=== PATIENT | female | born 1955 | race African-American/Black ===

== ENCOUNTER 2017-10-01 12:44 | Outpatient (CLI) | payer MEDICARE, OTHER ==
[2017-10-01 14:37] LABS: Anion Gap 11 mmol/L (10-20); BUN (Urea Nitrogen) 18 mg/dL (9.8-20.1); Calc. Creatinine Clearance 0 mL/min (70-130); Calcium 9.6 mg/dL (7.8-10.44); Carbon Dioxide 28 mmol/L (23-31); Chloride 103 mmol/L (98-107); Estimated GFR-MDRD 38
--- NOTE | 2017-10-03 16:00 | EKG ---
Test Reason : Blood Pressure : / mmHG Vent. Rate : 053 BPM Atrial Rate : 053 BPM P-R Int : 196 ms QRS Dur : 108 ms QT Int : 490 ms P-R-T Axes : 052 022 -34 degrees QTc Int : 459 ms Sinus bradycardia Minimal voltage criteria for LVH, may be normal variant Abnormal ECG When compared with ECG of 03-DEC-2013 15:19, Vent. rate has decreased BY [address] now depressed in Inferior leads Non-specific change in ST segment in Lateral leads T wave inversion now evident in Lateral leads Confirmed by DR. Sandro JACOBSEN ([id number]) on 10/03/2017 4:00:20 PM Referred By: RENARD Confirmed By:DR. Sandro JACOBSEN
== END 2017-10-01 12:45 | disposition home or self-care (01) ==
LOC: LABBT 12:44
PROVIDERS: ATTEND Surgery
DX: Z01.812 Encounter for preprocedural laboratory examination (principal); Z51.81 Encounter for therapeutic drug level monitoring; C50.111 Malignant neoplasm of central portion of right female breast; I63.9 Cerebral infarction, unspecified; Z79.01 Long term (current) use of anticoagulants
CPT/HCPCS: 80048; 93005; 93010

== ENCOUNTER 2018-08-19 08:18 | Outpatient (CLI) | payer MEDICARE | END 2018-08-19 08:19 | disposition home or self-care (01) | LOC: BICMAMMO 08:18 | PROVIDERS: ATTEND Radiology Radiation Oncology | DX: C50.511 Malignant neoplasm of lower-outer quadrant of right female breast (principal); Z80.3 Family history of malignant neoplasm of breast; Z85.3 Personal history of malignant neoplasm of breast; Z80.41 Family history of malignant neoplasm of ovary; Z98.890 Other specified postprocedural states | CPT/HCPCS: 77066; G0279 ==

== ENCOUNTER 2019-01-08 07:33 | Day surgery (SDC) | payer MEDICARE ==
[2019-01-07 15:00] VITALS: BMI 43.2
[2019-01-08] MEDS ORDERED: Insulin Regular 300 UNITS/3 ML VIAL ONE (09:46)
--- NOTE | 2019-01-08 12:25 | OP ---
DATE OF PROCEDURE: 01/08/2019 PROCEDURES: Esophagogastroduodenoscopy and colonoscopy with snare polypectomy. PREOPERATIVE DIAGNOSIS: Iron deficiency anemia. DESCRIPTION OF PROCEDURE: Informed consent was obtained from the patient. She was sedated with total intravenous anesthesia. The bite block was placed and the endoscope was advanced easily to the second portion of the duodenum and retroflexion was performed in the stomach. The esophagus was normal. The GE junction was normal. The stomach was normal including retroflexed views. The pylorus and first and second portions of the duodenum were normal. The patient was turned around. Rectal exam was performed and was normal. The colonoscope was advanced to the cecum, where the ileocecal valve and appendiceal orifice were clearly identified. A 7-to 8-mm sessile polyp was removed by snare cautery polypectomy from the hepatic flexure. A 4-mm polyp was removed by cold snare polypectomy from the descending colon. The remainder of the colonic mucosa was normal throughout. The preparation quality was good. Retroflexed views in the rectum revealed moderate internal hemorrhoids. IMPRESSION: 1. Normal esophagogastroduodenoscopy. 2. A 7-to 8-mm ascending polyp removed by hot snare. 3. A 4-mm descending polyp removed by cold snare. 4. Moderate internal hemorrhoids. 5. No source for the iron deficiency anemia was identified by this exam. She was noted to have hemoglobin in the 8.7 range and a ferritin of 14 to 15. RECOMMENDATIONS: 1. Await histopathology. 2. Repeat colonoscopy in 3 to 5 years depending on pathology results. 3. Capsule endoscopy as an outpatient. Job ID: [id number]
[2019-01-08] MEDS ORDERED: hydrALAZINE 20 MG/ML VIAL ONE (12:27)
[2019-01-08] MEDS ORDERED: PROPOFOL 200 MG/20 ML VIAL ONE (15:52)
== END 2019-01-08 13:00 | disposition home or self-care (01) ==
LOC: SDC 07:33
PROVIDERS: ATTEND Internal Medicine Gastroenterology
PROC: 0DJ08ZZ Inspection of Upper Intestinal Tract, Via Natural or Artificial Opening Endoscopic (ICD-10-PCS; principal; 2019-01-08)
PROC: 0DBM8ZX Excision of Descending Colon, Via Natural or Artificial Opening Endoscopic, Diagnostic (ICD-10-PCS; 2019-01-08)
PROC: 0DBL8ZX Excision of Transverse Colon, Via Natural or Artificial Opening Endoscopic, Diagnostic (ICD-10-PCS; 2019-01-08)
DX: D50.9 Iron deficiency anemia, unspecified (principal); D12.3 Benign neoplasm of transverse colon; K63.5 Polyp of colon; K64.8 Other hemorrhoids; I11.0 Hypertensive heart disease with heart failure; I50.9 Heart failure, unspecified; E11.9 Type 2 diabetes mellitus without complications; I25.10 Atherosclerotic heart disease of native coronary artery without angina pectoris; I25.2 Old myocardial infarction; E78.5 Hyperlipidemia, unspecified; Z86.010 Personal history of colon polyps; Z79.02 Long term (current) use of antithrombotics/antiplatelets; Z79.4 Long term (current) use of insulin; Z79.811 Long term (current) use of aromatase inhibitors; Z79.82 Long term (current) use of aspirin; Z79.899 Other long term (current) drug therapy; Z88.0 Allergy status to penicillin; Z88.5 Allergy status to narcotic agent
CPT/HCPCS: 36416; 88305; J0360; J1815; J2704

== ENCOUNTER 2019-03-05 12:07 | Outpatient (CLI) | payer MEDICARE ==
--- NOTE | 2019-03-05 12:43 | RAD ---
TWO VIEWS ABDOMEN: COMPARISON: None. HISTORY: Iron deficiency anemia. Evaluating for a camera pill taken for endoscopy. FINDINGS: Two views of the abdomen show a nonspecific, nonobstructed bowel gas pattern. Cholecystectomy clips are seen. No other radiopaque foreign body is seen projecting over the abdomen. IMPRESSION: Nonvisualization of camera pill. POS: TPC
== END 2019-03-05 12:08 | disposition home or self-care (01) ==
LOC: BICRAD 12:07
PROVIDERS: ATTEND Internal Medicine Gastroenterology
DX: D50.9 Iron deficiency anemia, unspecified (principal)
CPT/HCPCS: 74019

== ENCOUNTER 2019-03-26 08:50 | Outpatient (CLI) | payer MEDICARE ==
--- NOTE | 2019-03-26 09:51 | BD ---
DEXA SCAN: DATE: 03/26/2019. PROVIDED CLINICAL HISTORY: Postmenopausal screening. FINDINGS: Lumbar Spine: BMD (g/cm2) L1 1.126 T-Score: 1.2 L2 1.146 T-Score: 1.1 L3 1.100 T-Score: 0.1 L4 1.027 T-Score: -0.3 L1-L4 1.096 T-Score: 0.4 Femoral Neck: 0.720 T-Score: -1.2 Total Femur: 1.067 T-Score: 1.0 TEN YEAR FRACTURE RISK: Major osteoporotic 14%. Hip fracture 1.3%. Impression: Calculated bone mineral density meets WHO criteria for osteopenia in the left femoral neck and places the patient at increased risk for fracture. POS: JAQUELINE
== END 2019-03-26 08:51 | disposition home or self-care (01) ==
LOC: BICMAMMO 08:50
PROVIDERS: ATTEND Internal Medicine Hematology & Oncology
DX: Z13.820 Encounter for screening for osteoporosis (principal); T38.6X5A Adverse effect of antigonadotrophins, antiestrogens, antiandrogens, not elsewhere classified, initial encounter; C50.919 Malignant neoplasm of unspecified site of unspecified female breast; M85.89 Other specified disorders of bone density and structure, multiple sites
CPT/HCPCS: 77080

== ENCOUNTER 2019-07-27 15:03 | Outpatient (CLI) | payer MEDICARE ==
--- NOTE | 2019-07-27 15:42 | ULT ---
Exam: Right lower extremity venous ultrasound with Doppler HISTORY: Pain. Edema. Swelling. COMPARISON: None TECHNIQUE: Grayscale, color flow, Doppler imaging and spectral wave right lower extremity venous syst em FINDINGS: Enlarged right inguinal lymph node measuring 3.2 x 0.8 x 1 There is compressibility, presence of flow and augmentation common femoral vein, femoral vein and pop liteal vein. This flow and augmentation in the greater saphenous vein, profunda femoral vein and posterior tibial vein. IMPRESSION: 1. No thrombus in the right venous system. 2. Enlargement right inguinal lymph node.
== END 2019-07-27 15:04 | disposition home or self-care (01) ==
LOC: ULT 15:03
PROVIDERS: ATTEND Internal Medicine Hematology & Oncology
DX: M79.604 Pain in right leg (principal); R60.0 Localized edema; M79.89 Other specified soft tissue disorders; R59.0 Localized enlarged lymph nodes
CPT/HCPCS: 36415; 82728

== ENCOUNTER 2020-04-17 08:59 | Outpatient (CLI) | payer MEDICARE ==
--- NOTE | 2020-04-17 10:03 | MMO ---
Bilateral MAMMO Bilat Diag DDI+AYANA. CLINICAL HISTORY: Patient is 64 years old and is seen for diagnostic exam. The patient has the following family history of breast cancer: sister, malignant (generic). The patient has a history of Excisional biopsy procedure revealed invasive ductal right breast carcinoma in August, and ovarian cancer at age 37. VIEWS: The views performed were: bilateral craniocaudal with tomosynthesis; bilateral mediolateral oblique with tomosynthesis; and bilateral mediolateral with tomosynthesis. FILMS COMPARED: The present examination has been compared to prior imaging studies performed at [facility] on 06/21/2016, 06/23/2017, 07/07/2017 and 08/19/2018. This study has been interpreted with the assistance of computer-aided detection. MAMMOGRAM FINDINGS: There are scattered fibroglandular densities. Benign calcifications are noted bilaterally. There are stable right sided post-operative changes. There are no suspicious masses, suspicious calcifications, or new areas of architectural distortion. IMPRESSION: THERE IS NO MAMMOGRAPHIC EVIDENCE OF MALIGNANCY. A ROUTINE FOLLOW-UP MAMMOGRAM IN 1 YEAR IS RECOMMENDED. THE RESULTS OF THIS EXAM WERE SENT TO THE PATIENT. ACR BI-RADS Category 2 - Benign finding MAMMOGRAPHY NOTE: 1. A negative mammogram report should not delay a biopsy if a dominant of clinically suspicious mass is present. 2. Approximately 10% to 15% of breast cancers are not detected by mammography. 3. Adenosis and dense breasts may obscure an underlying neoplasm. Reported by: SHYANN SHETTY MD Electonically Signed: [id number]
--- NOTE | 2020-04-17 10:38 | BD ---
DEXA BONE DENSITOMETRY: (Dual energy x-ray absorptiometry) DATE: 04/17/2020 HISTORY: 64-year old white female for age-related, post-menopausal, osteoporosis screening. weight: 254 lbs height: 63 in. Age of menopause: 37 COMPARISON: 03/26/2019 FINDINGS: The bone mineral density (BMD) is given in grams per square centimeter (g/cm2): LUMBAR SPINE: BMD (g/cm^2) T score Z score L1: 1.049 0.5 2.2 L2: 1.088 0.5 2.4 L3: 1.006 -0.7 1.2 L4: 1.234 1.6 3.6 Total: 1.099 0.5 2.3 Change in BMD compared to previous DEXA: +0.2 %. HIP: BMD (g/cm^2) T score Z score Femoral neck: 0.738 -1.0 0.6 Total: 1.047 0.9 2.2 Change in BMD compared to previous DEXA: -1.9 %. IMPRESSION: 1.) The mean bone mineral density of the lumbar spine is normal. Fracture risk is not increased. 2) The bone mineral density of the femoral neck is osteopenic. Fracture risk is increased.
== END 2020-04-17 09:00 | disposition home or self-care (01) ==
LOC: BICMAMMO 08:59
PROVIDERS: ATTEND Internal Medicine Hematology & Oncology
DX: Z08 Encounter for follow-up examination after completed treatment for malignant neoplasm (principal); Z13.820 Encounter for screening for osteoporosis; M85.859 Other specified disorders of bone density and structure, unspecified thigh; Z85.3 Personal history of malignant neoplasm of breast; Z78.0 Asymptomatic menopausal state
CPT/HCPCS: 77066; 77080; G0279

== ENCOUNTER 2020-04-17 13:14 | Day surgery (SDC) | payer MEDICARE ==
[~2020-04-17 13:14] MED LIST: Ferumoxytol (NON ERSD) 510 MG in Sodium Chloride 0.9% 150 ML IVPB SCH
[2020-04-17] MEDS ORDERED: Sodium Chloride 0.9% 20 ML ONE (13:30)
[2020-04-17 13:59] VITALS: BP 153/77; TEMP 97.8
== END 2020-04-17 15:05 | disposition home or self-care (01) ==
LOC: ONC/OP 13:14
PROVIDERS: ATTEND Internal Medicine Hematology & Oncology
DX: D50.8 Other iron deficiency anemias (principal); N18.3 Chronic kidney disease, stage 3 (moderate); D63.1 Anemia in chronic kidney disease; C50.111 Malignant neoplasm of central portion of right female breast; Z88.0 Allergy status to penicillin; Z88.5 Allergy status to narcotic agent
CPT/HCPCS: 96365; J3490; Q0138

== ENCOUNTER 2020-04-27 09:50 | Day surgery (SDC) | payer MEDICARE ==
[~2020-04-27 09:50] MED LIST changes: +Ferumoxytol (ERSD) 510 MG in Sodium Chloride 0.9% 250 ML 150 ML IVPB SCH; -Ferumoxytol (NON ERSD) 510 MG in Sodium Chloride 0.9% 150 ML IVPB SCH
[2020-04-27] MEDS ORDERED: Sodium Chloride 0.9% 20 ML ONE (09:59)
[2020-04-27 10:25] VITALS: BP 198/93; TEMP 98.5
== END 2020-04-27 11:35 | disposition home or self-care (01) ==
LOC: ONC/OP 09:50
PROVIDERS: ATTEND Internal Medicine Hematology & Oncology
DX: D50.8 Other iron deficiency anemias (principal); N18.3 Chronic kidney disease, stage 3 (moderate); D63.1 Anemia in chronic kidney disease; C50.111 Malignant neoplasm of central portion of right female breast; Z88.0 Allergy status to penicillin; Z88.5 Allergy status to narcotic agent
CPT/HCPCS: 96365; J7050; Q0139

== ENCOUNTER 2020-05-04 09:56 | Day surgery (SDC) | payer MEDICARE ==
[2020-05-04 11:15] LABS: #Eosinphils 0.1 thou/uL (0.0-0.7); #Lymphocytes 1.8 thou/uL (1.20-3.40); #Monocytes 0.5 thou/uL (0.11-0.59); #Neutrophils 5.2 thou/uL (1.40-6.50); %Basophils 0.6 % (0.0-1.0); %Eosinophils 1.2 % (0.0-10.0); %Lymphocytes 23.9 % (21.0-51.0); %Monocytes 6.5 % (0.0-10.0); %Neutrophils 67.9 % (42.0-75.0); Elliptocytes SLIGHT = 2-5 cells (100X) (0-1/hpf); Hemoglobin 10.6 g/dL (12.0-16.0); Large Platelets SLIGHT; MDiff Complete? YES; Mean Corpuscular HGB CONC 32.8 g/dL (32.0-36.0); Mean Corpuscular Hemoglobin 26.3 pg (27.0-31.0); Mean Corpuscular Volume 80.1 fL (78.0-98.0); Platelet Count 102 thou/uL (130-400); Platelet Morphology Comment Appears Decreased; RBC Distribution Width 18.5 % (11.5-14.5); Red Blood Cell (RBC) Count 4.03 mill/uL (4.20-5.40); White Blood Cell (WBC) Count 7.7 thou/uL (4.8-10.8)
== END 2020-05-04 12:50 | disposition home or self-care (01) ==
LOC: ONC/OP 09:56
PROVIDERS: ATTEND Internal Medicine Hematology & Oncology
DX: D50.8 Other iron deficiency anemias (principal); N18.3 Chronic kidney disease, stage 3 (moderate); D63.1 Anemia in chronic kidney disease; C50.111 Malignant neoplasm of central portion of right female breast; Z88.0 Allergy status to penicillin; Z88.5 Allergy status to narcotic agent
CPT/HCPCS: 85025; 96365; J7050; Q0139

== ENCOUNTER 2020-11-23 08:59 | Inpatient (IN) | payer MEDICARE ==
[2020-11-23] MEDS ORDERED: Aspirin Chewable 81 MG TAB ONE (09:21)
[2020-11-23] MEDS ORDERED: Ondansetron PF 4 MG/2 ML Vial ONE (09:21)
--- NOTE | 2020-11-23 09:36 | RAD ---
Exam: Chest one view HISTORY:Chest pain Comparison: 01/31/2015 FINDINGS: Cardiac silhouette: Normal Aorta: Atherosclerosis Pulmonary vessels: Normal Costophrenic angles: Clear LUNGS: Chronic changes in the lung bases. No mass or consolidation. Pneumothorax: None Osseous abnormalities: None IMPRESSION: 1. Atherosclerosis 2. No acute cardiopulmonary process.
[2020-11-23 10:08] LABS: #Basophils 0.1 thou/uL (0.0-0.2); #Eosinphils 0.1 thou/uL (0.0-0.7); #Lymphocytes 1.4 thou/uL (1.20-3.40); #Monocytes 0.3 thou/uL (0.11-0.59); #Neutrophils 7.4 thou/uL (1.40-6.50); %Basophils 0.7 % (0.0-1.0); %Eosinophils 0.6 % (0.0-10.0); %Monocytes 2.9 % (0.0-10.0); %Neutrophils 80.9 % (42.0-75.0); Hemoglobin 13.8 g/dL (12.0-16.0); Mean Corpuscular HGB CONC 33.7 g/dL (32.0-36.0); Mean Corpuscular Hemoglobin 28.9 pg (27.0-31.0); Mean Corpuscular Volume 85.8 fL (78.0-98.0); Mean Platelet Volume 10.1 fL (7.4-10.4); Platelet Count 155 thou/uL (130-400); RBC Distribution Width 12.6 % (11.5-14.5); Red Blood Cell (RBC) Count 4.78 mill/uL (4.20-5.40); White Blood Cell (WBC) Count 9.1 thou/uL (4.8-10.8)
[2020-11-23 10:32] LABS: ALT (SGPT) 19 U/L (8-55); AST (SGOT) 22 U/L (5-34); Albumin 3.2 g/dL (3.4-4.8); Alkaline Phosphatase 88 U/L (40-110); Anion Gap 17 mmol/L (10-20); BUN (Urea Nitrogen) 31 mg/dL (9.8-20.1); Bilirubin, Total 0.3 mg/dL (0.2-1.2); Calc. Creatinine Clearance 0 mL/min (70-130); Carbon Dioxide 22 mmol/L (23-31); Chloride 96 mmol/L (98-107); Globulin 3.7 g/dL (2.4-3.5); Lipase 115 U/L (8-78); Potassium 4.8 mmol/L (3.5-5.1); Protein, Total 6.9 g/dL (6.0-8.3); Sodium 130 mmol/L (136-145)
[2020-11-23 10:37] LABS: Glucose 582 mg/dL (80-115)
[2020-11-23 10:51] LABS: CKMB 2.9 ng/mL (0-6.6)
[2020-11-23] MEDS ORDERED: Insulin Regular 300 UNITS/3 ML VIAL ONE (11:29)
[2020-11-23] MEDS ORDERED: Dextrose 50% Abboject 50 ML SYRINGE SLOW IVP PRN (13:14)
[2020-11-23] MEDS ORDERED: HumaLOG 300 UNITS/3 ML VIAL SC PRN (13:14)
[2020-11-23] MEDS ORDERED: Dextrose 5% in Water 1,000 ML IV PRN (13:14)
--- NOTE | 2020-11-23 13:44 | PDOC.HHP ---
Hospitalist HPI - History of Present Illness Chest pain History of Present Illness: Ms. Nick is a 65-year-old female with a past medical history of type 2 diabetes mellitus, hypertension, hyperlipidemia, GERD, CVA in 2010, CHF, question A. fib who presented to the emergency room for chest pain. She reports that when she woke up this morning she had crushing squeezing chest pain that she described as 10 out of 10 which lasted hours and was constant in nature. Patient reports that she feels better leaning forward and the pain is worse when she is lying back. She denies shortness of breath. Denies radiation. No abdominal pain or acid reflux. She denies any history of cardiac disease or history of chest pain. She is a non-smoker. Her primary care provider is Dr. Horton. In the emergency room initial vital signs 136/89, 85, 18, 98% on room air. EKG showed nonspecific T wave inversions. Troponin 0 0.130. Lipase 115. BUN/CR 31/2.45. Glucose 582. Sodium 130, potassium 4.8. H/H 13.8/41.0, WBC 9.1. In emergency room patient received 325 mg of aspirin, 1 L of normal saline, 10 units of Humulin. Hospitalist ROS - Review of Systems Constitutional: denies: fever, chills, sweats, weakness, malaise, other Eyes: denies: pain, vision change, conjunctivae inflammation, eyelid inflammation, redness, other ENT: denies: ear pain, ear discharge, nose pain, nose discharge, nose congestion, mouth pain, mouth swelling, throat pain, throat swelling, other Respiratory: denies: cough, dry, shortness of breath, hemoptysis, SOB with excertion, pleuritic pain, sputum, wheezing, other Cardiovascular: reports: chest pain. denies: palpitations, orthopnea, paroxysmal noc. dyspnea, edema, light headedness, other Gastrointestinal: denies: nausea, vomiting, abdominal pain, diarrhea, constipation, melena, hematochezia, other Genitourinary: denies: dysuria, frequency, incontinence, hematuria, retention, other Musculoskeletal: denies: neck pain, shoulder pain, arm pain, back pain, hand pain, leg pain, foot pain, other Skin: denies: rash, lesions, forrest, bruising, other Neurological: denies: weakness, numbness, incoordination, change in speech, confusion, seizures, other - Medication Medications: Medications include Aspirin Plavix Clonidine Coreg Gabapentin Glipizide Isosorbide Lasix Pantoprazole Simvastatin Zetia Allergy to codeine and penicillins Hospitalist History - Past Medical History Other Medical History: Medical history includes Type 2 diabetes mellitus Hypertension Hyperlipidemia GERD CVA in 2010 CHF Question of atrial fibrillation - Past Surgical History Other Surgical History: Past surgical history includes Cholecystectomy Hysterectomy - Family History Other Family History: Patient denies family history of cardiac disease, does report family history of hypertension - Social History Smoking Status: Never smoker Alcohol: reports: None Drugs: reports: none Living Situation: With Family Activity level: independent ambulation - Exam General Appearance: NAD, awake alert Eye: PERRL, anicteric sclera ENT: normocephalic atraumatic, no oropharyngeal lesions, moist mucosa Neck: supple, symmetric, no JVD, no thyromegaly, no lymphadenopathy, no carotid bruit Heart: RRR, no murmur, no gallops, no rubs, normal peripheral pulses Respiratory: CTAB, no wheezes, no rales, no ronchi, normal chest expansion, no tachypnea, normal percussion Gastrointestinal: soft, non-tender, non-distended, normal bowel sounds, no palpable masses, no hepatomegaly, no splenomegaly, no bruit Extremities: no cyanosis, no clubbing, no edema Skin: normal turgor, no lesions, no rashes Neurological: cranial nerve grossly intact, normal sensation to touch, no weakness, no focal deficits, no new deficit Musculoskeletal: normal tone, normal strength, no muscle wasting Psychiatric: normal affect, normal behavior, A&O x 3 Hospitalist Results - Labs Result Diagrams: 11/23/20 09:50 11/23/20 09:50 Lab results: WBC 9.1 thou/uL (4.8-10.8) 11/23/20 09:50 Hgb 13.8 g/dL (12.0-16.0) 11/23/20 09:50 Hct 41.0 % (36.0-47.0) 11/23/20 09:50 MCV 85.8 fL (78.0-98.0) 11/23/20 09:50 Plt Count 155 thou/uL (130-400) 11/23/20 09:50 Neutrophils % 80.9 % (42.0-75.0) H 11/23/20 09:50 Sodium 130 mmol/L (136-145) L 11/23/20 09:50 Potassium 4.8 mmol/L (3.5-5.1) 11/23/20 09:50 Chloride 96 mmol/L (98-107) L 11/23/20 09:50 Carbon Dioxide 22 mmol/L (23-31) L 11/23/20 09:50 BUN 31 mg/dL (9.8-20.1) H 11/23/20 09:50 Creatinine 2.45 mg/dL (0.6-1.1) H 11/23/20 09:50 Glucose 582 mg/dL (80-115) H* 11/23/20 09:50 Calcium 9.0 mg/dL (7.8-10.44) 11/23/20 09:50 Total Bilirubin 0.3 mg/dL (0.2-1.2) 11/23/20 09:50 AST 22 U/L (5-34) 11/23/20 09:50 ALT 19 U/L (8-55) 11/23/20 09:50 Alkaline Phosphatase 88 U/L (40-110) 11/23/20 09:50 CK-MB (CK-2) 2.9 ng/mL (0-6.6) 11/23/20 09:50 Troponin I 0.130 ng/mL (< 0.028) H 11/23/20 09:50 Serum Total Protein 6.9 g/dL (6.0-8.3) 11/23/20 09:50 Albumin 3.2 g/dL (3.4-4.8) L 11/23/20 09:50 Lipase 115 U/L (8-78) H 11/23/20 09:50 Hospitalist H&P A/P - Plan Plan: Chest pain 65-year-old female with past medical story of diabetes, hypertension, hyperlipidemia, stroke in 2010, question A. fib presents with acute onset of chest pain that started this morning. Chest pain is atypical in nature squeezing pressure on 10 out of 10 lasting hours. Patient currently pain-free. Chest pain is positional. Troponin mildly elevated at 0.130. EKG with nonspecific T wave inversions, no ST elevation. Chest x-ray with no acute findings. Plan Trend troponin Telemetry monitoring ASA, Plavix, statin Consider cardiology consult Elevated troponin Troponin mildly elevated at 0.130. Patient's chest pain symptoms atypical, however patient is female and diabetic. Patient's kidney function is decreased with BUNs/CR 31/2.45. Patient is a poor historian and unaware of any kidney problems, however in records she has history of elevated creatinine levels. Question if troponin is elevated in setting of CKD versus NSTEMI. Plan Trend troponin Trend kidney function Echocardiogram Consider stress test if troponin stays negative Consider cardiology consult Closely monitor for symptoms Hyperglycemia Patient hyperglycemic to 582 on presentation. No change in mental status. Patient received 10 units of insulin in emergency room. No anion gap and bicarb normal. Low suspicion for DKA. Plan Beta hydroxybutyrate Standing insulin Insulin sliding scale Every 2 hour glucose checks Acute kidney injury ISABELL with BUN/CR 31/2.45. Patient denies history of chronic kidney disease. Unaware of baseline creatinine. Remote history years ago shows elevation in creatinine level. Patient received 1 L of IV fluids in emergency room. Plan Gentle fluids Trend kidney function Avoid nephrotoxic agents were possible Hypertension History of hypertension, will continue home antihypertensives. Hyperlipidemia We will continue home statin and lipid medications History of stroke History of stroke on aspirin, Plavix we will continue CHF Patient with question of CHF. No echocardiogram on her records. Patient on aspirin, Plavix, Coreg, isosorbide. We will continue home medications and pursue echocardiogram. DVT prophylaxisSQ heparin Full code
[2020-11-23 14:03] LABS: Troponin I 0.154 ng/mL (< 0.028)
[2020-11-23] MEDS: Heparin 5,000 UNITS/ML VIAL SC SCH ×2 (15:37→21:25)
[2020-11-23] MEDS: hydrALAZINE 20 MG/ML VIAL SLOW IVP PRN (16:09)
[2020-11-23 16:47] LABS: Troponin I 0.129 ng/mL (< 0.028)
[2020-11-23 17:33] LABS: SARS-CoV-2 MS2 Positive; SARS-CoV-2 N Gene Negative; SARS-CoV-2 S Gene Negative; SARS-CoV-2 by NAA Not Detected (NotDetected); SARS-CoV-2 orf1ab Negative
[2020-11-23] MEDS: Acetaminophen 325 MG TAB PO PRN (17:50)
[2020-11-23] MEDS: HumaLOG 300 UNITS/3 ML VIAL SC PRN (17:51)
[2020-11-23 20:32] LABS: CKMB 3.3 ng/mL (0-6.6)
[2020-11-23] MEDS: Insulin Glargine 20 UNITS in Pre-Filled Syringe SC SCH (21:23)
[2020-11-23] MEDS: Ezetimibe 10 MG TAB PO SCH (21:27)
[2020-11-23] MEDS: hydrALAZINE 25 MG TAB PO SCH (21:27)
[2020-11-23] MEDS: Atorvastatin Calcium 20 MG TAB PO SCH (21:27)
[2020-11-23] MEDS: Carvedilol 6.25 MG TAB PO SCH (21:28)
[2020-11-23] MEDS: Allopurinol 300 MG TAB PO SCH (21:28)
[2020-11-24] MEDS: Nitroglycerin 0.4 MG TAB (25 Tab Bottle) SL PRN ×2 (00:28→00:36)
[2020-11-24] MEDS: Acetaminophen 325 MG TAB PO PRN ×3 (00:34→21:20)
[2020-11-24] MEDS ORDERED: Morphine 2 MG/ML VIAL SLOW IVP SCH (01:00)
[2020-11-24] MEDS ORDERED: Ondansetron PF 4 MG/2 ML Vial IVP PRN (01:15)
[2020-11-24] MEDS ORDERED: Ondansetron ODT 4 MG TAB PO PRN (01:15)
[2020-11-24] MEDS: hydrALAZINE 20 MG/ML VIAL SLOW IVP PRN ×2 (01:25→12:24)
[2020-11-24 01:59] LABS: Troponin I 0.147 ng/mL (< 0.028)
[2020-11-24 04:44] LABS: #Eosinphils 0.1 thou/uL (0.0-0.7); #Monocytes 0.5 thou/uL (0.11-0.59); #Neutrophils 6.2 thou/uL (1.40-6.50); %Basophils 0.3 % (0.0-1.0); %Eosinophils 0.7 % (0.0-10.0); %Lymphocytes 22.9 % (21.0-51.0); %Monocytes 5.3 % (0.0-10.0); %Neutrophils 70.9 % (42.0-75.0); Hemoglobin 12.6 g/dL (12.0-16.0); Mean Corpuscular HGB CONC 32.9 g/dL (32.0-36.0); Mean Corpuscular Hemoglobin 28.5 pg (27.0-31.0); Mean Corpuscular Volume 86.7 fL (78.0-98.0); Mean Platelet Volume 10.2 fL (7.4-10.4); Platelet Count 160 thou/uL (130-400); RBC Distribution Width 12.8 % (11.5-14.5); Red Blood Cell (RBC) Count 4.42 mill/uL (4.20-5.40); White Blood Cell (WBC) Count 8.7 thou/uL (4.8-10.8)
[2020-11-24 05:15] LABS: Anion Gap 15 mmol/L (10-20); BUN (Urea Nitrogen) 31 mg/dL (9.8-20.1); Calc. Creatinine Clearance 41 mL/min (70-130); Calcium 8.9 mg/dL (7.8-10.44); Carbon Dioxide 21 mmol/L (23-31); Cardiac Risk 8.1 (Less than 4.5); Chloride 104 mmol/L (98-107); Cholesterol 275 mg/dl (< 200 Desired); Glucose 217 mg/dL (80-115); HDL Cholesterol 34 mg/dL (>60 Neg Risk); LDL Cholesterol, Calculated 181 mg/dL; Potassium 4.3 mmol/L (3.5-5.1); Sodium 136 mmol/L (136-145); Triglycerides 299 mg/dL (Less than 150)
[2020-11-24] MEDS: Nitroglycerin 2% Ointment 1 INCH/1 GM Packet TOP SCH ×3 (06:38→21:21)
[2020-11-24] MEDS: hydrALAZINE 25 MG TAB PO SCH ×3 (08:27→21:19)
[2020-11-24] MEDS: Clopidogrel Bisulfate 75 MG TAB PO SCH (08:32)
[2020-11-24] MEDS: Heparin 5,000 UNITS/ML VIAL SC SCH ×3 (08:33→21:22)
[2020-11-24] MEDS: Aspirin 81 mg Enteric Coated Tablet PO SCH (08:33)
[2020-11-24] MEDS ORDERED: Aspirin Chewable 81 MG TAB PO SCH (09:00)
[2020-11-24] MEDS ORDERED: Furosemide 40 MG TAB PO SCH (09:00)
[2020-11-24] MEDS ORDERED: FLU VACC QS2020-21(65YR UP)/PF 240 MCG/0.7 ML SYRINGE IM ONE (09:00)
[2020-11-24] MEDS ORDERED: Gabapentin 300 MG CAP PO SCH (09:00)
--- NOTE | 2020-11-24 12:00 | NM ---
Exam: Nuclear medicine stress only with EF and wall motion HISTORY: Chest pain TECHNIQUE: Stress only imaging was performed. Patient was administered 28.40 mCi of technetium 99 ses tamibi. Cardiac gating was performed FINDINGS: Homogeneous distribution of the radiotracer in the left ventricle End-diastolic volume is 146 mL End-systolic volume is 89 L Cardiac gating and wall motion: There is diffuse decreased wall motion. 39% ejection fraction IMPRESSION: 1. Homogeneous distribution of the radiotracer. 2. Global hypokinesis. 39% ejection fraction.
[2020-11-24] MEDS ORDERED: Regadenoson 0.4 MG/5 ML SYRINGE ONE (12:02)
[2020-11-24] MEDS: Insulin Glargine 20 UNITS in Pre-Filled Syringe SC SCH ×2 (12:20→21:22)
[2020-11-24] MEDS: Carvedilol 6.25 MG TAB PO SCH ×2 (12:21→21:21)
--- NOTE | 2020-11-24 15:31 | PDOC.HOSPP ---
- Subjective Encounter Date: 11/24/20 Encounter Time: 15:48 Subjective: patient seen on f/u for chest pain. patient currently denies any chest pain sob palpitation or diaphoresis - Objective Vital Signs & Weight: Vital Signs (12 hours) Temp Pulse Resp BP Pulse Ox 11/24/20 15:00 98.0 F 80 18 157/82 H 97 11/24/20 13:08 139/71 11/24/20 12:24 94 11/24/20 12:10 98.0 F 94 18 187/83 H 95 11/24/20 08:20 98.0 F 84 18 209/97 H 97 Weight Weight 224 lb Result Diagrams: 11/24/20 04:02 11/24/20 04:02 Additional Labs: Accuchecks 11/24/20 11/23/20 11/23/20 10:53 23:45 20:16 POC Glucose 282 H 197 H 290 H 11/23/20 17:06 POC Glucose 305 H Hospitalist ROS - Review of Systems All other systems reviewed; all pertinent +/- noted in HPI/Subj - Medication Medications: Active Medications Generic Name Dose Route Start Last Admin Trade Name Freq PRN Reason Stop Dose Admin Acetaminophen 650 mg 11/23/20 15:26 11/24/20 07:04 Acetaminophen 325 Mg Tab PO 650 mg Q6H PRN Administration Fever/Mild Pain Allopurinol 150 mg 11/23/20 21:00 11/23/20 21:28 Allopurinol 300 Mg Tab PO 150 mg QPM RED Administration Aspirin 81 mg 11/24/20 09:00 11/24/20 08:33 Aspirin 81 Mg Enteric Coated Tablet PO 81 mg QAM RED Administration Atorvastatin Calcium 20 mg 11/23/20 21:00 11/23/20 21:27 Atorvastatin Calcium 20 Mg Tab PO 20 mg HS RED Administration Carvedilol 12.5 mg 11/23/20 21:00 11/24/20 12:21 Carvedilol 6.25 Mg Tab PO 12.5 mg BID RED Administration Clopidogrel Bisulfate 75 mg 11/24/20 09:00 11/24/20 08:32 Clopidogrel Bisulfate 75 Mg Tab PO 75 mg DAILY RED Administration Ezetimibe 10 mg 11/23/20 21:00 11/23/20 21:27 Ezetimibe 10 Mg Tab PO 10 mg QPM RED Administration Furosemide 40 mg 11/24/20 09:00 11/24/20 08:28 Furosemide 40 Mg Tab PO 40 mg DAILY RED Administration Gabapentin 900 mg 11/24/20 09:00 11/24/20 08:32 Gabapentin 300 Mg Cap PO 900 mg DAILY RED Administration Heparin Sodium (Porcine) 5,000 units 11/23/20 15:00 11/24/20 15:01 Heparin 5,000 Units/Ml Vial SC 5,000 units TID RED Administration Hydralazine HCl 10 mg 11/23/20 15:25 11/24/20 12:24 Hydralazine 20 Mg/Ml Vial SLOW IVP 10 mg Q4H PRN Administration SBP Greater Than 180 Hydralazine HCl 100 mg 11/23/20 21:00 11/24/20 15:01 Hydralazine 25 Mg Tab PO 100 mg TID RED Administration Insulin Glargine 20 units/ 0.2 mls @ 0 mls/hr 11/23/20 21:00 11/23/20 21:23 Miscellaneous Medication SC 0.2 mls HS RED Administration Insulin Glargine 20 units/ 0.2 mls @ 0 mls/hr 11/24/20 09:00 11/24/20 12:20 Miscellaneous Medication SC 0.2 mls QAM RED Administration Insulin Human Lispro 0 units 11/23/20 13:14 11/23/20 17:51 Humalog 300 Units/3 Ml Vial SC 8 unit .MODERATE SLIDING SC PRN Administration Moderate Correctional Scale Insulin Human Lispro 0 units 11/23/20 13:14 11/23/20 21:23 Humalog 300 Units/3 Ml Vial SC 3 unit .BEDTIME SLIDING SC PRN Administration Bedtime Correctional Scale Isosorbide Mononitrate 90 mg 11/24/20 09:00 11/24/20 12:21 Isosorbide Mononitrate Er 60 Mg Tab PO 90 mg QAM RED Administration Nitroglycerin 0.4 mg 11/23/20 13:55 11/24/20 00:36 Nitroglycerin 0.4 Mg Tab (25 Tab Bottle) SL 1 tab Q5MIN PRN Administration Chest Pain Nitroglycerin 0.5 inch 11/24/20 06:00 11/24/20 15:14 Nitroglycerin 2% Ointment 1 Inch/1 Gm Packet TOP Not Given Q8HR [facility] Ondansetron HCl 4 mg 11/24/20 01:15 11/24/20 01:24 Ondansetron Pf 4 Mg/2 Ml Vial IVP 4 mg Q6H PRN Administration Nausea/Vomiting Pantoprazole Sodium 40 mg 11/24/20 09:00 11/24/20 08:33 Pantoprazole 40 Mg Tab PO 40 mg QAM RED Administration - Exam General Appearance: NAD, awake alert Eye: PERRL, anicteric sclera ENT: normocephalic atraumatic, no oropharyngeal lesions Neck: supple, symmetric, no JVD Heart: RRR, no murmur, no gallops Respiratory: CTAB, no wheezes, no rales, no ronchi Gastrointestinal: soft, non-tender, non-distended, normal bowel sounds Extremities: no cyanosis, no clubbing, no edema Skin: normal turgor, no lesions, no rashes Neurological: cranial nerve grossly intact, normal sensation to touch Musculoskeletal: normal tone, normal strength Psychiatric: normal affect, normal behavior, oriented to person, oriented to place Hosp A/P - Plan chest pain - currently chest pain free - continue CAD protective medication with asa + plavix beta vane and statin - also on imdur - stress test showed on EF of 39%, with global hypokenisia, last echo on 2016 with an EF on 60% - will consult cardiology - stable troponin DM - continue SS+ CC htn continue home meds, will monitor hld continue statin corrina - unclear base, will continue to hydrate, improved from yesterday
[2020-11-24] MEDS: HumaLOG 300 UNITS/3 ML VIAL SC PRN (16:53)
--- NOTE | 2020-11-24 18:17 | EKG ---
Test Reason : STAT Blood Pressure : / mmHG Vent. Rate : 079 BPM Atrial Rate : 079 BPM P-R Int : 156 ms QRS Dur : 098 ms QT Int : 434 ms P-R-T Axes : 055 -04 184 degrees QTc Int : 497 ms Normal sinus rhythm Possible Left atrial enlargement Left ventricular hypertrophy Septal infarct , age undetermined T wave abnormality, consider inferolateral ischemia Abnormal ECG When compared with ECG of 23-NOV-2020 09:26, (Unconfirmed) Minimal criteria for Septal infarct are now Present Non-specific change in ST segment in Anterolateral leads Inverted T waves have replaced nonspecific T wave abnormality in Inferior leads Confirmed by DR. Derian COREAS MD ([id number]) on 11/24/2020 6:16:34 PM Referred By: MATHEW Confirmed By:DR. Derian COREAS MD
[2020-11-24] MEDS: Atorvastatin Calcium 20 MG TAB PO SCH (21:21)
[2020-11-24] MEDS: Ezetimibe 10 MG TAB PO SCH (21:21)
[2020-11-24] MEDS: Allopurinol 300 MG TAB PO SCH (21:22)
[2020-11-25] MEDS: HumaLOG 300 UNITS/3 ML VIAL SC PRN ×3 (05:44→16:51)
[2020-11-25] MEDS: Nitroglycerin 2% Ointment 1 INCH/1 GM Packet TOP SCH ×2 (05:47→15:34)
[2020-11-25 06:26] LABS: #Basophils 0.1 thou/uL (0.0-0.2); #Eosinphils 0.1 thou/uL (0.0-0.7); #Lymphocytes 2.6 thou/uL (1.20-3.40); #Monocytes 0.5 thou/uL (0.11-0.59); #Neutrophils 4.6 thou/uL (1.40-6.50); %Eosinophils 1.4 % (0.0-10.0); %Lymphocytes 33.4 % (21.0-51.0); %Monocytes 6.1 % (0.0-10.0); %Neutrophils 58.1 % (42.0-75.0); Hemoglobin 13.1 g/dL (12.0-16.0); Mean Corpuscular Hemoglobin 28.8 pg (27.0-31.0); Mean Corpuscular Volume 87.2 fL (78.0-98.0); Platelet Count 157 thou/uL (130-400); RBC Distribution Width 12.8 % (11.5-14.5); Red Blood Cell (RBC) Count 4.56 mill/uL (4.20-5.40); White Blood Cell (WBC) Count 7.9 thou/uL (4.8-10.8)
[2020-11-25 06:53] LABS: Anion Gap 16 mmol/L (10-20); BUN (Urea Nitrogen) 34 mg/dL (9.8-20.1); Calc. Creatinine Clearance 33 mL/min (70-130); Calcium 8.9 mg/dL (7.8-10.44); Carbon Dioxide 23 mmol/L (23-31); Chloride 103 mmol/L (98-107); Glucose 161 mg/dL (80-115); Sodium 138 mmol/L (136-145)
[2020-11-25] MEDS: Aspirin 81 mg Enteric Coated Tablet PO SCH (08:27)
[2020-11-25] MEDS: Insulin Glargine 20 UNITS in Pre-Filled Syringe SC SCH ×2 (08:27→20:08)
[2020-11-25] MEDS: Gabapentin 300 MG CAP PO SCH ×2 (08:27→19:56)
[2020-11-25] MEDS: hydrALAZINE 25 MG TAB PO SCH ×2 (08:27→15:34)
[2020-11-25] MEDS: Clopidogrel Bisulfate 75 MG TAB PO SCH (08:27)
[2020-11-25] MEDS: Heparin 5,000 UNITS/ML VIAL SC SCH (08:28)
[2020-11-25] MEDS: Carvedilol 6.25 MG TAB PO SCH ×2 (08:28→19:55)
[2020-11-25] MEDS: Nitroglycerin 0.4 MG TAB (25 Tab Bottle) SL PRN (09:40)
[2020-11-25] MEDS ORDERED: Sodium Chloride 0.9% 500 ML IV SCH ×2 (10:30→11:30)
--- NOTE | 2020-11-25 10:58 | PDOC.HOSPP ---
- Subjective Encounter Date: 11/25/20 Encounter Time: 10:57 Subjective: patient seen on f/u for chest pain and abnormal stress test. during my evaluation patient was fine with no complains. after about an hour i was notified that patient was having another episode of chest pain 09/09 associated with some hypotension and sob. ekg was ordered and a new sets of troponins were ordered. EKG showed NSR, cardio was notified - Objective Vital Signs & Weight: Vital Signs (12 hours) Temp Pulse Resp BP BP Pulse Ox 11/25/20 09:45 114/57 L 11/25/20 07:15 98.0 F 80 16 167/70 H 97 11/25/20 03:23 98.1 F 79 20 145/77 H 93 L 11/25/20 00:00 135/61 Weight Admit Weight 224 lb Weight 221 lb 11.2 oz I&O: 11/24/20 11/25/20 11/26/20 06:59 06:59 06:59 Intake Total 240 Output Total 1200 Balance -960 Result Diagrams: 11/25/20 06:05 11/25/20 06:05 Additional Labs: Accuchecks 11/25/20 11/25/20 11/24/20 10:12 05:03 23:47 POC Glucose 149 H 178 H 230 H 11/24/20 11/24/20 11/24/20 19:56 16:43 10:53 POC Glucose 319 H 383 H 282 H Hospitalist ROS - Review of Systems All other systems reviewed; all pertinent +/- noted in HPI/Subj - Medication Medications: Active Medications Generic Name Dose Route Start Last Admin Trade Name Lbq PRN Reason Stop Dose Admin Acetaminophen 650 mg 11/23/20 15:26 11/24/20 21:20 Acetaminophen 325 Mg Tab PO 650 mg Q6H PRN Administration Fever/Mild Pain Allopurinol 150 mg 11/23/20 21:00 11/24/20 21:22 Allopurinol 300 Mg Tab PO 150 mg QPM RED Administration Aspirin 81 mg 11/24/20 09:00 11/25/20 08:27 Aspirin 81 Mg Enteric Coated Tablet PO 81 mg QAM RED Administration Atorvastatin Calcium 20 mg 11/23/20 21:00 11/24/20 21:21 Atorvastatin Calcium 20 Mg Tab PO 20 mg HS RED Administration Carvedilol 12.5 mg 11/23/20:00 11/25/20 08:28 Carvedilol 6.25 Mg Tab PO 12.5 mg BID RED Administration Clopidogrel Bisulfate 75 mg 11/24/20 09:00 11/25/20 08:27 Clopidogrel Bisulfate 75 Mg Tab PO 75 mg DAILY RED Administration Ezetimibe 10 mg 11/23/20 21:00 11/24/20 21:21 Ezetimibe 10 Mg Tab PO 10 mg QPM RED Administration Gabapentin 300 mg 11/25/20 09:00 11/25/20 08:27 Gabapentin 300 Mg Cap PO 300 mg BID RED Administration Hydralazine HCl 10 mg 11/23/20 15:25 11/24/20 12:24 Hydralazine 20 Mg/Ml Vial SLOW IVP 10 mg Q4H PRN Administration SBP Greater Than 180 Hydralazine HCl 100 mg 11/23/20 21:00 11/25/20 08:27 Hydralazine 25 Mg Tab PO 100 mg TID RED Administration Insulin Glargine 20 units/ 0.2 mls @ 0 mls/hr 11/23/20 21:00 11/24/20 21:22 Miscellaneous Medication SC 0.2 mls HS RED Administration Insulin Glargine 20 units/ 0.2 mls @ 0 mls/hr 11/24/20 09:00 11/25/20 08:27 Miscellaneous Medication SC 0.2 mls QAM RED Administration Insulin Human Lispro 0 units 11/23/20 13:14 11/25/20 05:44 Humalog 300 Units/3 Ml Vial SC 2 unit .MODERATE SLIDING SC PRN Administration Moderate Correctional Scale Insulin Human Lispro 0 units 11/23/20 13:14 11/23/20 21:23 Humalog 300 Units/3 Ml Vial SC 3 unit .BEDTIME SLIDING SC PRN Administration Bedtime Correctional Scale Isosorbide Mononitrate 90 mg 11/24/20 09:00 11/25/20 08:27 Isosorbide Mononitrate Er 60 Mg Tab PO 90 mg QAM RED Administration Nitroglycerin 0.4 mg 11/23/20 13:55 11/25/20 09:40 Nitroglycerin 0.4 Mg Tab (25 Tab Bottle) SL 1 tab Q5MIN PRN Administration Chest Pain Nitroglycerin 0.5 inch 11/24/20 06:00 11/25/20 05:47 Nitroglycerin 2% Ointment 1 Inch/1 Gm Packet TOP 0.5 inch Q8HR RED Administration Ondansetron HCl 4 mg 11/24/20 01:15 11/24/20 01:24 Ondansetron Pf 4 Mg/2 Ml Vial IVP 4 mg Q6H PRN Administration Nausea/Vomiting Pantoprazole Sodium 40 mg 11/24/20 09:00 11/25/20 08:27 Pantoprazole 40 Mg Tab PO 40 mg QAM RED Administration - Exam General Appearance: NAD, awake alert Eye: PERRL, anicteric sclera ENT: normocephalic atraumatic, no oropharyngeal lesions Neck: supple, symmetric, no JVD Heart: RRR, no murmur, no gallops Respiratory: CTAB, no wheezes, no rales, no ronchi Gastrointestinal: soft, non-tender, non-distended Extremities: no cyanosis, no clubbing, no edema Skin: normal turgor, no lesions, no rashes Neurological: cranial nerve grossly intact, normal sensation to touch Musculoskeletal: normal tone, normal strength Psychiatric: normal affect, normal behavior, A&O x 3 Hosp A/P (1) Chest pain Code(s): R07.9 - CHEST PAIN, UNSPECIFIED Status: Acute (2) Diabetes mellitus Code(s): E11.9 - TYPE 2 DIABETES MELLITUS WITHOUT COMPLICATIONS Status: Acute - Plan chest pain - continue CAD protective medication with asa + plavix beta vane and statin - also on imdur - stress test showed on EF of 39%, with global hypokenisia, last echo on 2016 with an EF on 60% - cardiology consulted, would like to proceed with C if pt is agreeable. 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
[2020-11-25 11:18] LABS: CKMB 1.6 ng/mL (0-6.6)
[2020-11-25] MEDS: Sodium Chloride 0.9% 1,000 ML IV SCH (11:49)
--- NOTE | 2020-11-25 12:43 | CON ---
DATE OF CONSULTATION: HISTORY OF PRESENT ILLNESS: The patient is a 65-year-old woman, who presents for evaluation of chest discomfort. The patient has a history of peripheral vascular disease and diabetes mellitus. She states that Dr. Roy had previously placed several peripheral stents. The patient denies having any previous cardiac history. The patient presented to the emergency room several days ago with chest discomfort. She states that this was a midsternal chest discomfort, It did not radiate. It was not associated with diaphoresis or dyspnea. The patient reports that she had this chest discomfort returned this morning. She reports it is a midsternal discomfort, it did not radiate. The patient denies having any history of PND or orthopnea. PAST MEDICAL HISTORY: 1. Peripheral vascular disease. 2. Diabetes mellitus. 3. Hypertension. 4. Dyslipidemia. 5. Chronic renal insufficiency. PAST SURGICAL HISTORY: None. SOCIAL HISTORY: Nonsmoker. MEDICATIONS: 1. Gabapentin one capsule b.i.d. 2. Insulin. 3. Zocor 40 at bedtime. 4. Allopurinol 150 daily. 5. Hydralazine 100 t.i.d. 6. Protonix 40 daily. 7. Plavix 75 daily. 8. Imdur 90 daily. 9. Clonidine 0.2 t.i.d. 10. Glipizide 5 daily. 11. Lasix 40 daily. 12. Coreg 12.5 b.i.d. 13. Aspirin 81 daily. REVIEW OF SYSTEMS: Ten-point system otherwise unremarkable. PHYSICAL EXAMINATION: GENERAL: This is an obese woman, in no acute distress. VITAL SIGNS: Blood pressure is 114/57. NECK: Showed no jugular venous distention. LUNGS: Clear to auscultation. HEART: Regular rate and rhythm. Normal S1 and S2. ABDOMEN: Distended. EXTREMITIES: Showed trace edema. VASCULAR: She has diminished radial and femoral pulses. LABORATORY DATA: White blood cell count 7.9, hemoglobin 13.1, hematocrit 39.8, platelets are 157. Sodium is 138, potassium 4.0, chloride 103, bicarbonate 23, BUN 34, creatinine 2.6. glucose is 161. EKG normal sinus rhythm, left ventricular hypertrophy, ST-T wave abnormality suggestive of ischemia. IMPRESSION: 1. Chest pain, suggestive of angina. 2. Diabetes mellitus. 3. Hypertension. 4. History of peripheral vascular disease. 5. Chronic renal insufficiency. 6. Morbid obesity. This patient presents with chest pain, suggestive of angina. The patient has a long history of renal insufficiency. The patient underwent a Cardiolite stress test, which did not reveal evidence of significant ischemia. I discussed the options with this patient of undergoing further evaluation including a cardiac catheterization. The patient is hesitant to proceed. I will add Ranexa to the patient's medical regimen. I will try to obtain records from Dr. Roy's previous evaluation. If the patient becomes agreeable, I will proceed with an invasive evaluation. Job ID: [id number] MTDD
[2020-11-25] MEDS ORDERED: Labetalol HCl 100 MG/20 ML VIAL SLOW IVP PRN (15:18)
[2020-11-25] MEDS ORDERED: NIFEdipine XL 30 MG TAB PO SCH (15:45)
[2020-11-25] MEDS: Ezetimibe 10 MG TAB PO SCH (19:55)
[2020-11-25] MEDS: Atorvastatin Calcium 20 MG TAB PO SCH (19:55)
[2020-11-25] MEDS: Allopurinol 300 MG TAB PO SCH (19:56)
[2020-11-25] MEDS: Enoxaparin Sodium 100 MG/ML SYRINGE SC SCH (19:57)
[2020-11-25] MEDS: hydrALAZINE 20 MG/ML VIAL SLOW IVP PRN (22:29)
[2020-11-26] MEDS: Sodium Chloride 0.9% 1,000 ML IV SCH (01:19)
[2020-11-26 04:55] LABS: Anion Gap 16 mmol/L (10-20); BUN (Urea Nitrogen) 28 mg/dL (9.8-20.1); Calc. Creatinine Clearance 42 mL/min (70-130); Calcium 8.4 mg/dL (7.8-10.44); Carbon Dioxide 19 mmol/L (23-31); Chloride 108 mmol/L (98-107); Glucose 96 mg/dL (80-115); Potassium 4.2 mmol/L (3.5-5.1); Sodium 139 mmol/L (136-145)
[2020-11-26 07:51] LABS: Eosinophils 2 % (0-10); Hemoglobin 12.5 g/dL (12.0-16.0); Large Platelets SLIGHT; Lymphocytes 16 % (21-51); MDiff Complete? YES; Mean Corpuscular HGB CONC 33.2 g/dL (32.0-36.0); Mean Corpuscular Volume 87.1 fL (78.0-98.0); Mean Platelet Volume 9.6 fL (7.4-10.4); Monocytes 5 % (0-10); Neutrophil 71 % (42-75); Platelet Count 168 thou/uL (130-400); Platelet Morphology Comment Appears Adequate; RBC Distribution Width 12.8 % (11.5-14.5); RBC Morphology Normal; Reactive Lymphocytes 6 % (0-10); White Blood Cell (WBC) Count 8.1 thou/uL (4.8-10.8)
[2020-11-26] MEDS: Clopidogrel Bisulfate 75 MG TAB PO SCH (08:19)
[2020-11-26] MEDS: Aspirin 81 mg Enteric Coated Tablet PO SCH (08:19)
[2020-11-26] MEDS: Carvedilol 6.25 MG TAB PO SCH (08:19)
[2020-11-26] MEDS: Gabapentin 300 MG CAP PO SCH ×2 (08:19→22:25)
[2020-11-26] MEDS: Enoxaparin Sodium 100 MG/ML SYRINGE SC SCH (08:20)
[2020-11-26] MEDS: Insulin Glargine 20 UNITS in Pre-Filled Syringe SC SCH ×2 (08:20→22:36)
[2020-11-26] MEDS ORDERED: NIFEdipine XL 30 MG TAB PO SCH ×2 (09:00→17:45)
[2020-11-26] MEDS ORDERED: Carvedilol 6.25 MG TAB PO SCH (09:15)
--- NOTE | 2020-11-26 09:23 | PDOC.HOSPP ---
- Subjective Encounter Date: 11/26/20 Encounter Time: 09:23 Subjective: seen on follow up for chest pain, cardiology saw patient and started ranexa, aidan was reportedly hesitant to have heart cath due to renal issues. today, patient sleeping but rousable, denies any further chest pain or shortness of breath, reports that ranexa appears to help. reviewed patinet with telemetry moniotor tech, rare PVCs, no other obvious arrhythmias - Objective Vital Signs & Weight: Vital Signs (12 hours) Temp Pulse Resp BP BP Pulse Ox 11/26/20 09:03 187/88 H 11/26/20 08:20 74 11/26/20 07:55 98.0 F 74 16 195/91 H 97 11/26/20 03:30 98.7 F 80 18 151/68 H 98 11/26/20 00:07 72 137/66 11/25/20 22:29 79 11/25/20 22:05 190/87 H Weight Admit Weight 224 lb Weight 229 lb I&O: 11/25/20 11/26/20 11/27/20 06:59 06:59 06:59 Intake Total 240 1400 Output Total 1200 Balance -960 1400 Result Diagrams: 11/26/20 07:09 11/26/20 04:11 Additional Labs: Accuchecks 11/26/20 11/26/20 11/25/20 07:42 03:51 23:52 POC Glucose 139 H 68 L 117 H 11/25/20 11/25/20 11/25/20 20:06 16:48 12:12 POC Glucose 328 H 363 H 185 H 11/25/20 10:12 POC Glucose 149 H Hospitalist ROS - Medication Medications: Active Medications Generic Name Dose Route Start Last Admin Trade Name Freq PRN Reason Stop Dose Admin Acetaminophen 650 mg 11/23/20 15:26 11/24/20 21:20 Acetaminophen 325 Mg Tab PO 650 mg Q6H PRN Administration Fever/Mild Pain Allopurinol 150 mg 11/23/20 21:00 11/25/20 19:56 Allopurinol 300 Mg Tab PO 150 mg QPM RED Administration Aspirin 81 mg 11/24/20 09:00 11/26/20 08:19 Aspirin 81 Mg Enteric Coated Tablet PO 81 mg QAM RED Administration Atorvastatin Calcium 20 mg 11/23/20 21:00 11/25/20 19:55 Atorvastatin Calcium 20 Mg Tab PO 20 mg HS RED Administration Carvedilol 12.5 mg 11/26/20 09:15 11/26/20 09:12 Carvedilol 6.25 Mg Tab PO 11/26/20 12:00 12.5 mg NOW RED Administration Clopidogrel Bisulfate 75 mg 11/24/20 09:00 11/26/20 08:19 Clopidogrel Bisulfate 75 Mg Tab PO 75 mg DAILY RED Administration Ezetimibe 10 mg 11/23/20 21:00 11/25/20 19:55 Ezetimibe 10 Mg Tab PO 10 mg QPM RED Administration Gabapentin 300 mg 11/25/20 09:00 11/26/20 08:19 Gabapentin 300 Mg Cap PO 300 mg BID RED Administration Hydralazine HCl 10 mg 11/23/20 15:25 11/25/20 22:29 Hydralazine 20 Mg/Ml Vial SLOW IVP 10 mg Q4H PRN Administration SBP Greater Than 180 Insulin Glargine 20 units/ 0.2 mls @ 0 mls/hr 11/23/20 21:00 11/25/20 20:08 Miscellaneous Medication SC 0.2 mls HS RED Administration Insulin Glargine 20 units/ 0.2 mls @ 0 mls/hr 11/24/20 09:00 11/26/20 08:20 Miscellaneous Medication SC 0.2 mls QAM RED Administration Insulin Human Lispro 0 units 11/23/20 13:14 11/25/20 16:51 Humalog 300 Units/3 Ml Vial SC 10 unit .MODERATE SLIDING SC PRN Administration Moderate Correctional Scale Insulin Human Lispro 0 units 11/23/20 13:14 11/23/20 21:23 Humalog 300 Units/3 Ml Vial SC 3 unit .BEDTIME SLIDING SC PRN Administration Bedtime Correctional Scale Isosorbide Mononitrate 90 mg 11/24/20 09:00 11/26/20 08:19 Isosorbide Mononitrate Er 60 Mg Tab PO 90 mg QAM RED Administration Nifedipine 30 mg 11/26/20 09:00 11/26/20 08:20 Nifedipine Xl 30 Mg Tab PO 30 mg DAILY RED Administration Nitroglycerin 0.4 mg 11/23/20 13:55 11/25/20 09:40 Nitroglycerin 0.4 Mg Tab (25 Tab Bottle) SL 1 tab Q5MIN PRN Administration Chest Pain Ondansetron HCl 4 mg 11/24/20 01:15 11/24/20 01:24 Ondansetron Pf 4 Mg/2 Ml Vial IVP 4 mg Q6H PRN Administration Nausea/Vomiting Pantoprazole Sodium 40 mg 11/24/20 09:00 11/26/20 08:20 Pantoprazole 40 Mg Tab PO 40 mg QAM RED Administration Ranolazine 500 mg 11/25/20 21:00 11/26/20 08:19 Ranolazine 500 Mg Tab PO 500 mg BID RED Administration - Exam General Appearance: NAD, awake alert Eye: PERRL, anicteric sclera ENT: normocephalic atraumatic, no oropharyngeal lesions, moist mucosa Neck: supple, symmetric, no JVD, no thyromegaly, no lymphadenopathy, no carotid bruit Heart: RRR, no murmur, no gallops, no rubs, normal peripheral pulses Respiratory: CTAB, no wheezes, no rales, no ronchi, normal chest expansion, no tachypnea, normal percussion Gastrointestinal: soft, non-tender, non-distended, normal bowel sounds, no palpable masses, no hepatomegaly, no splenomegaly, no bruit Extremities: no cyanosis, no clubbing, no edema Skin: normal turgor, no lesions, no rashes Neurological: cranial nerve grossly intact, normal sensation to touch, no weakness, no focal deficits, no new deficit Musculoskeletal: normal tone, normal strength, no muscle wasting Psychiatric: normal affect, normal behavior, A&O x 3 Hosp A/P - Plan chest pain chronic diastolic CHF - continue CAD protective medication with asa + plavix beta vane and statin - also on imdur - stress test showed on EF of 39%, with global hypokenisia - echo this admisssion EF 55%, diastolic dysfunction, mild MR - cardiology consulted, C deferred due to renal function, attempting ranexa trial - stable troponin DM - continue SS+ CC htn continue home meds, will monitor hld continue statin corrina - unclear base, will continue to hydrate
[2020-11-26] MEDS: HumaLOG 300 UNITS/3 ML VIAL SC PRN ×2 (12:30→17:06)
[2020-11-26] MEDS: hydrALAZINE 20 MG/ML VIAL SLOW IVP PRN (17:02)
[2020-11-26] MEDS: Allopurinol 300 MG TAB PO SCH (22:25)
[2020-11-26] MEDS: Ezetimibe 10 MG TAB PO SCH (22:27)
[2020-11-26] MEDS: Carvedilol 25 MG TAB PO SCH (22:27)
[2020-11-26] MEDS: Atorvastatin Calcium 20 MG TAB PO SCH (22:27)
[2020-11-27] MEDS: HumaLOG 300 UNITS/3 ML VIAL SC PRN ×2 (04:52→11:45)
[2020-11-27 04:57] VITALS: BMI 39.3
[2020-11-27 05:09] LABS: #Eosinphils 0.1 thou/uL (0.0-0.7); #Lymphocytes 1.8 thou/uL (1.20-3.40); #Monocytes 0.4 thou/uL (0.11-0.59); #Neutrophils 4.5 thou/uL (1.40-6.50); %Basophils 0.1 % (0.0-1.0); %Eosinophils 1.6 % (0.0-10.0); %Lymphocytes 26.2 % (21.0-51.0); %Monocytes 5.8 % (0.0-10.0); %Neutrophils 66.3 % (42.0-75.0); Mean Corpuscular HGB CONC 34.7 g/dL (32.0-36.0); Mean Corpuscular Hemoglobin 30.3 pg (27.0-31.0); Mean Corpuscular Volume 87.3 fL (78.0-98.0); Mean Platelet Volume 9.8 fL (7.4-10.4); Platelet Count 153 thou/uL (130-400); RBC Distribution Width 12.7 % (11.5-14.5); Red Blood Cell (RBC) Count 3.97 mill/uL (4.20-5.40); White Blood Cell (WBC) Count 6.8 thou/uL (4.8-10.8)
[2020-11-27 05:32] LABS: Anion Gap 13 mmol/L (10-20); BUN (Urea Nitrogen) 27 mg/dL (9.8-20.1); Calc. Creatinine Clearance 44 mL/min (70-130); Calcium 8.7 mg/dL (7.8-10.44); Carbon Dioxide 23 mmol/L (23-31); Chloride 106 mmol/L (98-107); Glucose 211 mg/dL (80-115); Magnesium 1.6 mg/dL (1.6-2.6); Potassium 4.4 mmol/L (3.5-5.1); Sodium 138 mmol/L (136-145)
[2020-11-27] MEDS: Insulin Glargine 20 UNITS in Pre-Filled Syringe SC SCH ×2 (08:36→21:45)
[2020-11-27] MEDS: Gabapentin 300 MG CAP PO SCH ×2 (08:37→21:44)
[2020-11-27] MEDS: Carvedilol 25 MG TAB PO SCH ×2 (08:37→21:43)
[2020-11-27] MEDS: Aspirin 81 mg Enteric Coated Tablet PO SCH (08:37)
[2020-11-27] MEDS: Clopidogrel Bisulfate 75 MG TAB PO SCH (08:38)
[2020-11-27] MEDS ORDERED: cloNIDine 0.1 MG TAB PO SCH ×2 (09:00→10:30)
[2020-11-27] MEDS ORDERED: NIFEdipine XL 30 MG TAB PO SCH (09:00)
--- NOTE | 2020-11-27 11:44 | PDOC.HOSPP ---
- Subjective Encounter Date: 11/27/20 Encounter Time: 11:43 Subjective: patient in bed, no chest pain overnight, hopefully home today if cleared by cardiology on ranexa. no SOB. - Objective Vital Signs & Weight: Vital Signs (12 hours) Temp Pulse Resp BP BP BP Pulse Ox 11/27/20 08:38 190/87 H 11/27/20 08:25 98.3 F 81 16 151/73 H 95 11/27/20 04:00 98.2 F 71 18 185/94 H 97 11/27/20 00:00 98.0 F 70 18 148/74 H 97 Weight Admit Weight 224 lb Weight 236 lb 4.8 oz I&O: 11/26/20 11/27/20 11/28/20 06:59 06:59 06:59 Intake Total 1400 300 Balance 1400 300 Result Diagrams: 11/27/20 04:39 11/27/20 04:39 Additional Labs: Accuchecks 11/27/20 11/27/20 11/26/20 08:25 03:56 23:47 POC Glucose 168 H 196 H 166 H 11/26/20 11/26/20 11/26/20 20:13 16:44 12:26 POC Glucose 178 H 236 H 295 H 11/23/20 13:18 POC Glucose 337 H Hospitalist ROS - Medication Medications: Active Medications Generic Name Dose Route Start Last Admin Trade Name Freq PRN Reason Stop Dose Admin Acetaminophen 650 mg 11/23/20 15:26 11/24/20 21:20 Acetaminophen 325 Mg Tab PO 650 mg Q6H PRN Administration Fever/Mild Pain Allopurinol 150 mg 11/23/20 21:00 11/26/20 22:25 Allopurinol 300 Mg Tab PO 150 mg QPM RED Administration Aspirin 81 mg 11/24/20 09:00 11/27/20 08:37 Aspirin 81 Mg Enteric Coated Tablet PO 81 mg QAM RED Administration Atorvastatin Calcium 20 mg 11/23/20 21:00 11/26/20 22:27 Atorvastatin Calcium 20 Mg Tab PO 20 mg HS RED Administration Carvedilol 25 mg 11/26/20 21:00 11/27/20 08:37 Carvedilol 25 Mg Tab PO 25 mg BID RED Administration Clopidogrel Bisulfate 75 mg 11/24/20 09:00 11/27/20 08:38 Clopidogrel Bisulfate 75 Mg Tab PO 75 mg DAILY RED Administration Ezetimibe 10 mg 11/23/20 21:00 11/26/20 22:27 Ezetimibe 10 Mg Tab PO 10 mg QPM RED Administration Gabapentin 300 mg 11/25/20 09:00 11/27/20 08:37 Gabapentin 300 Mg Cap PO 300 mg BID RED Administration Hydralazine HCl 10 mg 11/23/20 15:25 11/26/20 17:02 Hydralazine 20 Mg/Ml Vial SLOW IVP 10 mg Q4H PRN Administration SBP Greater Than 180 Insulin Glargine 20 units/ 0.2 mls @ 0 mls/hr 11/23/20 21:00 11/26/20 22:36 Miscellaneous Medication SC 0.2 mls HS RED Administration Insulin Glargine 20 units/ 0.2 mls @ 0 mls/hr 11/24/20 09:00 11/27/20 08:36 Miscellaneous Medication SC 0.2 mls QAM RED Administration Insulin Human Lispro 0 units 11/23/20 13:14 11/27/20 04:52 Humalog 300 Units/3 Ml Vial SC 2 unit .MODERATE SLIDING SC PRN Administration Moderate Correctional Scale Insulin Human Lispro 0 units 11/23/20 13:14 11/23/20 21:23 Humalog 300 Units/3 Ml Vial SC 3 unit .BEDTIME SLIDING SC PRN Administration Bedtime Correctional Scale Isosorbide Mononitrate 90 mg 11/24/20 09:00 11/27/20 08:40 Isosorbide Mononitrate Er 60 Mg Tab PO 90 mg QAM RED Administration Labetalol HCl 20 mg 11/25/20 15:18 11/26/20 19:31 Labetalol Hcl 100 Mg/20 Ml Vial SLOW IVP 4 ml Q4H PRN Administration Hypertension SBP>170 Nitroglycerin 0.4 mg 11/23/20 13:55 11/25/20 09:40 Nitroglycerin 0.4 Mg Tab (25 Tab Bottle) SL 1 tab Q5MIN PRN Administration Chest Pain Ondansetron HCl 4 mg 11/24/20 01:15 11/24/20 01:24 Ondansetron Pf 4 Mg/2 Ml Vial IVP 4 mg Q6H PRN Administration Nausea/Vomiting Pantoprazole Sodium 40 mg 11/24/20 09:00 11/27/20 08:38 Pantoprazole 40 Mg Tab PO 40 mg QAM RED Administration Ranolazine 500 mg 11/25/20 21:00 11/27/20 08:42 Ranolazine 500 Mg Tab PO 500 mg BID RED Administration Sodium Chloride 10 ml 11/23/20 13:55 11/27/20 08:40 Flush - Normal Saline 10 Ml Syringe IVF 10 ml PRN PRN Administration Saline Flush - Exam General Appearance: NAD, awake alert Eye: PERRL, anicteric sclera ENT: normocephalic atraumatic, no oropharyngeal lesions, moist mucosa Neck: supple, symmetric, no JVD, no thyromegaly, no lymphadenopathy, no carotid bruit Heart: RRR, no murmur, no gallops, no rubs, normal peripheral pulses Respiratory: CTAB, no wheezes, no rales, no ronchi, normal chest expansion, no tachypnea, normal percussion Gastrointestinal: soft, non-tender, non-distended, normal bowel sounds, no palpable masses, no hepatomegaly, no splenomegaly, no bruit Extremities: no cyanosis, no clubbing, no edema Skin: normal turgor, no lesions, no rashes Neurological: cranial nerve grossly intact, normal sensation to touch, no weakness, no focal deficits, no new deficit Musculoskeletal: normal tone, normal strength, no muscle wasting Psychiatric: normal affect, normal behavior, A&O x 3 Hosp A/P (1) Chest pain Code(s): R07.9 - CHEST PAIN, UNSPECIFIED Status: Acute (2) Diabetes mellitus Code(s): E11.9 - TYPE 2 DIABETES MELLITUS WITHOUT COMPLICATIONS Status: Acute - Plan chest pain chronic diastolic CHF - continue CAD protective medication with asa + plavix beta vane and statin - also on imdur - stress test showed on EF of 39%, with global hypokenisia - echo this admisssion EF 55%, diastolic dysfunction, mild MR - cardiology consulted, C deferred due to renal function, attempting ranexa trial - stable troponin DM - continue SS+ CC htn continue home meds, will monitor hld continue statin corrina - unclear base, will continue to hydrate hopefully home today
[2020-11-27] MEDS ORDERED: Sodium Chloride 0.9% 10 ML ONE (21:18)
[2020-11-27] MEDS: cloNIDine 0.2 MG TAB PO SCH (21:43)
[2020-11-27] MEDS: NIFEdipine XL 60 MG TAB PO SCH (21:44)
[2020-11-27] MEDS: Atorvastatin Calcium 20 MG TAB PO SCH (21:45)
[2020-11-28 04:37] LABS: #Basophils 0.1 thou/uL (0.0-0.2); #Eosinphils 0.1 thou/uL (0.0-0.7); #Lymphocytes 2.2 thou/uL (1.20-3.40); #Monocytes 0.5 thou/uL (0.11-0.59); #Neutrophils 3.8 thou/uL (1.40-6.50); %Eosinophils 1.8 % (0.0-10.0); %Lymphocytes 33.4 % (21.0-51.0); %Monocytes 7.4 % (0.0-10.0); %Neutrophils 56.5 % (42.0-75.0); Mean Corpuscular HGB CONC 33.6 g/dL (32.0-36.0); Mean Corpuscular Hemoglobin 29.2 pg (27.0-31.0); Platelet Count 157 thou/uL (130-400); RBC Distribution Width 12.7 % (11.5-14.5); Red Blood Cell (RBC) Count 4.09 mill/uL (4.20-5.40); White Blood Cell (WBC) Count 6.7 thou/uL (4.8-10.8)
[2020-11-28 04:57] LABS: Anion Gap 12 mmol/L (10-20); BUN (Urea Nitrogen) 24 mg/dL (9.8-20.1); Calc. Creatinine Clearance 50 mL/min (70-130); Calcium 8.8 mg/dL (7.8-10.44); Carbon Dioxide 23 mmol/L (23-31); Chloride 106 mmol/L (98-107); Glucose 125 mg/dL (80-115); Magnesium 1.7 mg/dL (1.6-2.6); Potassium 4.3 mmol/L (3.5-5.1); Sodium 137 mmol/L (136-145)
[2020-11-28] MEDS: Ezetimibe 10 MG TAB PO SCH (09:29)
[2020-11-28] MEDS: Allopurinol 300 MG TAB PO SCH (09:29)
[2020-11-28] MEDS: Gabapentin 300 MG CAP PO SCH (09:33)
[2020-11-28] MEDS: NIFEdipine XL 60 MG TAB PO SCH (09:34)
[2020-11-28] MEDS: Carvedilol 25 MG TAB PO SCH (09:35)
[2020-11-28] MEDS: Aspirin 81 mg Enteric Coated Tablet PO SCH (09:35)
[2020-11-28] MEDS: cloNIDine 0.2 MG TAB PO SCH (09:37)
[2020-11-28] MEDS: Insulin Glargine 20 UNITS in Pre-Filled Syringe SC SCH (09:37)
[2020-11-28] MEDS: Clopidogrel Bisulfate 75 MG TAB PO SCH (09:38)
--- NOTE | 2020-11-28 10:38 | PDOC.DS.DS ---
Provider - Provider Date of Admission: 11/23/20 12:19 Admitting Provider: Edgar Butts MD Primary Care Physician: Ale Horton MD Course - Hospital Course Resuscitation Status: 11/23/20 13:55 Resuscitation Status Routine Co-Sign Provider: Resuscitation Status: FULL: Full Resuscitation - Labs Lab Results: 11/28/20 04:21 11/28/20 04:21 Abnormal Lab Results - Last 48 hrs 11/27/20 04:39: BUN 27 H, Creatinine 2.12 H 11/27/20 04:39: RBC 3.97 L, Hct 34.7 L 11/28/20 04:21: BUN 24 H, Creatinine 1.86 H 11/28/20 04:21: RBC 4.09 L, Hct 35.6 L - Physical Exam Vitals: Vital Signs (12 hours) Temp Pulse Resp BP BP Pulse Ox 11/28/20 09:37 171/77 H 11/28/20 07:15 98.5 F 67 16 132/71 95 11/28/20 04:35 97.9 F 63 18 121/74 97 Weight Admit Weight 224 lb Weight 229 lb Physical Exam: The patient was seen and examined on the day of discharge. Problem - Problem (1) Chest pain Code(s): R07.9 - CHEST PAIN, UNSPECIFIED Status: Acute (2) Diabetes mellitus Code(s): E11.9 - TYPE 2 DIABETES MELLITUS WITHOUT COMPLICATIONS Status: Acute Plan - Discharge Medications Prescriptions: NIFEdipine [Procardia XL] 60 mg PO BID #60 tab Ranolazine [Ranexa] 500 mg PO BID #60 tab Home Medications: Medication Instructions Recorded Confirmed Type Aspirin [Aspirin EC] 81 mg PO QAM 01/27/15 11/23/20 History Cholecalciferol (Vitamin D3) 2,000 unit PO QAM 01/27/15 11/23/20 History [Vitamin D3] Ezetimibe [Zetia] 10 mg PO QPM 01/27/15 11/23/20 History Gabapentin 1 cap PO BID 01/27/15 11/25/20 History Pantoprazole [Protonix] 40 mg PO QAM 01/27/15 11/23/20 History Simvastatin 40 mg PO HS 01/27/15 11/23/20 History Carvedilol [Coreg] 12.5 mg PO BID 08/14/17 11/23/20 History Clopidogrel Bisulfate [Plavix] 75 mg PO DAILY 08/14/17 11/23/20 History HumuLIN 70/30 [HumuLIN 70/30 Vial] 30 unit SC BID-AC 08/14/17 11/23/20 History Isosorbide Mononitrate [Imdur] 90 mg PO QAM 08/14/17 11/23/20 History glipiZIDE [Glucotrol XL] 5 mg PO DAILY 08/14/17 11/23/20 History Allopurinol 150 mg PO QPM 10/01/17 11/23/20 History Anastrozole [Arimidex] 1 mg PO DAILY 01/07/19 11/23/20 History Furosemide [Lasix] 40 mg PO DAILY 01/07/19 11/23/20 History Insulin Detemir [Levemir] 30 unit SC HS 01/07/19 11/23/20 History cloNIDine HCl 0.2 mg PO TID 01/07/19 11/23/20 History hydrALAZINE HCl 100 mg PO TID 01/07/19 11/23/20 History Nystatin/Triamcin 15 gm TP BID PRN 11/23/20 11/23/20 History [Nystatin-Triamcinolone Ointm] NIFEdipine [Procardia XL] 60 mg PO BID #60 tab 11/28/20 Rx Ranolazine [Ranexa] 500 mg PO BID #60 tab 11/28/20 Rx Allergies: codeine Allergy (Intermediate, Verified 11/23/20 17:37) itching, rash Penicillins Allergy (Intermediate, Verified 11/23/20 17:37) rash, itching per e.r. pt. summary report - Discharge Instructions Activity:: Activity as Tolerated Nourishment:: Diabetic Diet, Heart Healthy Diet - Follow up Plan Referrals: Matty Roy MD [MD Not on Staff] - Ale Horton MD [Primary Care Provider] - Disposition: HOME
[2020-11-28] MEDS: HumaLOG 300 UNITS/3 ML VIAL SC PRN (11:55)
[2020-11-28 13:30] VITALS: BP 132/72; TEMP 99
--- NOTE | 2020-12-01 12:10 | PQF ---
CLINICAL DOCUMENTATION CLARIFICATION FORM: Dear : Michael Arora MD Date / Time: 12/01/2020 Please exercise your independent, professional judgment in responding to the clarification form. Clinical indicators are provided on the bottom of this form for your review Please check appropriate box(es) to clarify if the following diagnosis has been ruled in our ruled out: [ ] Ruled in NSTEMI [ ] Continue to treat [ ] Resolved [ ] Ruled out NSTEMI [ ] Improving [ ] Cannot rule out diagnosis [ ] Other diagnosis (Please specify if any) [ ] Unable to determine In addition, please specify: Present on Admission (POA): [ ] Yes [ ] No [ ] Unable to determine Physician Signature: Date/Time: For continuity of documentation, please document condition throughout progress notes and discharge summary. Thank You. To be completed by CDI/Coding staff for physician review: Present Clinical Indicators - Signs / Symptoms / Labs Results and Location in Medical Record [x] NSTEMI ED provider report on 11/23 [x] We will admit her for an NSTEMI as well as hyperglycemia ED provider report on 11/23 [x] Question if troponin is elevated in setting of CKD versus NSTEMI H&P on 11/23 [x] Non specific change in ST segment in anterolateral leads Echo on 11/24 [x] Stress test showed on EF of 39% with global hypokenisia Hospitalist progress note son 11/24 Present Risk Factors Results and Location in Medical Record [x] hypertension H&P on 11/23 [x] Chest pain H&P on 11/23 Present Treatments Results and Location in Medical Record [x] Cardiology consult Consult on 11/25 [x] Nitroglycerin 0.4mg Medication from 11/23 to 11/28 [x] Heparin 5,000 units Medication from 11/23 to 11/25 [ ] CDS/[employer] Signature: JJ1 Phone #: Date/Time: 12/01/2020 This is a permanent part of the Medical Record [facility]
--- NOTE | 2020-12-02 16:35 | EKG ---
Test Reason : Blood Pressure : / mmHG Vent. Rate : 087 BPM Atrial Rate : 087 BPM P-R Int : 154 ms QRS Dur : 096 ms QT Int : 414 ms P-R-T Axes : 037 -26 145 degrees QTc Int : 498 ms Normal sinus rhythm Possible Left atrial enlargement Left ventricular hypertrophy T wave abnormality, consider lateral ischemia Prolonged QT Abnormal ECG New T wave inversion Confirmed by ARINA Jones, HENRY ([id number]), editor publications [id number] [id number] ([id number]) on 12/02/2020 4:35:10 PM Referred By: Confirmed By:HENRY SANTA M.D.
--- NOTE | 2020-12-05 15:38 | EKG ---
Test Reason : Blood Pressure : / mmHG Vent. Rate : 060 BPM Atrial Rate : 060 BPM P-R Int : 188 ms QRS Dur : 112 ms QT Int : 528 ms P-R-T Axes : 050 -24 187 degrees QTc Int : 528 ms Normal sinus rhythm Left ventricular hypertrophy with repolarization abnormality Prolonged QT Abnormal ECG When compared with ECG of 24-NOV-2020 00:20, Minimal criteria for Septal infarct are no longer Present T wave inversion more evident in Anterolateral leads Confirmed by LYUDMILA DOWNING, SPura ([id number]) on 12/05/2020 3:38:23 PM Referred By: MILAGRO Confirmed By:DR. Derian COREAS MD
== END 2020-11-28 14:32 | disposition home or self-care (01) | DRG 313 ==
LOC: ERS 08:59 → ERHOLD 12:19 → 2NO 14:44
PROVIDERS: ADMIT Internal Medicine; ATTEND Internal Medicine
DX: R07.9 Chest pain, unspecified (principal); N17.9 Acute kidney failure, unspecified; I13.0 Hypertensive heart and chronic kidney disease with heart failure and stage 1 through stage 4 chronic kidney disease, or unspecified chronic kidney disease; I50.32 Chronic diastolic (congestive) heart failure; E78.5 Hyperlipidemia, unspecified; E11.65 Type 2 diabetes mellitus with hyperglycemia; K21.9 Gastro-esophageal reflux disease without esophagitis; N18.9 Chronic kidney disease, unspecified; E11.22 Type 2 diabetes mellitus with diabetic chronic kidney disease; E66.01 Morbid (severe) obesity due to excess calories; Z20.828 Contact with and (suspected) exposure to other viral communicable diseases; Z90.49 Acquired absence of other specified parts of digestive tract; Z86.73 Personal history of transient ischemic attack (TIA), and cerebral infarction without residual deficits; Z68.38 Body mass index [BMI] 38.0-38.9, adult; Z90.710 Acquired absence of both cervix and uterus; Z88.6 Allergy status to analgesic agent; Z88.0 Allergy status to penicillin; Z88.8 Allergy status to other drugs, medicaments and biological substances; Z79.899 Other long term (current) drug therapy; Z79.82 Long term (current) use of aspirin
CPT/HCPCS: 36415; 36416; 71045; 78452; 80048; 80053; 80061; 82010; 82553; 83690; 83735; 84443; 84484; 85025; 87635; 90471; 90732; 93005; 93010; 93017; 93306; 94760; 96374; 96375; A9500; G0009; J0360; J1644; J1650; J1815; J2270; J2405; J2785; U0003

== ENCOUNTER 2021-04-25 15:05 | Emergency (ER) | payer MEDICARE ==
[2021-04-25 16:55] LABS: #Basophils 0.1 thou/uL (0.0-0.2); #Lymphocytes 2.9 thou/uL (1.20-3.40); #Monocytes 0.9 thou/uL (0.11-0.59); #Neutrophils 8.3 thou/uL (1.40-6.50); %Basophils 0.4 % (0.0-1.0); %Eosinophils 0.1 % (0.0-10.0); %Lymphocytes 24.1 % (21.0-51.0); %Monocytes 7.4 % (0.0-10.0); Hemoglobin 13.7 g/dL (12.0-16.0); Mean Corpuscular HGB CONC 33.5 g/dL (32.0-36.0); Mean Corpuscular Hemoglobin 28.3 pg (27.0-31.0); Mean Corpuscular Volume 84.6 fL (78.0-98.0); Platelet Count 206 thou/uL (130-400); RBC Distribution Width 12.9 % (11.5-14.5); Red Blood Cell (RBC) Count 4.83 mill/uL (4.20-5.40); White Blood Cell (WBC) Count 12.2 thou/uL (4.8-10.8)
[2021-04-25 17:09] LABS: ALT (SGPT) 23 U/L (8-55); AST (SGOT) 21 U/L (5-34); Albumin 3.5 g/dL (3.4-4.8); Alkaline Phosphatase 110 U/L (40-110); Anion Gap 17 mmol/L (10-20); BUN (Urea Nitrogen) 25 mg/dL (9.8-20.1); Bilirubin, Total 0.2 mg/dL (0.2-1.2); Calc. Creatinine Clearance 0 mL/min (70-130); Calcium 9.5 mg/dL (7.8-10.44); Carbon Dioxide 19 mmol/L (23-31); Chloride 108 mmol/L (98-107); Globulin 3.9 g/dL (2.4-3.5); Glucose 309 mg/dL (80-115); Lipase 105 U/L (8-78); Potassium 4.2 mmol/L (3.5-5.1); Protein, Total 7.4 g/dL (5.8-8.1); Sodium 140 mmol/L (136-145)
[2021-04-25 17:50] LABS: CKMB 3.1 ng/mL (0-6.6)
== END 2021-04-25 18:53 | disposition home or self-care (01) ==
LOC: ERS 15:05
DX: R50.9 Fever, unspecified (principal); R79.89 Other specified abnormal findings of blood chemistry; I12.9 Hypertensive chronic kidney disease with stage 1 through stage 4 chronic kidney disease, or unspecified chronic kidney disease; N18.9 Chronic kidney disease, unspecified; E11.22 Type 2 diabetes mellitus with diabetic chronic kidney disease; Z86.16 Personal history of COVID-19; E78.5 Hyperlipidemia, unspecified; E78.00 Pure hypercholesterolemia, unspecified; Z79.82 Long term (current) use of aspirin; Z79.899 Other long term (current) drug therapy
CPT/HCPCS: 36415; 80053; 82553; 83690; 84484; 85025; 93005

== ENCOUNTER 2021-08-15 15:25 | Outpatient (CLI) | payer MEDICARE | END 2021-08-15 15:26 | disposition home or self-care (01) | LOC: ULT 15:25 | PROVIDERS: ATTEND Podiatrist | DX: M79.604 Pain in right leg (principal); M79.671 Pain in right foot ==

== ENCOUNTER 2021-09-10 11:34 | Emergency (ER) | payer MEDICARE ==
[2021-09-10 12:18] LABS: #Basophils 0.1 thou/uL (0.0-0.2); #Eosinphils 0.1 thou/uL (0.0-0.7); #Lymphocytes 1.7 thou/uL (1.20-3.40); #Monocytes 0.5 thou/uL (0.11-0.59); #Neutrophils 6.8 thou/uL (1.40-6.50); %Basophils 0.6 % (0.0-1.0); %Lymphocytes 18.4 % (21.0-51.0); %Monocytes 4.9 % (0.0-10.0); %Neutrophils 75.1 % (42.0-75.0); Hemoglobin 6.4 g/dL (12.0-16.0); Mean Corpuscular HGB CONC 31.9 g/dL (32.0-36.0); Mean Corpuscular Hemoglobin 23.9 pg (27.0-31.0); Mean Corpuscular Volume 74.9 fL (78.0-98.0); Mean Platelet Volume 8.8 fL (7.4-10.4); Platelet Count 238 thou/uL (130-400); RBC Distribution Width 13.9 % (11.5-14.5); Red Blood Cell (RBC) Count 2.69 mill/uL (4.20-5.40); White Blood Cell (WBC) Count 9.1 thou/uL (4.8-10.8)
[2021-09-10 12:31] LABS: ALT (SGPT) 11 U/L (8-55); AST (SGOT) 11 U/L (5-34); Albumin 3.1 g/dL (3.4-4.8); Alkaline Phosphatase 93 U/L (40-110); Anion Gap 15 mmol/L (10-20); BUN (Urea Nitrogen) 37 mg/dL (9.8-20.1); Bilirubin, Total Less than 0.2 mg/dL (0.2-1.2); Calc. Creatinine Clearance 0 mL/min (70-130); Calcium 8.7 mg/dL (7.8-10.44); Carbon Dioxide 20 mmol/L (23-31); Chloride 106 mmol/L (98-107); Glucose 285 mg/dL (80-115); Potassium 4.4 mmol/L (3.5-5.1); Protein, Total 6.1 g/dL (5.8-8.1); Sodium 137 mmol/L (136-145)
[2021-09-10 12:33] LABS: Hypochromia SLIGHT = 6-15 cells (100X) (0-5/hpf); MDiff Complete? YES; Microcytosis SLIGHT = 6-15 cells (100X) (0-5/hpf); Platelet Morphology Comment Appears Adequate; Polychromasia SLIGHT = 2-3 cells (100X) (0-2/hpf)
[2021-09-10 14:26] LABS: Iron 57 ug/dL (50-170); Iron Binding Capacity, Total 385 mcg/dL (265-497)
== END 2021-09-10 17:05 | disposition home or self-care (01) ==
LOC: ERS 11:34
DX: D64.9 Anemia, unspecified (principal); E11.9 Type 2 diabetes mellitus without complications; E78.5 Hyperlipidemia, unspecified; E78.00 Pure hypercholesterolemia, unspecified; I10 Essential (primary) hypertension; Z79.82 Long term (current) use of aspirin; Z79.899 Other long term (current) drug therapy; Z79.02 Long term (current) use of antithrombotics/antiplatelets
CPT/HCPCS: 36430; 80053; 82728; 83540; 83550; 85025; 86850; 86900; 86901; 86920; P9016; 36415; 82274; 99284

== ENCOUNTER 2021-10-01 00:14 | Emergency (ER) | payer MEDICARE ==
[2021-10-01] MEDS ORDERED: HYDROcodone/Acetaminophen 10/325 mg Tablet ONE (01:00)
[2021-10-01] MEDS ORDERED: cloNIDine 0.1 MG TAB ONE (01:01)
[2021-10-01] MEDS ORDERED: hydrALAZINE 25 MG TAB ONE (01:01)
== END 2021-10-01 02:40 | disposition home or self-care (01) ==
LOC: ERS 00:14
DX: M79.662 Pain in left lower leg (principal); M79.661 Pain in right lower leg; E11.51 Type 2 diabetes mellitus with diabetic peripheral angiopathy without gangrene; E11.40 Type 2 diabetes mellitus with diabetic neuropathy, unspecified; E78.5 Hyperlipidemia, unspecified; E78.00 Pure hypercholesterolemia, unspecified; I10 Essential (primary) hypertension; D64.9 Anemia, unspecified
CPT/HCPCS: 99283

== ENCOUNTER 2021-10-04 18:39 | Inpatient (IN) | payer MEDICARE ==
[2021-10-04 20:27] LABS: Mean Corpuscular HGB CONC 32.1 g/dL (32.0-36.0); Mean Corpuscular Hemoglobin 24.3 pg (27.0-31.0); Mean Corpuscular Volume 75.6 fL (78.0-98.0); Mean Platelet Volume 9.7 fL (7.4-10.4); Platelet Count 235 thou/uL (130-400); RBC Distribution Width 14.6 % (11.5-14.5); Red Blood Cell (RBC) Count 4.11 mill/uL (4.20-5.40); White Blood Cell (WBC) Count 9.9 thou/uL (4.8-10.8)
[2021-10-04 20:35] LABS: PTT 28.1 sec (22.9-36.1); Prothrombin Time 13.6 sec (12.0-14.7)
[2021-10-04 20:40] LABS: #Basophils 0.1 thou/uL (0.0-0.2); #Lymphocytes 1.9 thou/uL (1.20-3.40); #Monocytes 0.7 thou/uL (0.11-0.59); #Neutrophils 7.2 thou/uL (1.40-6.50); %Basophils 0.5 % (0.0-1.0); %Eosinophils 0.4 % (0.0-10.0); %Monocytes 7.4 % (0.0-10.0); %Neutrophils 72.6 % (42.0-75.0)
[2021-10-04 20:43] LABS: D-Dimer Test 4.56 *mcg/mL (0.27-0.43)
[2021-10-04 20:45] LABS: ALT (SGPT) 13 U/L (8-55); AST (SGOT) 14 U/L (5-34); Albumin 3.2 g/dL (3.4-4.8); Alkaline Phosphatase 106 U/L (40-110); Anion Gap 14 mmol/L (10-20); BUN (Urea Nitrogen) 36 mg/dL (9.8-20.1); Bilirubin, Total 0.2 mg/dL (0.2-1.2); Calc. Creatinine Clearance 0 mL/min (70-130); Calcium 9.1 mg/dL (7.8-10.44); Carbon Dioxide 22 mmol/L (23-31); Chloride 108 mmol/L (98-107); Globulin 3.5 g/dL (2.4-3.5); Glucose 192 mg/dL (80-115); Potassium 4.3 mmol/L (3.5-5.1); Protein, Total 6.7 g/dL (5.8-8.1); Sodium 140 mmol/L (136-145)
[2021-10-04 21:04] LABS: CKMB 3.7 ng/mL (0-6.6)
[2021-10-04] MEDS ORDERED: Labetalol HCl 100 MG/20 ML VIAL ONE (21:18)
[2021-10-04] MEDS ORDERED: Haloperidol Lactate 5 MG/ML VIAL ONE (21:38)
[2021-10-04 23:01] LABS: Bilirubin Negative (Negative); Clarity Clear (Clear); Glucose, Urine (Dipstick) 500 mg/dL (Negative); Ketone, Urine Negative (Negative); Leukocyte Negative Leu/uL (Negative); Nitrite Negative (Negative); Protein, Urine (Dipstick) 600 mg/dL (Neg-Trace); Urobilinogen Normal mg/dL (Less than 2); pH, Urine 6.5 (5.0-9.0)
[2021-10-04 23:02] LABS: Blood, Urine 1+ (Negative); RBC/HPF 0-3 HPF (0-3)
[2021-10-04 23:06] LABS: Bacteria/HPF Rare-Few HPF (None Seen)
[2021-10-05] MEDS ORDERED: Lorazepam 2 MG/ML VIAL ONE (01:13)
[2021-10-05] MEDS ORDERED: Nitroglycerin 2% Ointment 1 INCH/1 GM Packet ONE (01:13)
[2021-10-05] MEDS ORDERED: hydrALAZINE 20 MG/ML VIAL ONE (01:13)
[2021-10-05] MEDS ORDERED: Furosemide 20 MG/2 ML VIAL ONE ×3 (01:13→07:38)
[2021-10-05 01:38] LABS: Troponin I 0.249 ng/mL (< 0.028)
[2021-10-05] MEDS ORDERED: Ondansetron PF 4 MG/2 ML Vial IVP PRN (02:54)
[2021-10-05] MEDS ORDERED: Acetaminophen 325 MG TAB PO PRN (02:54)
[2021-10-05] MEDS ORDERED: HumaLOG 300 UNITS/3 ML VIAL SC PRN (03:00)
[2021-10-05] MEDS ORDERED: Heparin 25,000 units/D5W 500 ML IVPB SCH ×2 (03:00)
[2021-10-05] MEDS ORDERED: Heparin 10,000 UNITS/ 10 ML VIAL SLOW IVP SCH ×2 (03:00)
[2021-10-05] MEDS ORDERED: Dextrose 50% Abboject 50 ML SYRINGE SLOW IVP PRN (03:00)
[2021-10-05] MEDS ORDERED: Dextrose 5% in Water 1,000 ML IV PRN (03:00)
[2021-10-05] MEDS ORDERED: hydrALAZINE 20 MG/ML VIAL SLOW IVP PRN (03:01)
[2021-10-05 04:35] LABS: Hemoglobin 9.2 g/dL (12.0-16.0); Mean Corpuscular HGB CONC 31.8 g/dL (32.0-36.0); Mean Corpuscular Hemoglobin 23.9 pg (27.0-31.0); Mean Corpuscular Volume 75.3 fL (78.0-98.0); Mean Platelet Volume 10.1 fL (7.4-10.4); Platelet Count 198 thou/uL (130-400); RBC Distribution Width 14.6 % (11.5-14.5); Red Blood Cell (RBC) Count 3.82 mill/uL (4.20-5.40); White Blood Cell (WBC) Count 9.6 thou/uL (4.8-10.8)
[2021-10-05 04:37] LABS: Anion Gap 13 mmol/L (10-20); BUN (Urea Nitrogen) 36 mg/dL (9.8-20.1); Calc. Creatinine Clearance 0 mL/min (70-130); Calcium 9.1 mg/dL (7.8-10.44); Carbon Dioxide 21 mmol/L (23-31); Chloride 107 mmol/L (98-107); Glucose 229 mg/dL (80-115); Potassium 4.3 mmol/L (3.5-5.1); Sodium 137 mmol/L (136-145)
[2021-10-05 04:52] LABS: Troponin I 0.227 ng/mL (< 0.028)
[2021-10-05 05:24] LABS: #Monocytes 0.3 thou/uL (0.11-0.59); #Neutrophils 8.3 thou/uL (1.40-6.50); %Basophils 0.1 % (0.0-1.0); %Eosinophils 0.1 % (0.0-10.0); %Lymphocytes 10.4 % (21.0-51.0); %Monocytes 2.9 % (0.0-10.0); %Neutrophils 86.6 % (42.0-75.0)
[2021-10-05] MEDS ORDERED: Heparin 25,000 units/D5W 500 ML ONE (07:40)
[2021-10-05 07:48] LABS: Troponin I 0.188 ng/mL (< 0.028)
[2021-10-05] MEDS: Furosemide 20 MG/2 ML VIAL SLOW IVP SCH ×2 (07:59→13:36)
[2021-10-05] MEDS ORDERED: Aspirin Chewable 81 MG TAB ONE (08:00)
[2021-10-05] MEDS ORDERED: Pantoprazole 40 MG VIAL ONE (08:00)
[2021-10-05] MEDS: Aspirin 81 mg Enteric Coated Tablet PO SCH (08:04)
[2021-10-05] MEDS: Carvedilol 6.25 MG TAB PO SCH ×2 (08:04→16:06)
[2021-10-05] MEDS ORDERED: hydrALAZINE 25 MG TAB ONE (09:04)
[2021-10-05] MEDS: hydrALAZINE 25 MG TAB PO SCH ×3 (09:13→20:49)
[2021-10-05 12:21] VITALS: BMI 35.2
[2021-10-05] MEDS ORDERED: Labetalol HCl 100 MG/20 ML VIAL SLOW IVP PRN (13:33)
[2021-10-05] MEDS ORDERED: NIFEdipine XL 30 MG TAB PO SCH (14:00)
[2021-10-05 14:26] LABS: SARS-CoV-2 PCR by NAA Not Detected (NotDetected)
[2021-10-05] MEDS ORDERED: FLU VACC QS2021-22(65YR UP)/PF 240 MCG/0.7 ML SYRINGE IM ONE (14:30)
[2021-10-05] MEDS: cloNIDine 0.2 MG TAB PO SCH ×2 (15:30→20:50)
[2021-10-05] MEDS: Cilostazol 100 MG TAB PO SCH (15:30)
[2021-10-05] MEDS: Gabapentin 300 MG CAP PO SCH ×2 (15:30→20:51)
[2021-10-05] MEDS: HumaLOG 300 UNITS/3 ML VIAL SC PRN (17:56)
[2021-10-05] MEDS: Atorvastatin Calcium 40 MG TAB PO SCH (20:50)
[2021-10-05] MEDS: NIFEdipine XL 60 MG TAB PO SCH (20:51)
[2021-10-05] MEDS: Allopurinol 300 MG TAB PO SCH (20:52)
[2021-10-05] MEDS: HumuLIN 70/30 (300 UNITS/3 ML VIAL) SC SCH (21:32)
[2021-10-06 05:44] LABS: #Eosinphils 0.1 thou/uL (0.0-0.7); #Lymphocytes 2.3 thou/uL (1.20-3.40); #Monocytes 1.1 thou/uL (0.11-0.59); #Neutrophils 7.7 thou/uL (1.40-6.50); %Basophils 0.2 % (0.0-1.0); %Eosinophils 0.7 % (0.0-10.0); %Lymphocytes 20.3 % (21.0-51.0); %Monocytes 10.1 % (0.0-10.0); %Neutrophils 68.8 % (42.0-75.0); Hemoglobin 8.7 g/dL (12.0-16.0); Mean Corpuscular HGB CONC 31.9 g/dL (32.0-36.0); Mean Corpuscular Hemoglobin 23.8 pg (27.0-31.0); Mean Corpuscular Volume 74.7 fL (78.0-98.0); Mean Platelet Volume 10.2 fL (7.4-10.4); Platelet Count 193 thou/uL (130-400); RBC Distribution Width 14.8 % (11.5-14.5); Red Blood Cell (RBC) Count 3.65 mill/uL (4.20-5.40); White Blood Cell (WBC) Count 11.2 thou/uL (4.8-10.8)
[2021-10-06 05:57] LABS: Anion Gap 15 mmol/L (10-20); BUN (Urea Nitrogen) 46 mg/dL (9.8-20.1); Calc. Creatinine Clearance 21 mL/min (70-130); Calcium 8.5 mg/dL (7.8-10.44); Carbon Dioxide 20 mmol/L (23-31); Chloride 106 mmol/L (98-107); Glucose 103 mg/dL (80-115); Potassium 4.1 mmol/L (3.5-5.1); Sodium 137 mmol/L (136-145)
[2021-10-06] MEDS: Furosemide 20 MG/2 ML VIAL SLOW IVP SCH (06:09)
[2021-10-06] MEDS ORDERED: Aspirin 81 mg Enteric Coated Tablet PO SCH (09:00)
[2021-10-06] MEDS: Cilostazol 100 MG TAB PO SCH ×2 (09:17→15:31)
[2021-10-06] MEDS: Anastrozole 1 MG TAB PO SCH (09:17)
[2021-10-06] MEDS: Carvedilol 6.25 MG TAB PO SCH ×2 (09:17→17:08)
[2021-10-06] MEDS: hydrALAZINE 25 MG TAB PO SCH ×3 (09:17→23:42)
[2021-10-06] MEDS: Gabapentin 300 MG CAP PO SCH ×3 (09:17→21:55)
[2021-10-06] MEDS: NIFEdipine XL 60 MG TAB PO SCH ×2 (09:18→21:54)
[2021-10-06] MEDS: cloNIDine 0.2 MG TAB PO SCH ×3 (09:18→21:55)
[2021-10-06] MEDS: Aspirin 81 mg Enteric Coated Tablet PO SCH (09:18)
[2021-10-06] MEDS: HumuLIN 70/30 (300 UNITS/3 ML VIAL) SC SCH ×3 (09:18→22:01)
[2021-10-06] MEDS: EPOETIN ALFA-EPBX (ESRD) 4,000 UNIT/ML VIAL SC SCH (11:43)
[2021-10-06] MEDS: Albumin 25% 25 GM/100 ML BOT IVPB SCH ×3 (12:06→23:44)
[2021-10-06] MEDS: Ferrous Sulfate 325 MG TAB PO SCH (17:07)
[2021-10-06] MEDS: Allopurinol 300 MG TAB PO SCH (21:55)
[2021-10-06] MEDS: Atorvastatin Calcium 40 MG TAB PO SCH (21:56)
[2021-10-06] MEDS: Apixaban 2.5 MG TAB PO SCH (21:56)
[2021-10-07 01:48] LABS: Hemoglobin 7.2 g/dL (12.0-16.0); Platelet Count 154 thou/uL (130-400)
[2021-10-07 05:02] LABS: INR-International Normal Ratio 1.2; PTT 33.6 sec (22.9-36.1); Prothrombin Time 15.3 sec (12.0-14.7)
[2021-10-07 05:11] LABS: Anion Gap 15 mmol/L (10-20); BUN (Urea Nitrogen) 49 mg/dL (9.8-20.1); Calc. Creatinine Clearance 18 mL/min (70-130); Calcium 8.7 mg/dL (7.8-10.44); Carbon Dioxide 21 mmol/L (23-31); Chloride 106 mmol/L (98-107); Potassium 3.5 mmol/L (3.5-5.1); Sodium 138 mmol/L (136-145)
[2021-10-07 05:17] LABS: Glucose 54 mg/dL (80-115); Hemoglobin 7.5 g/dL (12.0-16.0); Mean Corpuscular Hemoglobin 24.5 pg (27.0-31.0); Mean Corpuscular Volume 74.3 fL (78.0-98.0); Mean Platelet Volume 10.1 fL (7.4-10.4); Platelet Count 178 thou/uL (130-400); RBC Distribution Width 14.8 % (11.5-14.5); Red Blood Cell (RBC) Count 3.05 mill/uL (4.20-5.40); White Blood Cell (WBC) Count 7.6 thou/uL (4.8-10.8)
[2021-10-07 06:01] LABS: Lymphocytes 35 % (21-51); MDiff Complete? YES; Monocytes 6 % (0-10); Neutrophil 59 % (42-75)
[2021-10-07] MEDS: Albumin 25% 25 GM/100 ML BOT IVPB SCH ×4 (06:20→23:59)
[2021-10-07] MEDS: cloNIDine 0.2 MG TAB PO SCH ×3 (08:43→20:21)
[2021-10-07] MEDS: NIFEdipine XL 60 MG TAB PO SCH ×2 (08:43→20:25)
[2021-10-07] MEDS: Gabapentin 300 MG CAP PO SCH ×3 (08:43→20:21)
[2021-10-07] MEDS: hydrALAZINE 25 MG TAB PO SCH ×3 (08:44→21:00)
[2021-10-07] MEDS: Aspirin 81 mg Enteric Coated Tablet PO SCH (08:44)
[2021-10-07] MEDS: Anastrozole 1 MG TAB PO SCH (08:44)
[2021-10-07] MEDS: Carvedilol 6.25 MG TAB PO SCH ×2 (08:45→17:13)
[2021-10-07] MEDS: Apixaban 2.5 MG TAB PO SCH (08:45)
[2021-10-07] MEDS: Ferrous Sulfate 325 MG TAB PO SCH ×2 (08:45→17:13)
[2021-10-07] MEDS: Cilostazol 100 MG TAB PO SCH ×2 (08:45→17:13)
[2021-10-07] MEDS: HumuLIN 70/30 (300 UNITS/3 ML VIAL) SC SCH ×2 (08:46→09:16)
[2021-10-07] MEDS ORDERED: Albumin 25% 25 GM/100 ML BOT IVPB SCH (10:30)
[2021-10-07] MEDS ORDERED: HumuLIN 70/30 (300 UNITS/3 ML VIAL) SC SCH ×3 (11:30→21:00)
[2021-10-07 12:46] LABS: Hemoglobin 7.2 g/dL (12.0-16.0)
[2021-10-07] MEDS: Allopurinol 300 MG TAB PO SCH (20:18)
[2021-10-07] MEDS: Atorvastatin Calcium 40 MG TAB PO SCH (20:19)
[2021-10-08 01:07] LABS: Hemoglobin 7.3 g/dL (12.0-16.0)
[2021-10-08] MEDS: Albumin 25% 25 GM/100 ML BOT IVPB SCH (05:58)
[2021-10-08 06:33] LABS: #Eosinphils 0.2 thou/uL (0.0-0.7); #Lymphocytes 1.4 thou/uL (1.20-3.40); #Monocytes 0.8 thou/uL (0.11-0.59); #Neutrophils 5.5 thou/uL (1.40-6.50); %Basophils 0.3 % (0.0-1.0); %Eosinophils 2.7 % (0.0-10.0); %Lymphocytes 17.1 % (21.0-51.0); %Monocytes 10.5 % (0.0-10.0); %Neutrophils 69.5 % (42.0-75.0); Hemoglobin 7.1 g/dL (12.0-16.0); Mean Corpuscular HGB CONC 32.6 g/dL (32.0-36.0); Mean Corpuscular Volume 73.5 fL (78.0-98.0); Mean Platelet Volume 10.5 fL (7.4-10.4); Platelet Count 173 thou/uL (130-400); RBC Distribution Width 14.7 % (11.5-14.5); Red Blood Cell (RBC) Count 2.96 mill/uL (4.20-5.40); White Blood Cell (WBC) Count 7.9 thou/uL (4.8-10.8)
[2021-10-08 06:38] LABS: Anion Gap 15 mmol/L (10-20); BUN (Urea Nitrogen) 48 mg/dL (9.8-20.1); Calc. Creatinine Clearance 18 mL/min (70-130); Calcium 9.4 mg/dL (7.8-10.44); Carbon Dioxide 20 mmol/L (23-31); Chloride 104 mmol/L (98-107); Glucose 164 mg/dL (80-115); Sodium 135 mmol/L (136-145)
[2021-10-08] MEDS: Gabapentin 300 MG CAP PO SCH ×3 (08:50→20:54)
[2021-10-08] MEDS: Carvedilol 6.25 MG TAB PO SCH ×2 (08:50→15:53)
[2021-10-08] MEDS: Cilostazol 100 MG TAB PO SCH ×2 (08:50→15:53)
[2021-10-08] MEDS: hydrALAZINE 25 MG TAB PO SCH ×3 (08:50→20:57)
[2021-10-08] MEDS: Anastrozole 1 MG TAB PO SCH (08:51)
[2021-10-08] MEDS: Ferrous Sulfate 325 MG TAB PO SCH ×2 (08:51→15:54)
[2021-10-08] MEDS: Aspirin 81 mg Enteric Coated Tablet PO SCH (08:51)
[2021-10-08] MEDS: NIFEdipine XL 60 MG TAB PO SCH ×2 (08:51→20:53)
[2021-10-08] MEDS: cloNIDine 0.2 MG TAB PO SCH ×3 (08:51→20:53)
[2021-10-08] MEDS: Sodium Chloride 0.9% 1,000 ML IV SCH ×2 (11:00→21:04)
[2021-10-08] MEDS: HumaLOG 300 UNITS/3 ML VIAL SC PRN ×2 (11:04→16:56)
[2021-10-08 11:28] LABS: Reticulocyte Count 1.2 % (0.5-1.5)
[2021-10-08 11:37] LABS: Iron 10 ug/dL (50-170); Iron Binding Capacity, Total 253 mcg/dL (265-497)
[2021-10-08] MEDS: Allopurinol 300 MG TAB PO SCH (20:56)
[2021-10-08] MEDS: Atorvastatin Calcium 40 MG TAB PO SCH (20:58)
[2021-10-09] MEDS: Sodium Chloride 0.9% 1,000 ML IV SCH ×2 (02:23→15:50)
[2021-10-09 05:08] LABS: #Eosinphils 0.1 thou/uL (0.0-0.7); #Lymphocytes 1.2 thou/uL (1.20-3.40); %Eosinophils 0.8 % (0.0-10.0); %Lymphocytes 11.6 % (21.0-51.0); %Monocytes 9.7 % (0.0-10.0); %Neutrophils 77.9 % (42.0-75.0); Hemoglobin 8.4 g/dL (12.0-16.0); Mean Corpuscular HGB CONC 32.2 g/dL (32.0-36.0); Mean Corpuscular Volume 74.4 fL (78.0-98.0); Mean Platelet Volume 9.7 fL (7.4-10.4); Platelet Count 198 thou/uL (130-400); Red Blood Cell (RBC) Count 3.52 mill/uL (4.20-5.40); White Blood Cell (WBC) Count 10.2 thou/uL (4.8-10.8)
[2021-10-09 05:23] LABS: Anion Gap 15 mmol/L (10-20); BUN (Urea Nitrogen) 49 mg/dL (9.8-20.1); Calc. Creatinine Clearance 18 mL/min (70-130); Calcium 9.6 mg/dL (7.8-10.44); Carbon Dioxide 20 mmol/L (23-31); Chloride 105 mmol/L (98-107); Glucose 178 mg/dL (80-115); Potassium 3.9 mmol/L (3.5-5.1); Sodium 136 mmol/L (136-145)
[2021-10-09] MEDS ORDERED: Bisacodyl 5 MG TAB PO PRN (07:03)
[2021-10-09] MEDS ORDERED: Artificial Tear Sol 15 ML BOT EA EYE PRN (07:03)
[2021-10-09] MEDS ORDERED: Zolpidem Tartrate 5 MG TAB PO PRN (07:03)
[2021-10-09] MEDS ORDERED: Calcium Carbonate 500 MG ChewTAB PO PRN (07:03)
[2021-10-09] MEDS ORDERED: Cepastat Lozenges 1 LOZ PO PRN (07:03)
[2021-10-09] MEDS ORDERED: Loratadine 10 MG TAB PO PRN (07:03)
[2021-10-09] MEDS ORDERED: Loperamide HCl 2 MG CAP PO PRN (07:03)
[2021-10-09] MEDS ORDERED: GUAIFENESIN SF SOLN 200 MG/10 ML UDCUP PO PRN (07:03)
[2021-10-09] MEDS ORDERED: Hydrocerin (Eucerin) Cream 120 gm Jar TOP PRN (07:03)
[2021-10-09] MEDS ORDERED: Benzonatate 100 MG CAP PO PRN (07:03)
[2021-10-09] MEDS ORDERED: Ondansetron ODT 4 MG TAB PO PRN (07:03)
[2021-10-09] MEDS ORDERED: Sodium Chloride 0.65% Nasal 44 ML BOT EA NARE PRN (07:03)
[2021-10-09] MEDS: hydrALAZINE 25 MG TAB PO SCH ×3 (07:45→20:30)
[2021-10-09] MEDS: cloNIDine 0.2 MG TAB PO SCH ×3 (07:45→20:29)
[2021-10-09] MEDS: Aspirin 81 mg Enteric Coated Tablet PO SCH (07:46)
[2021-10-09] MEDS: Gabapentin 300 MG CAP PO SCH (07:46)
[2021-10-09] MEDS: Anastrozole 1 MG TAB PO SCH (07:46)
[2021-10-09] MEDS: Cilostazol 100 MG TAB PO SCH ×2 (07:47→15:51)
[2021-10-09] MEDS: Ferrous Sulfate 325 MG TAB PO SCH ×2 (07:47→15:52)
[2021-10-09] MEDS: Carvedilol 6.25 MG TAB PO SCH ×2 (07:47→15:51)
[2021-10-09] MEDS: NIFEdipine XL 60 MG TAB PO SCH ×2 (07:47→20:31)
[2021-10-09] MEDS: Folic Acid/Vit B Comp W-C PO SCH (07:47)
[2021-10-09] MEDS: Cholecalciferol 1,000 UNITS (25 MCG) TAB PO SCH (07:47)
[2021-10-09] MEDS ORDERED: Non-Formulary Item 1 EACH (Cholecalciferol (Vitamin D3) [Vitamin D3] 2,000 UNIT Capsule) PO SCH (09:00)
[2021-10-09] MEDS: HumaLOG 300 UNITS/3 ML VIAL SC PRN ×2 (11:17→17:48)
[2021-10-09] MEDS: Senokot S 8.6-50 MG TAB PO PRN (11:19)
[2021-10-09] MEDS: Allopurinol 300 MG TAB PO SCH (20:31)
[2021-10-09] MEDS: Atorvastatin Calcium 40 MG TAB PO SCH (20:31)
[2021-10-09] MEDS: Ezetimibe 10 MG TAB PO SCH (20:31)
[2021-10-10] MEDS: Sodium Chloride 0.9% 1,000 ML IV SCH ×3 (00:42→22:40)
[2021-10-10 05:53] LABS: #Eosinphils 0.1 thou/uL (0.0-0.7); #Lymphocytes 1.4 thou/uL (1.20-3.40); #Monocytes 1.1 thou/uL (0.11-0.59); #Neutrophils 8.1 thou/uL (1.40-6.50); %Basophils 0.1 % (0.0-1.0); %Eosinophils 0.8 % (0.0-10.0); %Lymphocytes 12.9 % (21.0-51.0); %Monocytes 10.1 % (0.0-10.0); %Neutrophils 76.2 % (42.0-75.0); Hemoglobin 8.4 g/dL (12.0-16.0); Mean Corpuscular HGB CONC 32.8 g/dL (32.0-36.0); Mean Corpuscular Hemoglobin 24.5 pg (27.0-31.0); Mean Corpuscular Volume 74.7 fL (78.0-98.0); Platelet Count 220 thou/uL (130-400); RBC Distribution Width 15.4 % (11.5-14.5); Red Blood Cell (RBC) Count 3.43 mill/uL (4.20-5.40); White Blood Cell (WBC) Count 10.6 thou/uL (4.8-10.8)
[2021-10-10 06:35] LABS: Anion Gap 18 mmol/L (10-20); BUN (Urea Nitrogen) 47 mg/dL (9.8-20.1); Calc. Creatinine Clearance 20 mL/min (70-130); Calcium 9.6 mg/dL (7.8-10.44); Carbon Dioxide 17 mmol/L (23-31); Chloride 108 mmol/L (98-107); Glucose 160 mg/dL (80-115); Sodium 139 mmol/L (136-145)
[2021-10-10] MEDS: Folic Acid/Vit B Comp W-C PO SCH (08:58)
[2021-10-10] MEDS: hydrALAZINE 25 MG TAB PO SCH ×3 (08:58→22:36)
[2021-10-10] MEDS: Cilostazol 100 MG TAB PO SCH ×2 (08:58→16:26)
[2021-10-10] MEDS: Carvedilol 6.25 MG TAB PO SCH ×2 (08:59→16:26)
[2021-10-10] MEDS: Cholecalciferol 1,000 UNITS (25 MCG) TAB PO SCH (08:59)
[2021-10-10] MEDS: Gabapentin 100 MG CAP PO SCH (08:59)
[2021-10-10] MEDS: Anastrozole 1 MG TAB PO SCH (08:59)
[2021-10-10] MEDS: cloNIDine 0.2 MG TAB PO SCH ×3 (09:00→22:24)
[2021-10-10] MEDS: NIFEdipine XL 60 MG TAB PO SCH ×2 (09:00→22:23)
[2021-10-10] MEDS: Ferrous Sulfate 325 MG TAB PO SCH ×2 (09:00→16:25)
[2021-10-10] MEDS: Aspirin 81 mg Enteric Coated Tablet PO SCH (09:00)
[2021-10-10] MEDS: Sodium Bicarbonate Tab 325 MG TAB PO SCH ×3 (09:25→21:00)
[2021-10-10] MEDS: HumaLOG 300 UNITS/3 ML VIAL SC PRN (11:28)
[2021-10-10] MEDS: Allopurinol 300 MG TAB PO SCH (22:24)
[2021-10-10] MEDS: Atorvastatin Calcium 40 MG TAB PO SCH (22:24)
[2021-10-10] MEDS: Ezetimibe 10 MG TAB PO SCH (22:24)
[2021-10-11 05:29] LABS: #Eosinphils 0.2 thou/uL (0.0-0.7); #Lymphocytes 1.1 thou/uL (1.20-3.40); #Neutrophils 7.2 thou/uL (1.40-6.50); %Basophils 0.2 % (0.0-1.0); %Lymphocytes 11.8 % (21.0-51.0); %Monocytes 10.8 % (0.0-10.0); %Neutrophils 75.2 % (42.0-75.0); Hemoglobin 8.3 g/dL (12.0-16.0); Mean Corpuscular Hemoglobin 23.3 pg (27.0-31.0); Mean Corpuscular Volume 75.4 fL (78.0-98.0); Mean Platelet Volume 8.9 fL (7.4-10.4); Platelet Count 241 thou/uL (130-400); RBC Distribution Width 15.5 % (11.5-14.5); Red Blood Cell (RBC) Count 3.53 mill/uL (4.20-5.40); White Blood Cell (WBC) Count 9.5 thou/uL (4.8-10.8)
[2021-10-11 05:52] LABS: Anion Gap 16 mmol/L (10-20); BUN (Urea Nitrogen) 48 mg/dL (9.8-20.1); Calc. Creatinine Clearance 20 mL/min (70-130); Calcium 10.2 mg/dL (7.8-10.44); Carbon Dioxide 18 mmol/L (23-31); Chloride 110 mmol/L (98-107); Glucose 154 mg/dL (80-115); Potassium 3.9 mmol/L (3.5-5.1); Sodium 140 mmol/L (136-145)
[2021-10-11] MEDS: cloNIDine 0.2 MG TAB PO SCH ×3 (08:09→20:12)
[2021-10-11] MEDS: Ferrous Sulfate 325 MG TAB PO SCH ×2 (08:10→17:00)
[2021-10-11] MEDS: Gabapentin 100 MG CAP PO SCH (08:10)
[2021-10-11] MEDS: Cilostazol 100 MG TAB PO SCH ×2 (08:10→15:25)
[2021-10-11] MEDS: Carvedilol 6.25 MG TAB PO SCH (08:10)
[2021-10-11] MEDS: Sodium Bicarbonate Tab 325 MG TAB PO SCH ×3 (08:11→20:13)
[2021-10-11] MEDS: NIFEdipine XL 60 MG TAB PO SCH (08:11)
[2021-10-11] MEDS: Cholecalciferol 1,000 UNITS (25 MCG) TAB PO SCH (08:11)
[2021-10-11] MEDS: Folic Acid/Vit B Comp W-C PO SCH (08:11)
[2021-10-11] MEDS: hydrALAZINE 25 MG TAB PO SCH ×3 (08:11→20:11)
[2021-10-11] MEDS: Anastrozole 1 MG TAB PO SCH (08:11)
[2021-10-11] MEDS: Aspirin 81 mg Enteric Coated Tablet PO SCH (08:11)
[2021-10-11] MEDS ORDERED: Carvedilol 6.25 MG TAB PO SCH (08:48)
[2021-10-11] MEDS: Carvedilol 25 MG TAB PO SCH ×2 (09:13→17:00)
[2021-10-11] MEDS: HumaLOG 300 UNITS/3 ML VIAL SC PRN ×2 (11:22→17:03)
[2021-10-11] MEDS: Sodium Chloride 0.9% 1,000 ML IV SCH (11:22)
[2021-10-11] MEDS ORDERED: NIFEdipine XL 30 MG TAB PO SCH (11:45)
[2021-10-11] MEDS: NIFEdipine XL 90 MG TAB PO SCH (20:12)
[2021-10-11] MEDS: Ezetimibe 10 MG TAB PO SCH (20:12)
[2021-10-11] MEDS: Atorvastatin Calcium 40 MG TAB PO SCH (20:12)
[2021-10-11] MEDS: Allopurinol 300 MG TAB PO SCH (20:13)
[2021-10-12] MEDS ORDERED: ALPRAZolam 0.5 MG TAB PO SCH (01:15)
[2021-10-12] MEDS: Sodium Chloride 0.9% 1,000 ML IV SCH (01:20)
[2021-10-12 04:30] LABS: #Eosinphils 0.1 thou/uL (0.0-0.7); #Monocytes 0.7 thou/uL (0.11-0.59); #Neutrophils 8.2 thou/uL (1.40-6.50); %Basophils 0.1 % (0.0-1.0); %Lymphocytes 9.8 % (21.0-51.0); %Monocytes 7.1 % (0.0-10.0); %Neutrophils 82.1 % (42.0-75.0); Hemoglobin 8.5 g/dL (12.0-16.0); Mean Corpuscular HGB CONC 32.3 g/dL (32.0-36.0); Mean Corpuscular Hemoglobin 24.7 pg (27.0-31.0); Mean Corpuscular Volume 76.6 fL (78.0-98.0); Mean Platelet Volume 8.6 fL (7.4-10.4); Platelet Count 258 thou/uL (130-400); RBC Distribution Width 15.4 % (11.5-14.5); Red Blood Cell (RBC) Count 3.43 mill/uL (4.20-5.40)
[2021-10-12 04:40] LABS: Anion Gap 13 mmol/L (10-20); BUN (Urea Nitrogen) 48 mg/dL (9.8-20.1); Calc. Creatinine Clearance 21 mL/min (70-130); Calcium 9.8 mg/dL (7.8-10.44); Carbon Dioxide 18 mmol/L (23-31); Chloride 109 mmol/L (98-107); Glucose 199 mg/dL (80-115); Sodium 136 mmol/L (136-145)
[2021-10-12] MEDS: Cilostazol 100 MG TAB PO SCH ×2 (09:54→15:29)
[2021-10-12] MEDS: Ferrous Sulfate 325 MG TAB PO SCH ×2 (09:55→16:43)
[2021-10-12] MEDS: Carvedilol 25 MG TAB PO SCH ×2 (09:55→16:43)
[2021-10-12] MEDS: Sodium Bicarbonate Tab 325 MG TAB PO SCH ×3 (09:55→21:54)
[2021-10-12] MEDS: cloNIDine 0.2 MG TAB PO SCH ×3 (09:56→21:57)
[2021-10-12] MEDS: NIFEdipine XL 90 MG TAB PO SCH ×2 (09:56→21:55)
[2021-10-12] MEDS: Cholecalciferol 1,000 UNITS (25 MCG) TAB PO SCH (09:56)
[2021-10-12] MEDS: Aspirin 81 mg Enteric Coated Tablet PO SCH (09:56)
[2021-10-12] MEDS: Gabapentin 100 MG CAP PO SCH (09:57)
[2021-10-12] MEDS: Anastrozole 1 MG TAB PO SCH (09:58)
[2021-10-12] MEDS: hydrALAZINE 25 MG TAB PO SCH ×2 (09:58→21:58)
[2021-10-12] MEDS: Folic Acid/Vit B Comp W-C PO SCH (09:58)
[2021-10-12] MEDS ORDERED: hydrALAZINE 25 MG TAB PO SCH (13:15)
[2021-10-12 20:48] LABS: Actual Bicarbonate (HCO3a) 19.6 mEq/L (22-28); Base Excess (BEa) -5.5 mEq/L (-2.0 to +3.0); CO2 Tension 36.7 mmHg (35.0-45.0); Calcium, Ionized (arterial) 1.28 mmol/L (1.12-1.30); Carboxyhemoglobin (COHb) 0.4 gm% (0.0-3.0); Hemoglobin (Hb) 11.7 g/dL (12.0-16.0); Potassium - ABG Lab 3.89 mmol/L (3.70-5.30); pH, Arterial 7.35 (7.35-7.45)
[2021-10-12 20:55] LABS: O2 Tension (PaO2), arterial 56.7 mmHg (> 80.0); Puncture Site RBA
[2021-10-12 20:56] LABS: ALV-art Gradient 97.065 mmHg (0-20)
[2021-10-12] MEDS: Ezetimibe 10 MG TAB PO SCH (21:54)
[2021-10-12] MEDS: Atorvastatin Calcium 40 MG TAB PO SCH (21:58)
[2021-10-12] MEDS: Allopurinol 300 MG TAB PO SCH (21:58)
[2021-10-12] MEDS: Heparin 5,000 UNITS/ML VIAL SC SCH (21:59)
[2021-10-13 05:02] LABS: #Eosinphils 0.2 thou/uL (0.0-0.7); #Lymphocytes 1.1 thou/uL (1.20-3.40); #Monocytes 0.5 thou/uL (0.11-0.59); #Neutrophils 5.6 thou/uL (1.40-6.50); %Basophils 0.2 % (0.0-1.0); %Monocytes 6.8 % (0.0-10.0); %Neutrophils 74.9 % (42.0-75.0); Hemoglobin 7.8 g/dL (12.0-16.0); Mean Corpuscular HGB CONC 31.7 g/dL (32.0-36.0); Mean Corpuscular Hemoglobin 24.4 pg (27.0-31.0); Mean Corpuscular Volume 76.9 fL (78.0-98.0); Mean Platelet Volume 8.6 fL (7.4-10.4); Platelet Count 252 thou/uL (130-400); RBC Distribution Width 15.3 % (11.5-14.5); Red Blood Cell (RBC) Count 3.21 mill/uL (4.20-5.40); White Blood Cell (WBC) Count 7.4 thou/uL (4.8-10.8)
[2021-10-13 05:27] LABS: Anion Gap 13 mmol/L (10-20); BUN (Urea Nitrogen) 50 mg/dL (9.8-20.1); Calc. Creatinine Clearance 22 mL/min (70-130); Calcium 9.8 mg/dL (7.8-10.44); Carbon Dioxide 19 mmol/L (23-31); Chloride 110 mmol/L (98-107); Glucose 173 mg/dL (80-115); Sodium 138 mmol/L (136-145)
[2021-10-13] MEDS: Heparin 5,000 UNITS/ML VIAL SC SCH ×2 (08:45→20:56)
[2021-10-13] MEDS: Folic Acid/Vit B Comp W-C PO SCH (08:46)
[2021-10-13] MEDS: hydrALAZINE 25 MG TAB PO SCH ×3 (08:46→23:25)
[2021-10-13] MEDS: NIFEdipine XL 90 MG TAB PO SCH ×2 (08:46→20:53)
[2021-10-13] MEDS: Sodium Bicarbonate Tab 325 MG TAB PO SCH ×3 (08:46→20:47)
[2021-10-13] MEDS: Cholecalciferol 1,000 UNITS (25 MCG) TAB PO SCH (08:47)
[2021-10-13] MEDS: cloNIDine 0.2 MG TAB PO SCH ×3 (08:47→23:25)
[2021-10-13] MEDS: Anastrozole 1 MG TAB PO SCH (08:47)
[2021-10-13] MEDS: Ferrous Sulfate 325 MG TAB PO SCH ×2 (08:48→16:38)
[2021-10-13] MEDS: Aspirin 81 mg Enteric Coated Tablet PO SCH (08:49)
[2021-10-13] MEDS: Cilostazol 100 MG TAB PO SCH ×2 (08:49→16:38)
[2021-10-13] MEDS: Carvedilol 25 MG TAB PO SCH ×2 (08:51→16:38)
[2021-10-13] MEDS: HumaLOG 300 UNITS/3 ML VIAL SC PRN (11:14)
[2021-10-13] MEDS: EPOETIN ALFA-EPBX (ESRD) 4,000 UNIT/ML VIAL SC SCH (13:54)
[2021-10-13 14:28] LABS: SARS-CoV-2 PCR by NAA Not Detected (NotDetected)
[2021-10-13] MEDS: Atorvastatin Calcium 40 MG TAB PO SCH (20:47)
[2021-10-13] MEDS: Allopurinol 300 MG TAB PO SCH (20:48)
[2021-10-13] MEDS: Ezetimibe 10 MG TAB PO SCH (20:48)
[2021-10-14 05:26] LABS: #Eosinphils 0.2 thou/uL (0.0-0.7); #Lymphocytes 1.2 thou/uL (1.20-3.40); #Monocytes 0.6 thou/uL (0.11-0.59); #Neutrophils 4.4 thou/uL (1.40-6.50); %Basophils 0.4 % (0.0-1.0); %Eosinophils 3.5 % (0.0-10.0); %Lymphocytes 18.8 % (21.0-51.0); %Monocytes 8.9 % (0.0-10.0); %Neutrophils 68.5 % (42.0-75.0); Hemoglobin 7.9 g/dL (12.0-16.0); Mean Corpuscular HGB CONC 32.5 g/dL (32.0-36.0); Mean Corpuscular Hemoglobin 24.5 pg (27.0-31.0); Mean Corpuscular Volume 75.4 fL (78.0-98.0); Mean Platelet Volume 8.4 fL (7.4-10.4); Platelet Count 261 thou/uL (130-400); RBC Distribution Width 15.2 % (11.5-14.5); Red Blood Cell (RBC) Count 3.22 mill/uL (4.20-5.40); White Blood Cell (WBC) Count 6.4 thou/uL (4.8-10.8)
[2021-10-14 05:41] LABS: Anion Gap 13 mmol/L (10-20); BUN (Urea Nitrogen) 46 mg/dL (9.8-20.1); Calc. Creatinine Clearance 23 mL/min (70-130); Calcium 9.2 mg/dL (7.8-10.44); Carbon Dioxide 18 mmol/L (23-31); Chloride 110 mmol/L (98-107); Glucose 136 mg/dL (80-115); Potassium 3.6 mmol/L (3.5-5.1); Sodium 137 mmol/L (136-145)
[2021-10-14] MEDS: Senokot S 8.6-50 MG TAB PO PRN (08:25)
[2021-10-14] MEDS: cloNIDine 0.2 MG TAB PO SCH (08:25)
[2021-10-14] MEDS: Aspirin 81 mg Enteric Coated Tablet PO SCH (08:25)
[2021-10-14] MEDS: hydrALAZINE 25 MG TAB PO SCH ×3 (08:26→20:50)
[2021-10-14] MEDS: Cilostazol 100 MG TAB PO SCH ×2 (08:26→16:17)
[2021-10-14] MEDS: Anastrozole 1 MG TAB PO SCH (08:26)
[2021-10-14] MEDS: Ferrous Sulfate 325 MG TAB PO SCH ×2 (08:26→16:17)
[2021-10-14] MEDS: NIFEdipine XL 90 MG TAB PO SCH ×2 (08:27→20:49)
[2021-10-14] MEDS: Sodium Bicarbonate Tab 325 MG TAB PO SCH ×3 (08:27→20:49)
[2021-10-14] MEDS: Folic Acid/Vit B Comp W-C PO SCH (08:27)
[2021-10-14] MEDS: Carvedilol 25 MG TAB PO SCH ×2 (08:28→16:17)
[2021-10-14] MEDS: Heparin 5,000 UNITS/ML VIAL SC SCH ×2 (08:28→20:49)
[2021-10-14] MEDS: Cholecalciferol 1,000 UNITS (25 MCG) TAB PO SCH (08:28)
[2021-10-14] MEDS ORDERED: EPOETIN ALFA-EPBX (ESRD) 4,000 UNIT/ML VIAL SC SCH (09:33)
[2021-10-14] MEDS ORDERED: EPOETIN ALFA-EPBX (ESRD) 3,000 UNIT/ML VIAL SC SCH (11:00)
[2021-10-14] MEDS ORDERED: EPOETIN ALFA-EPBX (ESRD) 10,000 UNIT/ML VIAL SC SCH (12:00)
[2021-10-14] MEDS: cloNIDine 0.1 MG TAB PO SCH ×2 (14:38→20:50)
[2021-10-14] MEDS: Furosemide 20 MG TAB PO SCH (14:38)
[2021-10-14] MEDS: HumaLOG 300 UNITS/3 ML VIAL SC PRN (17:43)
[2021-10-14] MEDS: Atorvastatin Calcium 40 MG TAB PO SCH (20:50)
[2021-10-14] MEDS: Ezetimibe 10 MG TAB PO SCH (20:50)
[2021-10-14] MEDS: Allopurinol 300 MG TAB PO SCH (20:51)
[2021-10-15 04:53] LABS: #Eosinphils 0.2 thou/uL (0.0-0.7); #Lymphocytes 1.6 thou/uL (1.20-3.40); #Monocytes 0.5 thou/uL (0.11-0.59); #Neutrophils 4.9 thou/uL (1.40-6.50); %Basophils 0.2 % (0.0-1.0); %Eosinophils 2.6 % (0.0-10.0); %Lymphocytes 21.9 % (21.0-51.0); %Neutrophils 68.4 % (42.0-75.0); Mean Corpuscular HGB CONC 31.8 g/dL (32.0-36.0); Mean Corpuscular Volume 75.5 fL (78.0-98.0); Mean Platelet Volume 8.3 fL (7.4-10.4); Platelet Count 292 thou/uL (130-400); RBC Distribution Width 15.2 % (11.5-14.5); Red Blood Cell (RBC) Count 3.35 mill/uL (4.20-5.40); White Blood Cell (WBC) Count 7.2 thou/uL (4.8-10.8)
[2021-10-15 05:27] LABS: Anion Gap 13 mmol/L (10-20); BUN (Urea Nitrogen) 44 mg/dL (9.8-20.1); Calc. Creatinine Clearance 24 mL/min (70-130); Calcium 9.5 mg/dL (7.8-10.44); Carbon Dioxide 19 mmol/L (23-31); Chloride 111 mmol/L (98-107); Glucose 138 mg/dL (80-115); Potassium 3.6 mmol/L (3.5-5.1); Sodium 139 mmol/L (136-145)
[2021-10-15] MEDS: Ferrous Sulfate 325 MG TAB PO SCH ×2 (08:42→17:18)
[2021-10-15] MEDS: Aspirin 81 mg Enteric Coated Tablet PO SCH (08:43)
[2021-10-15] MEDS: Carvedilol 25 MG TAB PO SCH ×2 (08:43→17:19)
[2021-10-15] MEDS: Anastrozole 1 MG TAB PO SCH (08:43)
[2021-10-15] MEDS: Cholecalciferol 1,000 UNITS (25 MCG) TAB PO SCH (08:44)
[2021-10-15] MEDS: cloNIDine 0.1 MG TAB PO SCH ×2 (08:44→15:04)
[2021-10-15] MEDS: Folic Acid/Vit B Comp W-C PO SCH (08:44)
[2021-10-15] MEDS: Furosemide 20 MG TAB PO SCH ×2 (08:44→15:06)
[2021-10-15] MEDS: hydrALAZINE 25 MG TAB PO SCH ×2 (08:44→15:05)
[2021-10-15] MEDS: NIFEdipine XL 90 MG TAB PO SCH (08:45)
[2021-10-15] MEDS: Sodium Bicarbonate Tab 325 MG TAB PO SCH ×2 (08:45→15:04)
[2021-10-15] MEDS: Cilostazol 100 MG TAB PO SCH ×2 (08:54→17:18)
[2021-10-15] MEDS: Heparin 5,000 UNITS/ML VIAL SC SCH (08:55)
[2021-10-15] MEDS: HumaLOG 300 UNITS/3 ML VIAL SC PRN (11:13)
[2021-10-15 15:04] VITALS: BP 130/65; TEMP 98.7
== END 2021-10-15 18:20 | disposition home health service (06) | DRG 280 ==
LOC: ERS 18:39 → ERHOLD 10-05 01:54 → 2NO 10-05 11:55
PROVIDERS: ADMIT Internal Medicine; ATTEND Internal Medicine
PROC: 30233N1 Transfusion of Nonautologous Red Blood Cells into Peripheral Vein, Percutaneous Approach (ICD-10-PCS; principal; 2021-10-08)
PROC: 5A09357 Assistance with Respiratory Ventilation, Less than 24 Consecutive Hours, Continuous Positive Airway Pressure (ICD-10-PCS; 2021-10-12)
DX: I13.0 Hypertensive heart and chronic kidney disease with heart failure and stage 1 through stage 4 chronic kidney disease, or unspecified chronic kidney disease (principal); I50.33 Acute on chronic diastolic (congestive) heart failure; I21.A1 Myocardial infarction type 2; J96.01 Acute respiratory failure with hypoxia; N17.9 Acute kidney failure, unspecified; I69.354 Hemiplegia and hemiparesis following cerebral infarction affecting left non-dominant side; G93.40 Encephalopathy, unspecified; E87.2 Acidosis; E66.2 Morbid (severe) obesity with alveolar hypoventilation; I16.0 Hypertensive urgency; Z20.822 Contact with and (suspected) exposure to COVID-19; N18.30 Chronic kidney disease, stage 3 unspecified; D63.1 Anemia in chronic kidney disease; E11.22 Type 2 diabetes mellitus with diabetic chronic kidney disease; J44.9 Chronic obstructive pulmonary disease, unspecified; E78.5 Hyperlipidemia, unspecified; E11.51 Type 2 diabetes mellitus with diabetic peripheral angiopathy without gangrene; Z68.38 Body mass index [BMI] 38.0-38.9, adult; Z28.21 Immunization not carried out because of patient refusal; Z85.3 Personal history of malignant neoplasm of breast; Z87.891 Personal history of nicotine dependence; Z90.710 Acquired absence of both cervix and uterus; Z88.5 Allergy status to narcotic agent; Z88.0 Allergy status to penicillin; Z79.899 Other long term (current) drug therapy; Z79.82 Long term (current) use of aspirin; Z79.4 Long term (current) use of insulin; Z79.84 Long term (current) use of oral hypoglycemic drugs; Z79.811 Long term (current) use of aromatase inhibitors
CPT/HCPCS: 36415; 36416; 36430; 36600; 70450; 71045; 74018; 78451; 80048; 80053; 81003; 81015; 82274; 82553; 82607; 82728; 82746; 82805; 83540; 83550; 83605; 83880; 84443; 84484; 85014; 85018; 85025; 85046; 85049; 85379; 85610; 85730; 86850; 86900; 86901; 93005; 93306; 93970; 94640; 96365; 96366; 96372; 96375; 96376; 97139; A9540; C9113; J0360; J1630; J1644; J1815; J1940; J2060; J7050; J7620; P9016; P9047; Q5105; U0003; U0005

== ENCOUNTER 2021-10-17 20:40 | Inpatient (IN) | payer MEDICARE ==
[2021-10-17 21:27] LABS: #Eosinphils 0.2 thou/uL (0.0-0.7); #Lymphocytes 1.2 thou/uL (1.20-3.40); #Monocytes 0.3 thou/uL (0.11-0.59); #Neutrophils 8.5 thou/uL (1.40-6.50); %Basophils 0.3 % (0.0-1.0); %Eosinophils 1.9 % (0.0-10.0); %Lymphocytes 11.4 % (21.0-51.0); %Monocytes 3.2 % (0.0-10.0); %Neutrophils 83.3 % (42.0-75.0); Hemoglobin 9.4 g/dL (12.0-16.0); Mean Corpuscular Hemoglobin 24.8 pg (27.0-31.0); Mean Corpuscular Volume 75.1 fL (78.0-98.0); Mean Platelet Volume 7.9 fL (7.4-10.4); Platelet Count 345 thou/uL (130-400); RBC Distribution Width 15.4 % (11.5-14.5); Red Blood Cell (RBC) Count 3.77 mill/uL (4.20-5.40); White Blood Cell (WBC) Count 10.2 thou/uL (4.8-10.8)
[2021-10-17 21:42] LABS: Anion Gap 12 mmol/L (10-20); BUN (Urea Nitrogen) 33 mg/dL (9.8-20.1); Calc. Creatinine Clearance 0 mL/min (70-130); Carbon Dioxide 22 mmol/L (23-31); Chloride 112 mmol/L (98-107); Potassium 3.7 mmol/L (3.5-5.1); Sodium 142 mmol/L (136-145)
[2021-10-17 21:43] LABS: ALT (SGPT) 15 U/L (8-55); AST (SGOT) 37 U/L (5-34); Albumin 3.2 g/dL (3.4-4.8); Alkaline Phosphatase 84 U/L (40-110); Bilirubin, Total 0.2 mg/dL (0.2-1.2); Calcium 9.2 mg/dL (7.8-10.44); Globulin 3.6 g/dL (2.4-3.5); Glucose 104 mg/dL (80-115); Protein, Total 6.8 g/dL (5.8-8.1)
[2021-10-17 21:46] LABS: Bilirubin Negative (Negative); Blood, Urine Negative (Negative); Clarity Clear (Clear); Glucose, Urine (Dipstick) Normal (Negative); Ketone, Urine Negative (Negative); Leukocyte Negative Leu/uL (Negative); Nitrite Negative (Negative); Protein, Urine (Dipstick) 300 mg/dL (Neg-Trace); RBC/HPF 0-3 HPF (0-3); Specific Gravity, Urine 1.013 (1.002-1.036); Squamous Epithelial 0-3 HPF (0-3); Urobilinogen Normal mg/dL (Less than 2); WBC/HPF 0-3 HPF (0-3)
[2021-10-17 21:52] LABS: Bacteria/HPF 1+ HPF (None Seen)
[2021-10-18 01:12] VITALS: BMI 38.1
[2021-10-18] MEDS ORDERED: Acetaminophen 325 MG TAB PO PRN (02:37)
[2021-10-18] MEDS ORDERED: Dextrose 50% Abboject 50 ML SYRINGE SLOW IVP PRN (02:39)
[2021-10-18] MEDS ORDERED: Dextrose 5% in Water 1,000 ML IV PRN (02:39)
[2021-10-18] MEDS: Cefepime 1 GM in Sodium Chloride 0.9% 100 ML IVPB SCH (03:19)
[2021-10-18] MEDS ORDERED: VANCOMYCIN 2 GRAM/400 ML BAG 2 GM in Premix Bag 1 BAG IVPB SCH (04:00)
[2021-10-18 05:04] LABS: #Eosinphils 0.1 thou/uL (0.0-0.7); #Lymphocytes 1.3 thou/uL (1.20-3.40); #Monocytes 0.4 thou/uL (0.11-0.59); #Neutrophils 9.4 thou/uL (1.40-6.50); %Basophils 0.3 % (0.0-1.0); %Eosinophils 0.5 % (0.0-10.0); %Lymphocytes 11.6 % (21.0-51.0); %Monocytes 3.9 % (0.0-10.0); %Neutrophils 83.8 % (42.0-75.0); Hemoglobin 8.9 g/dL (12.0-16.0); Mean Corpuscular HGB CONC 32.2 g/dL (32.0-36.0); Mean Corpuscular Hemoglobin 24.3 pg (27.0-31.0); Mean Corpuscular Volume 75.3 fL (78.0-98.0); Mean Platelet Volume 7.9 fL (7.4-10.4); Platelet Count 314 thou/uL (130-400); RBC Distribution Width 15.6 % (11.5-14.5); Red Blood Cell (RBC) Count 3.67 mill/uL (4.20-5.40); White Blood Cell (WBC) Count 11.2 thou/uL (4.8-10.8)
[2021-10-18 05:26] LABS: Anion Gap 13 mmol/L (10-20); BUN (Urea Nitrogen) 37 mg/dL (9.8-20.1); Calc. Creatinine Clearance 24 mL/min (70-130); Carbon Dioxide 21 mmol/L (23-31); Chloride 111 mmol/L (98-107); Glucose 242 mg/dL (80-115); Potassium 3.5 mmol/L (3.5-5.1); Sodium 141 mmol/L (136-145)
[2021-10-18] MEDS ORDERED: FLU VACC QS2021-22(65YR UP)/PF 240 MCG/0.7 ML SYRINGE IM ONE (09:00)
[2021-10-18] MEDS ORDERED: hydrALAZINE 20 MG/ML VIAL SLOW IVP PRN (13:44)
[2021-10-18] MEDS: cloNIDine 0.1 MG TAB PO SCH ×2 (15:07→20:25)
[2021-10-18] MEDS: hydrALAZINE 25 MG TAB PO SCH ×2 (15:07→20:27)
[2021-10-18] MEDS ORDERED: Amlodipine 5 MG TAB PO SCH (15:30)
[2021-10-18] MEDS ORDERED: Aspirin 81 mg Enteric Coated Tablet PO SCH (15:30)
[2021-10-18] MEDS ORDERED: Clopidogrel Bisulfate 75 MG TAB PO SCH (15:30)
[2021-10-18] MEDS: Labetalol HCl 100 MG/20 ML VIAL SLOW IVP PRN ×2 (16:34→23:54)
[2021-10-18] MEDS: Carvedilol 25 MG TAB PO SCH (17:01)
[2021-10-18] MEDS: Dextrose 5 % And 0.9 % NaCl 1,000 ML IV SCH (17:50)
[2021-10-18] MEDS: Ezetimibe 10 MG TAB PO SCH (20:26)
[2021-10-18] MEDS: Gabapentin 300 MG CAP PO SCH (20:26)
[2021-10-18] MEDS: Atorvastatin Calcium 40 MG TAB PO SCH (20:26)
[2021-10-18] MEDS: Allopurinol 300 MG TAB PO SCH (20:27)
[2021-10-18] MEDS ORDERED: Metoprolol Tartrate 5 MG/5 ML VIAL IVP SCH (22:15)
[2021-10-19] MEDS ORDERED: Nitroglycerin 2% Ointment 1 INCH/1 GM Packet TOP SCH (01:45)
[2021-10-19] MEDS: Cefepime 1 GM in Sodium Chloride 0.9% 100 ML IVPB SCH (02:11)
[2021-10-19] MEDS ORDERED: VANCOMYCIN IVPB SCH (04:00)
[2021-10-19 04:45] LABS: Vancomycin, Random 17.9 ug/mL (See Comment)
[2021-10-19] MEDS ORDERED: Vancomycin HCl 750 MG in Sodium Chloride 0.9% 250 ML 250 ML IVPB SCH (09:00)
[2021-10-19] MEDS: Gabapentin 300 MG CAP PO SCH ×2 (09:22→22:36)
[2021-10-19] MEDS: Carvedilol 25 MG TAB PO SCH ×2 (09:23→16:00)
[2021-10-19] MEDS: Aspirin 81 mg Enteric Coated Tablet PO SCH (09:23)
[2021-10-19] MEDS: Folic Acid/Vit B Comp W-C PO SCH (09:23)
[2021-10-19] MEDS: cloNIDine 0.1 MG TAB PO SCH ×3 (09:23→22:37)
[2021-10-19] MEDS: hydrALAZINE 25 MG TAB PO SCH ×3 (09:23→22:37)
[2021-10-19] MEDS: Clopidogrel Bisulfate 75 MG TAB PO SCH (09:24)
[2021-10-19] MEDS: Dextrose 5 % And 0.9 % NaCl 1,000 ML IV SCH (09:43)
[2021-10-19] MEDS: Labetalol HCl 100 MG/20 ML VIAL SLOW IVP PRN (12:38)
[2021-10-19] MEDS ORDERED: hydrALAZINE 20 MG/ML VIAL SLOW IVP PRN (12:52)
[2021-10-19] MEDS ORDERED: hydrALAZINE 20 MG/ML VIAL SLOW IVP SCH (13:00)
[2021-10-19] MEDS ORDERED: NIFEdipine XL 60 MG TAB PO SCH (13:00)
[2021-10-19] MEDS: Allopurinol 300 MG TAB PO SCH (22:35)
[2021-10-19] MEDS: NIFEdipine XL 60 MG TAB PO SCH (22:36)
[2021-10-19] MEDS: Atorvastatin Calcium 40 MG TAB PO SCH (22:36)
[2021-10-19] MEDS: Ezetimibe 10 MG TAB PO SCH (22:37)
[2021-10-20] MEDS: Cefepime 1 GM in Sodium Chloride 0.9% 100 ML IVPB SCH (03:16)
[2021-10-20 05:28] LABS: #Basophils 0.1 thou/uL (0.0-0.2); #Eosinphils 0.2 thou/uL (0.0-0.7); #Lymphocytes 1.4 thou/uL (1.20-3.40); #Monocytes 0.7 thou/uL (0.11-0.59); #Neutrophils 7.5 thou/uL (1.40-6.50); %Basophils 0.6 % (0.0-1.0); %Eosinophils 2.3 % (0.0-10.0); %Lymphocytes 13.9 % (21.0-51.0); %Monocytes 7.2 % (0.0-10.0); Hemoglobin 8.6 g/dL (12.0-16.0); Mean Corpuscular HGB CONC 32.4 g/dL (32.0-36.0); Mean Corpuscular Hemoglobin 24.5 pg (27.0-31.0); Mean Corpuscular Volume 75.7 fL (78.0-98.0); Mean Platelet Volume 7.8 fL (7.4-10.4); Platelet Count 324 thou/uL (130-400); RBC Distribution Width 15.8 % (11.5-14.5); Red Blood Cell (RBC) Count 3.52 mill/uL (4.20-5.40); White Blood Cell (WBC) Count 9.8 thou/uL (4.8-10.8)
[2021-10-20 05:48] LABS: Anion Gap 12 mmol/L (10-20); BUN (Urea Nitrogen) 30 mg/dL (9.8-20.1); Calc. Creatinine Clearance 27 mL/min (70-130); Calcium 8.9 mg/dL (7.8-10.44); Carbon Dioxide 21 mmol/L (23-31); Chloride 113 mmol/L (98-107); Glucose 160 mg/dL (80-115); Potassium 3.8 mmol/L (3.5-5.1); Sodium 142 mmol/L (136-145)
[2021-10-20] MEDS: NIFEdipine XL 60 MG TAB PO SCH (08:22)
[2021-10-20] MEDS: hydrALAZINE 25 MG TAB PO SCH (08:22)
[2021-10-20] MEDS: Clopidogrel Bisulfate 75 MG TAB PO SCH (08:22)
[2021-10-20] MEDS: Aspirin 81 mg Enteric Coated Tablet PO SCH (08:23)
[2021-10-20] MEDS: cloNIDine 0.1 MG TAB PO SCH (08:23)
[2021-10-20] MEDS: Gabapentin 300 MG CAP PO SCH (08:23)
[2021-10-20] MEDS: Folic Acid/Vit B Comp W-C PO SCH (08:23)
[2021-10-20] MEDS: Carvedilol 25 MG TAB PO SCH (08:23)
[2021-10-20 08:29] VITALS: TEMP 98.6
[2021-10-20 09:47] LABS: Vancomycin, Random 15.6 ug/mL (See Comment)
[2021-10-20] MEDS ORDERED: Vancomycin 1 GM in Premix Bag 1 BAG IVPB SCH (10:30)
[2021-10-20] MEDS ORDERED: metFORMIN 500 MG TAB PO SCH (12:30)
[2021-10-20] MEDS ORDERED: Dextrose 5% in Water 1,000 ML IV PRN (12:37)
[2021-10-20] MEDS ORDERED: Dextrose 50% Abboject 50 ML SYRINGE SLOW IVP PRN (12:37)
[2021-10-20] MEDS ORDERED: HumaLOG 300 UNITS/3 ML VIAL SC PRN (12:37)
[2021-10-20 12:51] VITALS: BP 149/68
[2021-10-20] MEDS ORDERED: Cefdinir 300 MG CAP PO SCH (21:00)
== END 2021-10-20 15:24 | disposition home or self-care (01) | DRG 637 ==
LOC: ERS 20:40 → NEURO 23:05 → OBSVTOIN 10-19 15:08
PROVIDERS: ADMIT Internal Medicine; ATTEND Internal Medicine
DX: E11.649 Type 2 diabetes mellitus with hypoglycemia without coma (principal); J18.9 Pneumonia, unspecified organism; I21.4 Non-ST elevation (NSTEMI) myocardial infarction; G93.41 Metabolic encephalopathy; I50.33 Acute on chronic diastolic (congestive) heart failure; Z20.822 Contact with and (suspected) exposure to COVID-19; Z66 Do not resuscitate; I11.0 Hypertensive heart disease with heart failure; E78.5 Hyperlipidemia, unspecified; E11.22 Type 2 diabetes mellitus with diabetic chronic kidney disease; D63.1 Anemia in chronic kidney disease; N18.30 Chronic kidney disease, stage 3 unspecified; E11.51 Type 2 diabetes mellitus with diabetic peripheral angiopathy without gangrene; N17.9 Acute kidney failure, unspecified; Z88.0 Allergy status to penicillin; Z88.5 Allergy status to narcotic agent; Z79.82 Long term (current) use of aspirin; Z79.899 Other long term (current) drug therapy; Z79.4 Long term (current) use of insulin; Z86.73 Personal history of transient ischemic attack (TIA), and cerebral infarction without residual deficits; Z90.49 Acquired absence of other specified parts of digestive tract; Z90.710 Acquired absence of both cervix and uterus
CPT/HCPCS: 36415; 36416; 70450; 71045; 80048; 80053; 80202; 81003; 81015; 83605; 83880; 85025; 87040; 87086; 90471; 90662; 93005; 94760; 96365; 96366; 96375; 96376; G0008; G0378; J0360; J0692; J1815; J3370; J3490; J7050

== ENCOUNTER 2021-10-22 09:01 | Inpatient (IN) | payer MEDICARE ==
[2021-10-22] MEDS ORDERED: Lorazepam 2 MG/ML VIAL ONE ×2 (10:12→11:50)
[2021-10-22 10:15] LABS: Bilirubin Negative (Negative); Blood, Urine Trace (Negative); Clarity Clear (Clear); Glucose, Urine (Dipstick) 100 mg/dL (Negative); Ketone, Urine Negative (Negative); Leukocyte Negative Leu/uL (Negative); Nitrite Negative (Negative); Protein, Urine (Dipstick) 300 mg/dL (Neg-Trace); RBC/HPF 0-3 HPF (0-3); Specific Gravity, Urine 1.013 (1.002-1.036); Squamous Epithelial 0-3 HPF (0-3); Urobilinogen Normal mg/dL (Less than 2); WBC/HPF 0-3 HPF (0-3); pH, Urine 6.5 (5.0-9.0)
[2021-10-22 10:16] LABS: Bacteria/HPF Rare-Few HPF (None Seen)
[2021-10-22] MEDS ORDERED: Iopamidol-370 76% 500 ML 1 ML ONE (10:59)
[2021-10-22 11:10] LABS: Analyzer IN Cardio ER; Base Excess (BEa) -5.7 mEq/L (-2.0 to +3.0); CO2 Tension 34.7 mmHg (35.0-45.0); Calcium, Ionized (arterial) 1.24 mmol/L (1.12-1.30); Carboxyhemoglobin (COHb) 0.2 gm% (0.0-3.0); Hemoglobin (Hb) 10.6 g/dL (12.0-16.0); Potassium - ABG Lab 3.97 mmol/L (3.70-5.30); pH, Arterial 7.36 (7.35-7.45)
[2021-10-22 11:11] LABS: ALV-art Gradient 236.625 mmHg (0-20); Puncture Site RRA
[2021-10-22] MEDS ORDERED: fentaNYL Citrate/PF 2,000 MCG in Sodium Chloride 0.9% 60 ML IV SCH (11:15)
[2021-10-22] MEDS ORDERED: Rocuronium Bromide 10 MG/ML (10ML VIAL) IVP SCH (11:15)
[2021-10-22] MEDS ORDERED: Propofol 1,000 MG/100 ML VIAL IV ONE (11:33)
[2021-10-22] MEDS ORDERED: Labetalol HCl 100 MG/20 ML VIAL ONE (12:16)
[2021-10-22 13:33] LABS: #Eosinphils 0.1 thou/uL (0.0-0.7); #Lymphocytes 0.9 thou/uL (1.20-3.40); #Monocytes 0.3 thou/uL (0.11-0.59); #Neutrophils 11.5 thou/uL (1.40-6.50); %Basophils 0.1 % (0.0-1.0); %Eosinophils 0.8 % (0.0-10.0); %Lymphocytes 6.7 % (21.0-51.0); %Monocytes 2.2 % (0.0-10.0); %Neutrophils 90.2 % (42.0-75.0); Hemoglobin 8.7 g/dL (12.0-16.0); Mean Corpuscular HGB CONC 32.5 g/dL (32.0-36.0); Mean Corpuscular Hemoglobin 24.4 pg (27.0-31.0); Mean Platelet Volume 8.3 fL (7.4-10.4); Platelet Count 327 thou/uL (130-400); RBC Distribution Width 15.8 % (11.5-14.5); Red Blood Cell (RBC) Count 3.57 mill/uL (4.20-5.40); White Blood Cell (WBC) Count 12.8 thou/uL (4.8-10.8)
[2021-10-22 13:49] LABS: MDiff Complete? YES; Microcytosis SLIGHT = 6-15 cells (100X) (0-5/hpf); Platelet Morphology Comment Appears Adequate
[2021-10-22 13:54] LABS: ALT (SGPT) 15 U/L (8-55); AST (SGOT) 17 U/L (5-34); Albumin 2.8 g/dL (3.4-4.8); Alkaline Phosphatase 96 U/L (40-110); Anion Gap 13 mmol/L (10-20); BUN (Urea Nitrogen) 26 mg/dL (9.8-20.1); Bilirubin, Total 0.3 mg/dL (0.2-1.2); Calc. Creatinine Clearance 0 mL/min (70-130); Calcium 9.3 mg/dL (7.8-10.44); Carbon Dioxide 22 mmol/L (23-31); Chloride 113 mmol/L (98-107); Globulin 3.2 g/dL (2.4-3.5); Glucose 197 mg/dL (80-115); Sodium 144 mmol/L (136-145)
[2021-10-22 14:01] LABS: SARS-CoV-2 NAA Rapid Test Not Detected (NotDetected)
[2021-10-22 14:14] LABS: CKMB 1.8 ng/mL (0-6.6)
[2021-10-22] MEDS ORDERED: HumaLOG 300 UNITS/3 ML VIAL SC PRN (15:19)
[2021-10-22] MEDS ORDERED: Dextrose 50% Abboject 50 ML SYRINGE SLOW IVP PRN (15:19)
[2021-10-22] MEDS ORDERED: Dextrose 5% in Water 1,000 ML IV PRN (15:19)
[2021-10-22] MEDS ORDERED: Ondansetron PF 4 MG/2 ML Vial IVP PRN (15:19)
[2021-10-22] MEDS ORDERED: Dextrose 5 % And 0.9 % NaCl 1,000 ML IV SCH (15:30)
[2021-10-22] MEDS ORDERED: Heparin 25,000 units/D5W 500 ML IVPB SCH (15:30)
[2021-10-22] MEDS ORDERED: Heparin 10,000 UNITS/ 10 ML VIAL SLOW IVP SCH (15:30)
[2021-10-22 16:08] LABS: Hemoglobin 8.4 g/dL (12.0-16.0); Platelet Count 323 thou/uL (130-400)
[2021-10-22 16:34] LABS: Troponin I 0.088 ng/mL (< 0.028)
[2021-10-22] MEDS ORDERED: Propofol BOLUS 1,000 MG/100 ML VIAL IV PRN (18:45)
[2021-10-22] MEDS ORDERED: Morphine 2 MG/ML VIAL SLOW IVP PRN (18:45)
[2021-10-22] MEDS ORDERED: DISCONTINUE PREVIOUS NARCOTIC PAIN MEDICATIONS AND BENZODIAZEPINES FS SCH (18:45)
[2021-10-22] MEDS ORDERED: Fentanyl BOLUS 250 ML IVPB PRN (18:45)
[2021-10-22] MEDS: Propofol 1,000 MG/100 ML VIAL IV PRN ×2 (18:50→22:35)
[2021-10-22 20:07] LABS: Troponin I 0.234 ng/mL (< 0.028)
[2021-10-22] MEDS: niCARdipine 25 MG in Sodium Chloride 0.9% 250 ML 250 ML IVPB SCH (22:27)
[2021-10-22] MEDS: Lorazepam 2 MG/ML VIAL SLOW IVP PRN (22:27)
[2021-10-22] MEDS: Fentanyl CADD 100 ML IV SCH (23:12)
[2021-10-23 02:22] LABS: Troponin I 0.375 ng/mL (< 0.028)
[2021-10-23] MEDS ORDERED: Enoxaparin Sodium 100 MG/ML SYRINGE SC SCH (02:30)
[2021-10-23] MEDS: Propofol 1,000 MG/100 ML VIAL IV PRN ×5 (02:52→20:50)
[2021-10-23 04:32] LABS: #Eosinphils 0.2 thou/uL (0.0-0.7); #Lymphocytes 1.7 thou/uL (1.20-3.40); #Monocytes 0.6 thou/uL (0.11-0.59); #Neutrophils 8.6 thou/uL (1.40-6.50); %Basophils 0.1 % (0.0-1.0); %Eosinophils 1.6 % (0.0-10.0); %Lymphocytes 15.2 % (21.0-51.0); %Monocytes 5.5 % (0.0-10.0); %Neutrophils 77.5 % (42.0-75.0); Hemoglobin 7.6 g/dL (12.0-16.0); Mean Corpuscular HGB CONC 32.3 g/dL (32.0-36.0); Mean Corpuscular Volume 74.4 fL (78.0-98.0); Mean Platelet Volume 8.4 fL (7.4-10.4); Platelet Count 313 thou/uL (130-400); RBC Distribution Width 15.9 % (11.5-14.5); Red Blood Cell (RBC) Count 3.16 mill/uL (4.20-5.40); White Blood Cell (WBC) Count 11.1 thou/uL (4.8-10.8)
[2021-10-23] MEDS: Lorazepam 2 MG/ML VIAL SLOW IVP PRN ×2 (04:49→16:04)
[2021-10-23 04:51] LABS: Anion Gap 13 mmol/L (10-20); BUN (Urea Nitrogen) 30 mg/dL (9.8-20.1); Calc. Creatinine Clearance 29 mL/min (70-130); Calcium 8.6 mg/dL (7.8-10.44); Carbon Dioxide 22 mmol/L (23-31); Chloride 114 mmol/L (98-107); Glucose 124 mg/dL (80-115); Potassium 3.6 mmol/L (3.5-5.1); Sodium 145 mmol/L (136-145)
[2021-10-23] MEDS ORDERED: Furosemide 40 MG/4 ML VIAL SLOW IVP SCH ×2 (09:15→20:00)
[2021-10-23 11:29] LABS: Troponin I 0.396 ng/mL (< 0.028)
[2021-10-23] MEDS: niCARdipine 25 MG in Sodium Chloride 0.9% 250 ML 250 ML IVPB SCH ×2 (12:31→20:50)
[2021-10-23] MEDS: cefTRIAXone\\ROCEPHIN 1 GM in Sodium Chloride 0.9% 100 ML IVPB SCH (12:36)
[2021-10-23] MEDS: Fentanyl CADD 100 ML IV SCH (13:05)
[2021-10-23] MEDS: Heparin 25,000 units/D5W 500 ML IV SCH (14:08)
[2021-10-23] MEDS ORDERED: NIFEdipine 10 MG CAP PO SCH (15:00)
[2021-10-23] MEDS: hydrALAZINE 25 MG TAB PO SCH ×2 (15:39→20:50)
[2021-10-23] MEDS ORDERED: Sodium Bicarbonate Tab 325 MG TAB PER TUBE PRN (17:45)
[2021-10-23] MEDS ORDERED: Pancrelipase DR 12,000 1 CAP FS PRN (17:45)
[2021-10-23] MEDS ORDERED: Heparin 5,000 UNITS/ML VIAL SC SCH (21:00)
[2021-10-23] MEDS ORDERED: niCARdipine 50 MG in Sodium Chloride 0.9% 250 ML 230 ML IVPB SCH (23:50)
[2021-10-24] MEDS: niCARdipine 50 MG, Admixture Fee 1 EACH in Sodium Chloride 0.9% 250 ML 230 ML IVPB SCH ×2 (01:04→13:00)
[2021-10-24] MEDS: Fentanyl CADD 100 ML IV SCH ×2 (02:06→14:44)
[2021-10-24] MEDS: Propofol 1,000 MG/100 ML VIAL IV PRN ×4 (03:21→19:09)
[2021-10-24] MEDS: Heparin 25,000 units/D5W 500 ML IV SCH (03:21)
[2021-10-24 03:54] LABS: #Eosinphils 0.3 thou/uL (0.0-0.7); #Lymphocytes 2.2 thou/uL (1.20-3.40); #Monocytes 1.2 thou/uL (0.11-0.59); #Neutrophils 9.9 thou/uL (1.40-6.50); %Basophils 0.1 % (0.0-1.0); %Eosinophils 1.9 % (0.0-10.0); %Lymphocytes 16.2 % (21.0-51.0); %Monocytes 8.7 % (0.0-10.0); %Neutrophils 73.1 % (42.0-75.0); Hemoglobin 8.6 g/dL (12.0-16.0); Mean Corpuscular HGB CONC 32.2 g/dL (32.0-36.0); Mean Corpuscular Hemoglobin 24.4 pg (27.0-31.0); Mean Corpuscular Volume 75.9 fL (78.0-98.0); Platelet Count 313 thou/uL (130-400); RBC Distribution Width 16.4 % (11.5-14.5); Red Blood Cell (RBC) Count 3.52 mill/uL (4.20-5.40); White Blood Cell (WBC) Count 13.5 thou/uL (4.8-10.8)
[2021-10-24 04:25] LABS: Anion Gap 15 mmol/L (10-20); BUN (Urea Nitrogen) 29 mg/dL (9.8-20.1); Calc. Creatinine Clearance 26 mL/min (70-130); Calcium 8.6 mg/dL (7.8-10.44); Carbon Dioxide 21 mmol/L (23-31); Chloride 111 mmol/L (98-107); Glucose 156 mg/dL (80-115); Potassium 3.7 mmol/L (3.5-5.1); Sodium 143 mmol/L (136-145)
[2021-10-24 04:34] LABS: PTT 116.3 sec (22.9-36.1)
[2021-10-24 06:31] LABS: Actual Bicarbonate (HCO3a) 19.3 mEq/L (22-28); Base Excess (BEa) -3.8 mEq/L (-2.0 to +3.0); CO2 Tension 27.4 mmHg (35.0-45.0); Calcium, Ionized (arterial) 1.11 mmol/L (1.12-1.30); Carboxyhemoglobin (COHb) 0.2 gm% (0.0-3.0); Hemoglobin (Hb) 8.1 g/dL (12.0-16.0); Potassium - ABG Lab 3.62 mmol/L (3.70-5.30); pH, Arterial 7.47 (7.35-7.45)
[2021-10-24] MEDS: cefTRIAXone\\ROCEPHIN 1 GM in Sodium Chloride 0.9% 100 ML IVPB SCH (08:29)
[2021-10-24] MEDS: Amlodipine 10 MG TAB PO SCH (08:30)
[2021-10-24] MEDS: hydrALAZINE 25 MG TAB PO SCH ×3 (08:30→20:28)
[2021-10-24] MEDS: HumaLOG 300 UNITS/3 ML VIAL SC PRN ×3 (11:36→21:54)
[2021-10-24 12:10] LABS: PTT 130.4 sec (22.9-36.1)
[2021-10-24 14:36] LABS: Puncture Site RRA
[2021-10-24 15:38] LABS: Hemoglobin 8.7 g/dL (12.0-16.0); Platelet Count 291 thou/uL (130-400)
[2021-10-25] MEDS: Propofol 1,000 MG/100 ML VIAL IV PRN ×4 (01:11→21:12)
[2021-10-25] MEDS: Heparin 25,000 units/D5W 500 ML IV SCH ×2 (01:11→19:20)
[2021-10-25 03:45] LABS: #Eosinphils 0.2 thou/uL (0.0-0.7); #Lymphocytes 1.5 thou/uL (1.20-3.40); #Monocytes 1.2 thou/uL (0.11-0.59); #Neutrophils 8.7 thou/uL (1.40-6.50); %Basophils 0.2 % (0.0-1.0); %Eosinophils 1.5 % (0.0-10.0); %Lymphocytes 12.7 % (21.0-51.0); %Monocytes 10.4 % (0.0-10.0); %Neutrophils 75.2 % (42.0-75.0); Mean Corpuscular HGB CONC 32.6 g/dL (32.0-36.0); Mean Corpuscular Hemoglobin 24.6 pg (27.0-31.0); Mean Corpuscular Volume 75.6 fL (78.0-98.0); Mean Platelet Volume 8.7 fL (7.4-10.4); Platelet Count 254 thou/uL (130-400); RBC Distribution Width 16.2 % (11.5-14.5); Red Blood Cell (RBC) Count 2.86 mill/uL (4.20-5.40); White Blood Cell (WBC) Count 11.6 thou/uL (4.8-10.8)
[2021-10-25 03:56] LABS: Anion Gap 13 mmol/L (10-20); BUN (Urea Nitrogen) 31 mg/dL (9.8-20.1); Calc. Creatinine Clearance 26 mL/min (70-130); Carbon Dioxide 23 mmol/L (23-31); Chloride 109 mmol/L (98-107); Glucose 150 mg/dL (80-115); Potassium 3.7 mmol/L (3.5-5.1); Sodium 141 mmol/L (136-145)
[2021-10-25] MEDS: Fentanyl CADD 100 ML IV SCH ×2 (04:55→19:21)
[2021-10-25 06:39] LABS: Calcium, Ionized (arterial) 1.11 mmol/L (1.12-1.30); Carboxyhemoglobin (COHb) 0.3 gm% (0.0-3.0)
[2021-10-25 06:44] LABS: Actual Bicarbonate (HCO3a) 22.4 mEq/L (22-28); Base Excess (BEa) -3.2 mEq/L (-2.0 to +3.0); CO2 Tension 42.4 mmHg (35.0-45.0); pH, Arterial 7.34 (7.35-7.45)
[2021-10-25 07:03] LABS: O2 Tension (PaO2), arterial 56.5 mmHg (> 80.0)
[2021-10-25 07:07] LABS: Puncture Site LRA
[2021-10-25] MEDS: hydrALAZINE 25 MG TAB PO SCH ×3 (08:16→19:58)
[2021-10-25] MEDS: Amlodipine 10 MG TAB PO SCH (08:22)
[2021-10-25] MEDS: cefTRIAXone\\ROCEPHIN 1 GM in Sodium Chloride 0.9% 100 ML IVPB SCH (08:22)
[2021-10-25 09:09] LABS: INR-International Normal Ratio 1.2; Prothrombin Time 15.3 sec (12.0-14.7)
[2021-10-25] MEDS: Furosemide 40 MG/4 ML VIAL SLOW IVP SCH ×2 (12:10→21:12)
[2021-10-25] MEDS ORDERED: Fentanyl CADD 100 ML ONE (15:18)
[2021-10-25] MEDS: Labetalol HCl 100 MG/20 ML VIAL SLOW IVP PRN ×2 (17:15→21:12)
[2021-10-25] MEDS: Warfarin Sodium 5 MG TAB PO SCH (17:16)
[2021-10-25] MEDS: HumaLOG 300 UNITS/3 ML VIAL SC PRN (21:41)
[2021-10-25] MEDS: niCARdipine 50 MG, Admixture Fee 1 EACH in Sodium Chloride 0.9% 250 ML 230 ML IVPB SCH (22:00)
[2021-10-26] MEDS: Propofol 1,000 MG/100 ML VIAL IV PRN ×4 (02:13→23:11)
[2021-10-26] MEDS: niCARdipine 50 MG, Admixture Fee 1 EACH in Sodium Chloride 0.9% 250 ML 230 ML IVPB SCH ×3 (04:12→19:59)
[2021-10-26 05:05] LABS: #Eosinphils 0.1 thou/uL (0.0-0.7); #Lymphocytes 1.5 thou/uL (1.20-3.40); #Monocytes 1.3 thou/uL (0.11-0.59); #Neutrophils 11.6 thou/uL (1.40-6.50); %Basophils 0.3 % (0.0-1.0); %Lymphocytes 10.1 % (21.0-51.0); %Monocytes 8.8 % (0.0-10.0); %Neutrophils 79.8 % (42.0-75.0); Hemoglobin 9.1 g/dL (12.0-16.0); Mean Corpuscular HGB CONC 32.6 g/dL (32.0-36.0); Mean Corpuscular Volume 76.7 fL (78.0-98.0); Platelet Count 305 thou/uL (130-400); RBC Distribution Width 15.9 % (11.5-14.5); Red Blood Cell (RBC) Count 3.65 mill/uL (4.20-5.40); White Blood Cell (WBC) Count 14.6 thou/uL (4.8-10.8)
[2021-10-26 05:13] LABS: INR-International Normal Ratio 1.1; PTT 53.7 sec (22.9-36.1); Prothrombin Time 14.7 sec (12.0-14.7)
[2021-10-26 05:21] LABS: Anion Gap 15 mmol/L (10-20); BUN (Urea Nitrogen) 34 mg/dL (9.8-20.1); Calc. Creatinine Clearance 28 mL/min (70-130); Calcium 8.7 mg/dL (7.8-10.44); Carbon Dioxide 24 mmol/L (23-31); Chloride 105 mmol/L (98-107); Glucose 162 mg/dL (80-115); Potassium 3.9 mmol/L (3.5-5.1); Sodium 140 mmol/L (136-145)
[2021-10-26] MEDS: HumaLOG 300 UNITS/3 ML VIAL SC PRN ×4 (05:33→21:09)
[2021-10-26] MEDS: cefTRIAXone\\ROCEPHIN 1 GM in Sodium Chloride 0.9% 100 ML IVPB SCH (08:37)
[2021-10-26] MEDS: Furosemide 40 MG/4 ML VIAL SLOW IVP SCH (08:38)
[2021-10-26] MEDS: Amlodipine 10 MG TAB PO SCH (08:38)
[2021-10-26] MEDS: hydrALAZINE 25 MG TAB PO SCH ×3 (08:38→19:58)
[2021-10-26] MEDS ORDERED: Fentanyl CADD 100 ML ONE (09:20)
[2021-10-26] MEDS: Metoprolol Tartrate 50 MG TAB PO SCH ×2 (10:51→19:59)
[2021-10-26] MEDS: Fentanyl CADD 100 ML IV SCH (10:51)
[2021-10-26] MEDS ORDERED: Norepinephrine 4 MG/4 ML VIAL ONE (10:56)
[2021-10-26] MEDS: Furosemide 100 MG/10 ML VIAL SLOW IVP SCH ×2 (12:42→22:11)
[2021-10-26] MEDS: Heparin 25,000 units/D5W 500 ML IV SCH (14:42)
[2021-10-26 14:46] LABS: Hemoglobin 9.4 g/dL (12.0-16.0); Platelet Count 325 thou/uL (130-400)
[2021-10-26] MEDS: Warfarin Sodium 5 MG TAB PO SCH (16:38)
[2021-10-26] MEDS: Acetylcysteine 10% 100 MG/ML 30 ml Vial INH SCH ×2 (19:17→22:39)
[2021-10-26] MEDS: Cefepime 1 GM in Sodium Chloride 0.9% 100 ML IVPB SCH (19:58)
[2021-10-27] MEDS ORDERED: Fentanyl CADD 100 ML ONE (01:23)
[2021-10-27] MEDS: Acetylcysteine 10% 100 MG/ML 30 ml Vial INH SCH ×4 (01:24→18:19)
[2021-10-27] MEDS: Fentanyl CADD 100 ML IV SCH (01:35)
[2021-10-27] MEDS: Propofol 1,000 MG/100 ML VIAL IV PRN ×3 (05:15→20:06)
[2021-10-27] MEDS: Heparin 25,000 units/D5W 500 ML IV SCH ×2 (05:15→20:09)
[2021-10-27] MEDS: niCARdipine 50 MG, Admixture Fee 1 EACH in Sodium Chloride 0.9% 250 ML 230 ML IVPB SCH ×4 (05:15→21:53)
[2021-10-27 05:19] LABS: #Basophils 0.1 thou/uL (0.0-0.2); #Eosinphils 0.1 thou/uL (0.0-0.7); #Lymphocytes 1.9 thou/uL (1.20-3.40); #Monocytes 1.4 thou/uL (0.11-0.59); #Neutrophils 10.2 thou/uL (1.40-6.50); %Basophils 0.4 % (0.0-1.0); %Eosinophils 1.1 % (0.0-10.0); %Lymphocytes 13.8 % (21.0-51.0); %Monocytes 9.9 % (0.0-10.0); %Neutrophils 74.8 % (42.0-75.0); Hemoglobin 8.3 g/dL (12.0-16.0); Mean Corpuscular HGB CONC 32.6 g/dL (32.0-36.0); Mean Corpuscular Hemoglobin 24.9 pg (27.0-31.0); Mean Corpuscular Volume 76.2 fL (78.0-98.0); Mean Platelet Volume 9.5 fL (7.4-10.4); Platelet Count 306 thou/uL (130-400); Red Blood Cell (RBC) Count 3.33 mill/uL (4.20-5.40); White Blood Cell (WBC) Count 13.6 thou/uL (4.8-10.8)
[2021-10-27 05:28] LABS: INR-International Normal Ratio 1.1; Prothrombin Time 14.2 sec (12.0-14.7)
[2021-10-27 05:37] LABS: Anion Gap 15 mmol/L (10-20); BUN (Urea Nitrogen) 38 mg/dL (9.8-20.1); Calc. Creatinine Clearance 28 mL/min (70-130); Calcium 8.8 mg/dL (7.8-10.44); Carbon Dioxide 25 mmol/L (23-31); Chloride 105 mmol/L (98-107); Glucose 152 mg/dL (80-115); Potassium 3.8 mmol/L (3.5-5.1); Sodium 141 mmol/L (136-145)
[2021-10-27] MEDS: HumaLOG 300 UNITS/3 ML VIAL SC PRN ×4 (05:39→21:50)
[2021-10-27] MEDS: hydrALAZINE 25 MG TAB PO SCH ×3 (09:05→20:10)
[2021-10-27] MEDS: Amlodipine 10 MG TAB PO SCH (09:05)
[2021-10-27] MEDS: Metoprolol Tartrate 50 MG TAB PO SCH ×2 (09:06→20:10)
[2021-10-27] MEDS: Furosemide 100 MG/10 ML VIAL SLOW IVP SCH (12:02)
[2021-10-27] MEDS: Scopolamine 1.5 mg/72 hour Patch TOP SCH (15:42)
[2021-10-27] MEDS: Warfarin Sodium 5 MG TAB PO SCH (15:42)
[2021-10-27] MEDS: Labetalol HCl 100 MG/20 ML VIAL SLOW IVP PRN (15:43)
[2021-10-27] MEDS: Lorazepam 2 MG/ML VIAL SLOW IVP PRN (17:40)
[2021-10-27] MEDS ORDERED: Morphine 4 MG/ML VIAL SLOW IVP PRN (18:15)
[2021-10-27 19:53] LABS: Vancomycin, Random 2.6 ug/mL (See Comment)
[2021-10-27] MEDS: Cefepime 1 GM in Sodium Chloride 0.9% 100 ML IVPB SCH (20:09)
[2021-10-27] MEDS: Senokot S 8.6-50 MG TAB PO SCH (20:09)
[2021-10-27] MEDS ORDERED: Vancomycin 1.5 GRAM/300 ML BAG 1.5 GM in Premix Bag 1 BAG IVPB SCH (20:30)
[2021-10-28] MEDS: Labetalol HCl 100 MG/20 ML VIAL SLOW IVP PRN ×3 (01:00→15:31)
[2021-10-28] MEDS: Acetylcysteine 10% 100 MG/ML 30 ml Vial INH SCH ×4 (01:41→19:16)
[2021-10-28] MEDS: niCARdipine 50 MG, Admixture Fee 1 EACH in Sodium Chloride 0.9% 250 ML 230 ML IVPB SCH ×2 (02:05→06:02)
[2021-10-28] MEDS: Propofol 1,000 MG/100 ML VIAL IV PRN ×5 (02:05→20:12)
[2021-10-28 04:57] LABS: #Basophils 0.1 thou/uL (0.0-0.2); #Eosinphils 0.3 thou/uL (0.0-0.7); #Lymphocytes 1.8 thou/uL (1.20-3.40); #Monocytes 1.4 thou/uL (0.11-0.59); #Neutrophils 8.9 thou/uL (1.40-6.50); %Basophils 0.7 % (0.0-1.0); %Lymphocytes 14.8 % (21.0-51.0); %Neutrophils 71.5 % (42.0-75.0); Hemoglobin 8.2 g/dL (12.0-16.0); Mean Corpuscular HGB CONC 32.2 g/dL (32.0-36.0); Mean Corpuscular Hemoglobin 24.6 pg (27.0-31.0); Mean Corpuscular Volume 76.4 fL (78.0-98.0); Mean Platelet Volume 8.4 fL (7.4-10.4); Platelet Count 315 thou/uL (130-400); RBC Distribution Width 16.2 % (11.5-14.5); Red Blood Cell (RBC) Count 3.32 mill/uL (4.20-5.40); White Blood Cell (WBC) Count 12.5 thou/uL (4.8-10.8)
[2021-10-28 05:08] LABS: INR-International Normal Ratio 1.2; Prothrombin Time 14.9 sec (12.0-14.7)
[2021-10-28] MEDS: HumaLOG 300 UNITS/3 ML VIAL SC PRN ×3 (05:14→15:47)
[2021-10-28 05:18] LABS: Anion Gap 16 mmol/L (10-20); BUN (Urea Nitrogen) 44 mg/dL (9.8-20.1); Calc. Creatinine Clearance 28 mL/min (70-130); Calcium 9.3 mg/dL (7.8-10.44); Carbon Dioxide 23 mmol/L (23-31); Chloride 102 mmol/L (98-107); Glucose 195 mg/dL (80-115); Potassium 3.9 mmol/L (3.5-5.1); Sodium 137 mmol/L (136-145)
[2021-10-28] MEDS: hydrALAZINE 25 MG TAB PO SCH ×3 (08:49→20:11)
[2021-10-28] MEDS: Amlodipine 10 MG TAB PO SCH (08:50)
[2021-10-28] MEDS: Metoprolol Tartrate 50 MG TAB PO SCH ×2 (08:50→20:12)
[2021-10-28] MEDS: Senokot S 8.6-50 MG TAB PO SCH ×2 (08:51→20:12)
[2021-10-28] MEDS: Polyethylene Glycol 3350 17 GM Packet PER TUBE SCH (08:51)
[2021-10-28] MEDS: NICARDIPINE IVPB SCH ×2 (09:15→17:48)
[2021-10-28] MEDS: SODIUM CHLORIDE IVPB SCH ×2 (09:15→17:48)
[2021-10-28] MEDS: ADMIXTURE FEE IVPB SCH ×2 (09:15→17:48)
[2021-10-28] MEDS: Pantoprazole 40 MG VIAL IVP SCH (12:08)
[2021-10-28] MEDS ORDERED: Lidocaine 1% (PF) 30 ML VIAL ONE (12:35)
[2021-10-28] MEDS ORDERED: Fentanyl 100 MCG/2 ML VIAL ONE (12:40)
[2021-10-28] MEDS: Heparin 25,000 units/D5W 500 ML IV SCH (14:43)
[2021-10-28 15:46] LABS: Hemoglobin 8.4 g/dL (12.0-16.0); Platelet Count 319 thou/uL (130-400)
[2021-10-28] MEDS: Lorazepam 2 MG/ML VIAL SLOW IVP PRN (18:05)
[2021-10-28] MEDS: Cefepime 1 GM in Sodium Chloride 0.9% 100 ML IVPB SCH (20:10)
[2021-10-28] MEDS ORDERED: Vancomycin 1.5 GRAM/300 ML BAG 1.5 GM in Premix Bag 1 BAG IVPB SCH (21:00)
[2021-10-28 21:36] LABS: Vancomycin, Random 18.5 ug/mL (See Comment)
[2021-10-28] MEDS ORDERED: Vancomycin HCl 750 MG in Sodium Chloride 0.9% 250 ML 250 ML IVPB SCH (23:00)
[2021-10-29] MEDS: NICARDIPINE IVPB SCH ×4 (00:04→20:44)
[2021-10-29] MEDS: ADMIXTURE FEE IVPB SCH ×4 (00:04→20:44)
[2021-10-29] MEDS: SODIUM CHLORIDE IVPB SCH ×4 (00:04→20:44)
[2021-10-29] MEDS: Propofol 1,000 MG/100 ML VIAL IV PRN ×5 (00:31→20:46)
[2021-10-29] MEDS: Labetalol HCl 100 MG/20 ML VIAL SLOW IVP PRN (01:25)
[2021-10-29] MEDS: Lorazepam 2 MG/ML VIAL SLOW IVP PRN ×2 (01:49→23:23)
[2021-10-29] MEDS: Fentanyl CADD 100 ML IV SCH ×2 (02:29→22:20)
[2021-10-29] MEDS: Acetylcysteine 10% 100 MG/ML 30 ml Vial INH SCH ×4 (03:12→19:14)
[2021-10-29] MEDS: HumaLOG 300 UNITS/3 ML VIAL SC PRN ×3 (04:35→18:40)
[2021-10-29 04:57] LABS: #Basophils 0.1 thou/uL (0.0-0.2); #Eosinphils 0.4 thou/uL (0.0-0.7); #Lymphocytes 1.8 thou/uL (1.20-3.40); #Monocytes 1.3 thou/uL (0.11-0.59); #Neutrophils 7.8 thou/uL (1.40-6.50); %Basophils 0.5 % (0.0-1.0); %Eosinophils 3.8 % (0.0-10.0); %Monocytes 11.6 % (0.0-10.0); Hemoglobin 7.6 g/dL (12.0-16.0); Mean Corpuscular HGB CONC 32.5 g/dL (32.0-36.0); Mean Corpuscular Hemoglobin 24.7 pg (27.0-31.0); Mean Corpuscular Volume 76.2 fL (78.0-98.0); Mean Platelet Volume 8.8 fL (7.4-10.4); Platelet Count 280 thou/uL (130-400); RBC Distribution Width 16.3 % (11.5-14.5); Red Blood Cell (RBC) Count 3.05 mill/uL (4.20-5.40); White Blood Cell (WBC) Count 11.5 thou/uL (4.8-10.8)
[2021-10-29 05:02] LABS: INR-International Normal Ratio 1.2; Prothrombin Time 15.8 sec (12.0-14.7)
[2021-10-29 05:03] LABS: PTT 73.9 sec (22.9-36.1)
[2021-10-29 05:14] LABS: Anion Gap 15 mmol/L (10-20); BUN (Urea Nitrogen) 47 mg/dL (9.8-20.1); Calc. Creatinine Clearance 28 mL/min (70-130); Carbon Dioxide 22 mmol/L (23-31); Chloride 104 mmol/L (98-107); Glucose 162 mg/dL (80-115); Potassium 3.9 mmol/L (3.5-5.1); Sodium 137 mmol/L (136-145)
[2021-10-29] MEDS: Heparin 25,000 units/D5W 500 ML IV SCH ×2 (05:30→18:46)
[2021-10-29] MEDS ORDERED: Epoetin (ESRD) 20,000 UNITS/ML SC SCH (06:00)
[2021-10-29] MEDS: Minoxidil 2.5 MG TAB PER TUBE SCH (08:04)
[2021-10-29] MEDS: Polyethylene Glycol 3350 17 GM Packet PER TUBE SCH (09:19)
[2021-10-29] MEDS: Senokot S 8.6-50 MG TAB PO SCH ×2 (09:20→20:46)
[2021-10-29] MEDS: Amlodipine 10 MG TAB PO SCH (09:20)
[2021-10-29] MEDS: Metoprolol Tartrate 50 MG TAB PO SCH ×2 (09:20→20:46)
[2021-10-29] MEDS: hydrALAZINE 25 MG TAB PO SCH ×3 (09:21→20:46)
[2021-10-29] MEDS: Pantoprazole 40 MG VIAL IVP SCH (09:29)
[2021-10-29] MEDS: EPOETIN ALFA-EPBX (ESRD) 4,000 UNIT/ML VIAL SC SCH (09:30)
[2021-10-29] MEDS: Metoclopramide HCl 10 MG/2 ML VIAL IVP SCH ×3 (09:30→20:46)
[2021-10-29] MEDS: Cefepime 1 GM in Sodium Chloride 0.9% 100 ML IVPB SCH (20:46)
[2021-10-29 22:44] LABS: Vancomycin, Random 21.1 ug/mL (See Comment)
[2021-10-30] MEDS: Acetylcysteine 10% 100 MG/ML 30 ml Vial INH SCH ×4 (03:37→18:33)
[2021-10-30 04:46] LABS: #Eosinphils 0.4 thou/uL (0.0-0.7); #Lymphocytes 1.3 thou/uL (1.20-3.40); #Monocytes 1.5 thou/uL (0.11-0.59); #Neutrophils 9.6 thou/uL (1.40-6.50); %Basophils 0.2 % (0.0-1.0); %Eosinophils 2.9 % (0.0-10.0); %Lymphocytes 10.3 % (21.0-51.0); %Monocytes 11.6 % (0.0-10.0); %Neutrophils 75.1 % (42.0-75.0); Hemoglobin 7.8 g/dL (12.0-16.0); Mean Corpuscular HGB CONC 31.3 g/dL (32.0-36.0); Mean Corpuscular Hemoglobin 24.5 pg (27.0-31.0); Mean Corpuscular Volume 78.3 fL (78.0-98.0); Mean Platelet Volume 8.9 fL (7.4-10.4); Platelet Count 301 thou/uL (130-400); RBC Distribution Width 16.2 % (11.5-14.5); White Blood Cell (WBC) Count 12.8 thou/uL (4.8-10.8)
[2021-10-30 04:50] LABS: INR-International Normal Ratio 1.1; Prothrombin Time 14.5 sec (12.0-14.7)
[2021-10-30 04:58] LABS: Anion Gap 16 mmol/L (10-20); BUN (Urea Nitrogen) 53 mg/dL (9.8-20.1); Calc. Creatinine Clearance 25 mL/min (70-130); Calcium 9.6 mg/dL (7.8-10.44); Carbon Dioxide 23 mmol/L (23-31); Chloride 102 mmol/L (98-107); Glucose 123 mg/dL (80-115); Potassium 4.5 mmol/L (3.5-5.1); Sodium 136 mmol/L (136-145)
[2021-10-30] MEDS: ADMIXTURE FEE IVPB SCH (05:10)
[2021-10-30] MEDS: SODIUM CHLORIDE IVPB SCH (05:10)
[2021-10-30] MEDS: NICARDIPINE IVPB SCH (05:10)
[2021-10-30] MEDS: Metoclopramide HCl 10 MG/2 ML VIAL IVP SCH ×4 (05:13→21:13)
[2021-10-30] MEDS: hydrALAZINE 25 MG TAB PO SCH ×3 (07:52→21:14)
[2021-10-30] MEDS: Propofol 1,000 MG/100 ML VIAL IV PRN ×2 (07:52→23:08)
[2021-10-30] MEDS: Senokot S 8.6-50 MG TAB PO SCH ×2 (07:52→21:14)
[2021-10-30] MEDS: Metoprolol Tartrate 50 MG TAB PO SCH ×2 (07:53→21:14)
[2021-10-30] MEDS: Amlodipine 10 MG TAB PO SCH (07:53)
[2021-10-30] MEDS: Minoxidil 2.5 MG TAB PER TUBE SCH (07:55)
[2021-10-30 08:13] LABS: Actual Bicarbonate (HCO3a) 19.2 mEq/L (22-28); Base Excess (BEa) -8.5 mEq/L (-2.0 to +3.0); Calcium, Ionized (arterial) 1.22 mmol/L (1.12-1.30); Hemoglobin (Hb) 8.4 g/dL (12.0-16.0)
[2021-10-30 08:18] LABS: Puncture Site LRA; pH, Arterial 7.19 (7.35-7.45)
[2021-10-30] MEDS: Pantoprazole 40 MG VIAL IVP SCH (08:31)
[2021-10-30] MEDS: Polyethylene Glycol 3350 17 GM Packet PER TUBE SCH (08:31)
[2021-10-30] MEDS: Fentanyl CADD 100 ML IV SCH ×2 (10:35→22:53)
[2021-10-30] MEDS: Albumin 25% 25 GM/100 ML BOT IVPB SCH ×3 (10:35→21:15)
[2021-10-30 10:59] LABS: PTT 102.7 sec (22.9-36.1)
[2021-10-30 12:19] LABS: Bilirubin Negative (Negative); Blood, Urine 2+ (Negative); Clarity Turbid (Clear); Glucose, Urine (Dipstick) Normal (Negative); Ketone, Urine Negative (Negative); Leukocyte 250 Leu/uL (Negative); Nitrite Negative (Negative); Protein, Urine (Dipstick) 100 mg/dL (Neg-Trace); Specific Gravity, Urine 1.012 (1.002-1.036); Squamous Epithelial 0-3 HPF (0-3); Urobilinogen Normal mg/dL (Less than 2); pH, Urine 5.5 (5.0-9.0)
[2021-10-30] MEDS: Heparin 25,000 units/D5W 500 ML IV SCH ×2 (12:25→23:04)
[2021-10-30 12:36] LABS: Bacteria/HPF 1+ HPF (None Seen)
[2021-10-30 12:37] LABS: Yeast-Budding 2+ HPF (None Seen)
[2021-10-30 15:34] LABS: Hemoglobin 7.1 g/dL (12.0-16.0); Platelet Count 282 thou/uL (130-400)
[2021-10-30 17:13] LABS: SARS-CoV-2 PCR by NAA Not Detected (NotDetected)
[2021-10-30] MEDS: Scopolamine 1.5 mg/72 hour Patch TOP SCH (17:27)
[2021-10-30] MEDS: Cefepime 1 GM in Sodium Chloride 0.9% 100 ML IVPB SCH (21:14)
[2021-10-30 23:18] LABS: Vancomycin, Random 19.3 ug/mL (See Comment)
[2021-10-31] MEDS: Vancomycin HCl 500 MG in Sodium Chloride 0.9% 100 ML IVPB SCH ×2 (00:41→08:12)
[2021-10-31] MEDS: Acetylcysteine 10% 100 MG/ML 30 ml Vial INH SCH ×4 (01:04→18:43)
[2021-10-31] MEDS: Albumin 25% 25 GM/100 ML BOT IVPB SCH (02:36)
[2021-10-31] MEDS: Metoclopramide HCl 10 MG/2 ML VIAL IVP SCH ×4 (02:36→20:55)
[2021-10-31 05:21] LABS: #Basophils 0.1 thou/uL (0.0-0.2); #Eosinphils 0.3 thou/uL (0.0-0.7); #Lymphocytes 1.1 thou/uL (1.20-3.40); #Monocytes 0.9 thou/uL (0.11-0.59); #Neutrophils 8.5 thou/uL (1.40-6.50); %Basophils 0.5 % (0.0-1.0); %Eosinophils 2.7 % (0.0-10.0); %Lymphocytes 9.7 % (21.0-51.0); %Monocytes 8.2 % (0.0-10.0); %Neutrophils 78.9 % (42.0-75.0); Hemoglobin 6.9 g/dL (12.0-16.0); Mean Corpuscular HGB CONC 32.3 g/dL (32.0-36.0); Mean Corpuscular Hemoglobin 24.6 pg (27.0-31.0); Mean Corpuscular Volume 76.3 fL (78.0-98.0); Mean Platelet Volume 8.5 fL (7.4-10.4); Platelet Count 287 thou/uL (130-400); RBC Distribution Width 16.6 % (11.5-14.5); Red Blood Cell (RBC) Count 2.79 mill/uL (4.20-5.40); White Blood Cell (WBC) Count 10.8 thou/uL (4.8-10.8)
[2021-10-31 05:28] LABS: INR-International Normal Ratio 1.2; Prothrombin Time 15.4 sec (12.0-14.7)
[2021-10-31 05:35] LABS: Anion Gap 18 mmol/L (10-20); BUN (Urea Nitrogen) 53 mg/dL (9.8-20.1); Calc. Creatinine Clearance 24 mL/min (70-130); Calcium 9.6 mg/dL (7.8-10.44); Carbon Dioxide 17 mmol/L (23-31); Chloride 103 mmol/L (98-107); Glucose 138 mg/dL (80-115); Potassium 4.2 mmol/L (3.5-5.1); Sodium 134 mmol/L (136-145)
[2021-10-31] MEDS ORDERED: Vancomycin HCl 500 MG in Sodium Chloride 0.9% 100 ML IVPB SCH (07:00)
[2021-10-31] MEDS: Metoprolol Tartrate 50 MG TAB PO SCH ×2 (08:27→20:55)
[2021-10-31] MEDS: hydrALAZINE 25 MG TAB PO SCH ×3 (08:27→20:55)
[2021-10-31] MEDS: Amlodipine 10 MG TAB PO SCH (08:27)
[2021-10-31] MEDS: Polyethylene Glycol 3350 17 GM Packet PER TUBE SCH (08:27)
[2021-10-31] MEDS: Senokot S 8.6-50 MG TAB PO SCH ×2 (08:27→20:55)
[2021-10-31] MEDS: Minoxidil 2.5 MG TAB PER TUBE SCH (08:30)
[2021-10-31] MEDS: Propofol 1,000 MG/100 ML VIAL IV PRN ×3 (08:37→23:19)
[2021-10-31] MEDS: Pantoprazole 40 MG VIAL IVP SCH (09:57)
[2021-10-31] MEDS: Fentanyl CADD 100 ML IV SCH (10:56)
[2021-10-31 13:04] LABS: Iron Less than 8 ug/dL (50-170); Iron Binding Capacity, Total 184 mcg/dL (265-497)
[2021-10-31] MEDS ORDERED: Metoclopramide 10 MG/10 ML UDCUP ONE (14:09)
[2021-10-31 14:12] LABS: Actual Bicarbonate (HCO3v) 19 mEq/L (22-28); Base Excess -7.5 mEq/L (-2.0 to +3.0); Calcium, Ionized (venous) 1.16 mmol/L (1.16-1.32); Chloride (VBG) 103 mmol/L (98-106); Potassium (VBG) 4.08 mmol/L (3.70-5.30); pH (venous) 7.28 (7.32-7.43)
[2021-10-31] MEDS: Heparin 25,000 units/D5W 500 ML IV SCH (14:29)
[2021-10-31] MEDS ORDERED: Sterile Water 10 ML VIAL IVP SCH (17:45)
[2021-10-31] MEDS ORDERED: Activase 2 MG VIAL CATH SCH (17:45)
[2021-10-31] MEDS: Cefepime 1 GM in Sodium Chloride 0.9% 100 ML IVPB SCH (20:56)
[2021-11-01] MEDS: Fentanyl CADD 100 ML IV SCH ×2 (01:43→18:51)
[2021-11-01] MEDS: Metoclopramide HCl 10 MG/2 ML VIAL IVP SCH ×4 (01:43→21:12)
[2021-11-01] MEDS: Acetylcysteine 10% 100 MG/ML 30 ml Vial INH SCH ×4 (01:46→22:59)
[2021-11-01] MEDS: Heparin 25,000 units/D5W 500 ML IV SCH (02:22)
[2021-11-01 04:50] LABS: #Eosinphils 0.2 thou/uL (0.0-0.7); #Lymphocytes 1.1 thou/uL (1.20-3.40); #Monocytes 1.1 thou/uL (0.11-0.59); #Neutrophils 12.1 thou/uL (1.40-6.50); %Basophils 0.2 % (0.0-1.0); %Eosinophils 1.3 % (0.0-10.0); %Lymphocytes 7.6 % (21.0-51.0); %Monocytes 7.6 % (0.0-10.0); %Neutrophils 83.3 % (42.0-75.0); Hemoglobin 8.4 g/dL (12.0-16.0); Mean Corpuscular HGB CONC 32.4 g/dL (32.0-36.0); Mean Corpuscular Hemoglobin 24.8 pg (27.0-31.0); Mean Corpuscular Volume 76.6 fL (78.0-98.0); Mean Platelet Volume 8.4 fL (7.4-10.4); Platelet Count 319 thou/uL (130-400); RBC Distribution Width 16.7 % (11.5-14.5); Red Blood Cell (RBC) Count 3.39 mill/uL (4.20-5.40); White Blood Cell (WBC) Count 14.5 thou/uL (4.8-10.8)
[2021-11-01 05:02] LABS: INR-International Normal Ratio 1.3; Prothrombin Time 15.9 sec (12.0-14.7)
[2021-11-01 05:15] LABS: Anion Gap 20 mmol/L (10-20); BUN (Urea Nitrogen) 53 mg/dL (9.8-20.1); Calc. Creatinine Clearance 22 mL/min (70-130); Calcium 9.5 mg/dL (7.8-10.44); Carbon Dioxide 17 mmol/L (23-31); Chloride 101 mmol/L (98-107); Glucose 154 mg/dL (80-115); Potassium 3.9 mmol/L (3.5-5.1); Sodium 134 mmol/L (136-145)
[2021-11-01] MEDS: Propofol 1,000 MG/100 ML VIAL IV PRN ×2 (06:17→14:12)
[2021-11-01] MEDS: Labetalol HCl 100 MG/20 ML VIAL SLOW IVP PRN (06:18)
[2021-11-01 07:22] LABS: Actual Bicarbonate (HCO3a) 18.8 mEq/L (22-28); Base Excess (BEa) -7.7 mEq/L (-2.0 to +3.0); CO2 Tension 42.4 mmHg (35.0-45.0); Calcium, Ionized (arterial) 1.24 mmol/L (1.12-1.30); Carboxyhemoglobin (COHb) 0.4 gm% (0.0-3.0); Hemoglobin (Hb) 8.9 g/dL (12.0-16.0); Potassium - ABG Lab 3.85 mmol/L (3.70-5.30); pH, Arterial 7.26 (7.35-7.45)
[2021-11-01 07:52] LABS: O2 Tension (PaO2), arterial 58.3 mmHg (> 80.0)
[2021-11-01 07:53] LABS: Puncture Site LRA
[2021-11-01 08:11] LABS: Vancomycin, Random 21.6 ug/mL (See Comment)
[2021-11-01] MEDS: Senokot S 8.6-50 MG TAB PO SCH ×2 (08:17→21:13)
[2021-11-01] MEDS: Polyethylene Glycol 3350 17 GM Packet PER TUBE SCH (08:17)
[2021-11-01] MEDS: hydrALAZINE 25 MG TAB PO SCH ×3 (08:17→21:13)
[2021-11-01] MEDS: Metoprolol Tartrate 50 MG TAB PO SCH ×2 (08:17→21:13)
[2021-11-01] MEDS: Amlodipine 10 MG TAB PO SCH (08:17)
[2021-11-01] MEDS: Pantoprazole 40 MG VIAL IVP SCH (08:17)
[2021-11-01] MEDS: Minoxidil 2.5 MG TAB PER TUBE SCH (08:18)
[2021-11-01] MEDS: Sodium Bicarbonate 50 MEQ in Sodium Chloride 0.45% 1,000 ML IV SCH ×2 (10:46→21:14)
[2021-11-01] MEDS: HumaLOG 300 UNITS/3 ML VIAL SC PRN (10:48)
[2021-11-01 13:46] LABS: Lactic Acid 0.5 mmol/L (0.5-2.2)
[2021-11-01 16:09] LABS: Hemoglobin 8.4 g/dL (12.0-16.0); Platelet Count 307 thou/uL (130-400)
[2021-11-01] MEDS ORDERED: Sterile Water 10 ML VIAL IVP SCH (17:00)
[2021-11-01] MEDS ORDERED: Activase 2 MG VIAL CATH SCH (17:00)
[2021-11-01] MEDS: Apixaban 5 MG TAB PO SCH (21:13)
[2021-11-01] MEDS: Cefepime 1 GM in Sodium Chloride 0.9% 100 ML IVPB SCH (21:14)
[2021-11-02] MEDS: Propofol 1,000 MG/100 ML VIAL IV PRN ×5 (01:32→23:49)
[2021-11-02] MEDS: Metoclopramide HCl 10 MG/2 ML VIAL IVP SCH ×4 (01:40→21:30)
[2021-11-02] MEDS: Acetylcysteine 10% 100 MG/ML 30 ml Vial INH SCH ×5 (03:07→23:13)
[2021-11-02 05:10] LABS: #Eosinphils 0.1 thou/uL (0.0-0.7); #Lymphocytes 1.1 thou/uL (1.20-3.40); #Monocytes 1.2 thou/uL (0.11-0.59); #Neutrophils 13.3 thou/uL (1.40-6.50); %Basophils 0.1 % (0.0-1.0); %Eosinophils 0.9 % (0.0-10.0); %Lymphocytes 6.8 % (21.0-51.0); %Monocytes 7.8 % (0.0-10.0); %Neutrophils 84.4 % (42.0-75.0); Mean Corpuscular HGB CONC 32.7 g/dL (32.0-36.0); Mean Corpuscular Hemoglobin 24.9 pg (27.0-31.0); Mean Corpuscular Volume 76.3 fL (78.0-98.0); Mean Platelet Volume 8.5 fL (7.4-10.4); Platelet Count 309 thou/uL (130-400); RBC Distribution Width 16.9 % (11.5-14.5); Red Blood Cell (RBC) Count 3.23 mill/uL (4.20-5.40); White Blood Cell (WBC) Count 15.8 thou/uL (4.8-10.8)
[2021-11-02 05:18] LABS: INR-International Normal Ratio 1.5; Prothrombin Time 18.5 sec (12.0-14.7)
[2021-11-02 05:48] LABS: Anion Gap 20 mmol/L (10-20); BUN (Urea Nitrogen) 59 mg/dL (9.8-20.1); Calc. Creatinine Clearance 23 mL/min (70-130); Calcium 9.6 mg/dL (7.8-10.44); Carbon Dioxide 17 mmol/L (23-31); Chloride 102 mmol/L (98-107); Glucose 159 mg/dL (80-115); Potassium 3.7 mmol/L (3.5-5.1); Sodium 135 mmol/L (136-145)
[2021-11-02 07:29] LABS: Actual Bicarbonate (HCO3a) 19.4 mEq/L (22-28); Base Excess (BEa) -6.4 mEq/L (-2.0 to +3.0); CO2 Tension 39.5 mmHg (35.0-45.0); Calcium, Ionized (arterial) 1.21 mmol/L (1.12-1.30); Carboxyhemoglobin (COHb) 0.5 gm% (0.0-3.0); Hemoglobin (Hb) 9.8 g/dL (12.0-16.0); Potassium - ABG Lab 3.63 mmol/L (3.70-5.30); pH, Arterial 7.31 (7.35-7.45)
[2021-11-02 07:30] LABS: ALV-art Gradient 317.425 mmHg (0-20); Puncture Site LRA
[2021-11-02] MEDS: Labetalol HCl 100 MG/20 ML VIAL SLOW IVP PRN (07:37)
[2021-11-02 08:22] LABS: Vancomycin, Random 18.5 ug/mL (See Comment)
[2021-11-02] MEDS ORDERED: Vancomycin HCl 500 MG in Sodium Chloride 0.9% 100 ML IVPB SCH (09:00)
[2021-11-02] MEDS: Polyethylene Glycol 3350 17 GM Packet PER TUBE SCH (09:17)
[2021-11-02] MEDS: hydrALAZINE 25 MG TAB PO SCH ×3 (09:17→20:24)
[2021-11-02] MEDS: Senokot S 8.6-50 MG TAB PO SCH ×2 (09:17→20:23)
[2021-11-02] MEDS: Minoxidil 2.5 MG TAB PER TUBE SCH (09:18)
[2021-11-02] MEDS: Metoprolol Tartrate 50 MG TAB PO SCH ×2 (09:18→20:26)
[2021-11-02] MEDS: Amlodipine 10 MG TAB PO SCH (09:18)
[2021-11-02] MEDS: Apixaban 5 MG TAB PO SCH ×2 (09:18→20:26)
[2021-11-02] MEDS: Pantoprazole 40 MG VIAL IVP SCH (09:19)
[2021-11-02] MEDS: ADMIXTURE FEE IVPB SCH ×2 (11:33→20:41)
[2021-11-02] MEDS: SODIUM CHLORIDE IVPB SCH ×2 (11:33→20:41)
[2021-11-02] MEDS: NICARDIPINE IVPB SCH ×2 (11:33→20:41)
[2021-11-02] MEDS ORDERED: Furosemide 40 MG/4 ML VIAL SLOW IVP SCH (12:15)
[2021-11-02] MEDS: Scopolamine 1.5 mg/72 hour Patch TOP SCH (15:44)
[2021-11-02] MEDS: Sodium Bicarbonate 50 MEQ in Sodium Chloride 0.45% 1,000 ML IV SCH (19:04)
[2021-11-02] MEDS: Cefepime 1 GM in Sodium Chloride 0.9% 100 ML IVPB SCH (20:25)
[2021-11-03] MEDS: Metoclopramide HCl 10 MG/2 ML VIAL IVP SCH ×4 (02:50→20:09)
[2021-11-03] MEDS: Propofol 1,000 MG/100 ML VIAL IV PRN ×5 (02:52→21:06)
[2021-11-03 05:06] LABS: INR-International Normal Ratio 1.8; Prothrombin Time 20.8 sec (12.0-14.7)
[2021-11-03 05:11] LABS: Anion Gap 18 mmol/L (10-20); BUN (Urea Nitrogen) 63 mg/dL (9.8-20.1); Calc. Creatinine Clearance 23 mL/min (70-130); Calcium 9.3 mg/dL (7.8-10.44); Carbon Dioxide 19 mmol/L (23-31); Chloride 102 mmol/L (98-107); Glucose 164 mg/dL (80-115); Potassium 3.4 mmol/L (3.5-5.1); Sodium 136 mmol/L (136-145)
[2021-11-03 05:22] LABS: #Basophils 0.1 thou/uL (0.0-0.2); #Eosinphils 0.3 thou/uL (0.0-0.7); #Lymphocytes 0.9 thou/uL (1.20-3.40); #Neutrophils 14.4 thou/uL (1.40-6.50); %Basophils 0.3 % (0.0-1.0); %Eosinophils 1.7 % (0.0-10.0); %Lymphocytes 5.6 % (21.0-51.0); %Monocytes 6.2 % (0.0-10.0); %Neutrophils 86.1 % (42.0-75.0); Mean Corpuscular HGB CONC 33.6 g/dL (32.0-36.0); Mean Corpuscular Hemoglobin 25.1 pg (27.0-31.0); Mean Corpuscular Volume 74.8 fL (78.0-98.0); Platelet Count 309 thou/uL (130-400); RBC Distribution Width 17.2 % (11.5-14.5); Red Blood Cell (RBC) Count 3.17 mill/uL (4.20-5.40); White Blood Cell (WBC) Count 16.7 thou/uL (4.8-10.8)
[2021-11-03] MEDS: Sodium Bicarbonate 50 MEQ in Sodium Chloride 0.45% 1,000 ML IV SCH ×3 (05:48→22:39)
[2021-11-03] MEDS: HumaLOG 300 UNITS/3 ML VIAL SC PRN ×4 (05:49→22:17)
[2021-11-03] MEDS ORDERED: Potassium Chloride 20 MEQ TAB PO SCH (06:00)
[2021-11-03] MEDS: Acetylcysteine 10% 100 MG/ML 30 ml Vial INH SCH ×4 (07:41→23:34)
[2021-11-03 08:10] LABS: Actual Bicarbonate (HCO3a) 18.1 mEq/L (22-28); Base Excess (BEa) -6.5 mEq/L (-2.0 to +3.0); CO2 Tension 32.1 mmHg (35.0-45.0); Calcium, Ionized (arterial) 1.16 mmol/L (1.12-1.30); Hemoglobin (Hb) 8.1 g/dL (12.0-16.0); O2 Tension (PaO2), arterial 65.1 mmHg (> 80.0); Potassium - ABG Lab 3.41 mmol/L (3.70-5.30); pH, Arterial 7.37 (7.35-7.45)
[2021-11-03 08:12] LABS: ALV-art Gradient 322.575 mmHg (0-20); Puncture Site LBA
[2021-11-03] MEDS ORDERED: Furosemide 40 MG/4 ML VIAL SLOW IVP SCH (08:45)
[2021-11-03] MEDS ORDERED: Sterile Water 20 ML ONE (08:55)
[2021-11-03] MEDS: hydrALAZINE 25 MG TAB PO SCH ×3 (09:54→20:10)
[2021-11-03] MEDS: Metoprolol Tartrate 50 MG TAB PO SCH ×2 (09:54→20:09)
[2021-11-03] MEDS: Minoxidil 2.5 MG TAB PER TUBE SCH (09:55)
[2021-11-03] MEDS: Apixaban 5 MG TAB PO SCH ×2 (09:55→20:10)
[2021-11-03] MEDS: Senokot S 8.6-50 MG TAB PO SCH ×2 (09:55→20:09)
[2021-11-03] MEDS: Polyethylene Glycol 3350 17 GM Packet PER TUBE SCH (09:55)
[2021-11-03] MEDS: Amlodipine 10 MG TAB PO SCH (09:55)
[2021-11-03] MEDS: Pantoprazole 40 MG VIAL IVP SCH (09:56)
[2021-11-03] MEDS: Labetalol HCl 100 MG/20 ML VIAL SLOW IVP PRN ×2 (10:32→22:18)
[2021-11-03] MEDS: Lorazepam 2 MG/ML VIAL SLOW IVP PRN (11:33)
[2021-11-03] MEDS ORDERED: Vancomycin HCl 500 MG in Sodium Chloride 0.9% 100 ML IVPB SCH (12:00)
[2021-11-03 16:04] LABS: Hemoglobin 8.1 g/dL (12.0-16.0); Platelet Count 314 thou/uL (130-400)
[2021-11-03] MEDS: Furosemide 40 MG/4 ML VIAL SLOW IVP SCH (17:52)
[2021-11-03] MEDS: Cefepime 1 GM in Sodium Chloride 0.9% 100 ML IVPB SCH (20:09)
[2021-11-04] MEDS: Lorazepam 2 MG/ML VIAL SLOW IVP PRN ×3 (00:13→05:05)
[2021-11-04] MEDS: Propofol 1,000 MG/100 ML VIAL IV PRN ×6 (00:13→21:25)
[2021-11-04] MEDS: Metoclopramide HCl 10 MG/2 ML VIAL IVP SCH ×4 (03:01→19:53)
[2021-11-04 04:11] LABS: #Basophils 0.1 thou/uL (0.0-0.2); #Eosinphils 0.2 thou/uL (0.0-0.7); #Monocytes 1.1 thou/uL (0.11-0.59); #Neutrophils 11.4 thou/uL (1.40-6.50); %Basophils 0.4 % (0.0-1.0); %Eosinophils 1.5 % (0.0-10.0); %Lymphocytes 7.4 % (21.0-51.0); %Monocytes 7.8 % (0.0-10.0); %Neutrophils 82.9 % (42.0-75.0); Hemoglobin 7.1 g/dL (12.0-16.0); Mean Corpuscular HGB CONC 32.8 g/dL (32.0-36.0); Mean Corpuscular Hemoglobin 24.8 pg (27.0-31.0); Mean Corpuscular Volume 75.5 fL (78.0-98.0); Mean Platelet Volume 8.4 fL (7.4-10.4); Platelet Count 310 thou/uL (130-400); RBC Distribution Width 17.1 % (11.5-14.5); Red Blood Cell (RBC) Count 2.88 mill/uL (4.20-5.40); White Blood Cell (WBC) Count 13.8 thou/uL (4.8-10.8)
[2021-11-04 04:13] LABS: INR-International Normal Ratio 1.7; Prothrombin Time 20.2 sec (12.0-14.7)
[2021-11-04 04:25] LABS: Anion Gap 19 mmol/L (10-20); BUN (Urea Nitrogen) 65 mg/dL (9.8-20.1); Calc. Creatinine Clearance 21 mL/min (70-130); Calcium 8.8 mg/dL (7.8-10.44); Carbon Dioxide 18 mmol/L (23-31); Chloride 102 mmol/L (98-107); Glucose 158 mg/dL (80-115); Potassium 3.5 mmol/L (3.5-5.1); Sodium 135 mmol/L (136-145)
[2021-11-04] MEDS: Furosemide 40 MG/4 ML VIAL SLOW IVP SCH ×3 (05:05→20:00)
[2021-11-04 05:32] VITALS: BMI 41.1
[2021-11-04] MEDS: Acetylcysteine 10% 100 MG/ML 30 ml Vial INH SCH ×4 (07:16→23:11)
[2021-11-04] MEDS: Polyethylene Glycol 3350 17 GM Packet PER TUBE SCH (08:41)
[2021-11-04] MEDS: Senokot S 8.6-50 MG TAB PO SCH ×2 (08:41→20:01)
[2021-11-04] MEDS: Amlodipine 10 MG TAB PO SCH (08:42)
[2021-11-04] MEDS: Metoprolol Tartrate 50 MG TAB PO SCH ×2 (08:42→20:00)
[2021-11-04] MEDS: hydrALAZINE 25 MG TAB PO SCH ×4 (08:42→20:00)
[2021-11-04] MEDS: Apixaban 5 MG TAB PO SCH ×2 (08:42→20:00)
[2021-11-04] MEDS: Minoxidil 2.5 MG TAB PER TUBE SCH (08:45)
[2021-11-04] MEDS: Fentanyl CADD 100 ML IV SCH (08:46)
[2021-11-04] MEDS: Sodium Bicarbonate 50 MEQ in Sodium Chloride 0.45% 1,000 ML IV SCH ×2 (08:50→19:41)
[2021-11-04] MEDS: Pantoprazole 40 MG VIAL IVP SCH (08:51)
[2021-11-04] MEDS ORDERED: Furosemide 40 MG/4 ML VIAL SLOW IVP SCH (09:15)
[2021-11-04] MEDS: HumaLOG 300 UNITS/3 ML VIAL SC PRN (11:04)
[2021-11-04 11:34] LABS: Vancomycin, Random 23.2 ug/mL (See Comment)
[2021-11-04] MEDS: Cefepime 1 GM in Sodium Chloride 0.9% 100 ML IVPB SCH (20:01)
[2021-11-05] MEDS: Propofol 1,000 MG/100 ML VIAL IV PRN ×4 (01:37→12:36)
[2021-11-05] MEDS: Metoclopramide HCl 10 MG/2 ML VIAL IVP SCH ×2 (01:37→09:28)
[2021-11-05] MEDS: HumaLOG 300 UNITS/3 ML VIAL SC PRN (04:18)
[2021-11-05] MEDS: Fentanyl CADD 100 ML IV SCH (05:08)
[2021-11-05] MEDS: Sodium Bicarbonate 50 MEQ in Sodium Chloride 0.45% 1,000 ML IV SCH (05:21)
[2021-11-05 05:22] LABS: #Basophils 0.1 thou/uL (0.0-0.2); #Eosinphils 0.3 thou/uL (0.0-0.7); #Lymphocytes 1.1 thou/uL (1.20-3.40); #Monocytes 1.2 thou/uL (0.11-0.59); #Neutrophils 11.5 thou/uL (1.40-6.50); %Basophils 0.4 % (0.0-1.0); %Eosinophils 2.1 % (0.0-10.0); %Lymphocytes 7.8 % (21.0-51.0); %Monocytes 8.2 % (0.0-10.0); %Neutrophils 81.5 % (42.0-75.0); Hemoglobin 7.4 g/dL (12.0-16.0); INR-International Normal Ratio 1.6; Mean Corpuscular HGB CONC 33.1 g/dL (32.0-36.0); Mean Corpuscular Hemoglobin 24.7 pg (27.0-31.0); Mean Corpuscular Volume 74.6 fL (78.0-98.0); Mean Platelet Volume 8.4 fL (7.4-10.4); Platelet Count 336 thou/uL (130-400); Prothrombin Time 18.9 sec (12.0-14.7); RBC Distribution Width 17.4 % (11.5-14.5); Red Blood Cell (RBC) Count 2.99 mill/uL (4.20-5.40); White Blood Cell (WBC) Count 14.1 thou/uL (4.8-10.8)
[2021-11-05 05:36] LABS: Anion Gap 20 mmol/L (10-20); BUN (Urea Nitrogen) 69 mg/dL (9.8-20.1); Calc. Creatinine Clearance 22 mL/min (70-130); Calcium 8.6 mg/dL (7.8-10.44); Carbon Dioxide 18 mmol/L (23-31); Chloride 100 mmol/L (98-107); Glucose 172 mg/dL (80-115); Potassium 3.6 mmol/L (3.5-5.1); Sodium 134 mmol/L (136-145)
[2021-11-05 07:03] VITALS: BP 141/80
[2021-11-05] MEDS: Acetylcysteine 10% 100 MG/ML 30 ml Vial INH SCH (07:10)
[2021-11-05] MEDS: Amlodipine 10 MG TAB PO SCH (09:12)
[2021-11-05] MEDS: hydrALAZINE 25 MG TAB PO SCH (09:12)
[2021-11-05] MEDS: Polyethylene Glycol 3350 17 GM Packet PER TUBE SCH (09:12)
[2021-11-05] MEDS: Pantoprazole 40 MG VIAL IVP SCH (09:12)
[2021-11-05] MEDS: Metoprolol Tartrate 50 MG TAB PO SCH (09:13)
[2021-11-05] MEDS: Minoxidil 2.5 MG TAB PER TUBE SCH (09:13)
[2021-11-05] MEDS: Apixaban 5 MG TAB PO SCH (09:13)
[2021-11-05] MEDS: Senokot S 8.6-50 MG TAB PO SCH (09:13)
[2021-11-05] MEDS: Furosemide 40 MG/4 ML VIAL SLOW IVP SCH (09:25)
[2021-11-05] MEDS: EPOETIN ALFA-EPBX (ESRD) 4,000 UNIT/ML VIAL SC SCH (09:26)
[2021-11-05 10:22] VITALS: TEMP 99.6
[2021-11-05] MEDS: Lorazepam 2 MG/ML VIAL SLOW IVP PRN (12:36)
[2021-11-08] MEDS ORDERED: Apixaban 5 MG TAB PO SCH (21:00)
== END 2021-11-05 12:38 | disposition hospice, inpatient (51) | DRG 207 ==
LOC: ERS 09:01 → CCU 14:21
PROVIDERS: ADMIT Internal Medicine; ATTEND Internal Medicine
PROC: 5A1955Z Respiratory Ventilation, Greater than 96 Consecutive Hours (ICD-10-PCS; principal; 2021-10-22)
PROC: 0BH17EZ Insertion of Endotracheal Airway into Trachea, Via Natural or Artificial Opening (ICD-10-PCS; 2021-10-22)
PROC: 0D9670Z Drainage of Stomach with Drainage Device, Via Natural or Artificial Opening (ICD-10-PCS; 2021-10-22)
PROC: 02HV33Z Insertion of Infusion Device into Superior Vena Cava, Percutaneous Approach (ICD-10-PCS; 2021-10-22)
PROC: 3E0G76Z Introduction of Nutritional Substance into Upper GI, Via Natural or Artificial Opening (ICD-10-PCS; 2021-10-23)
PROC: 30233N1 Transfusion of Nonautologous Red Blood Cells into Peripheral Vein, Percutaneous Approach (ICD-10-PCS; 2021-10-25)
PROC: 0BC68ZZ Extirpation of Matter from Right Lower Lobe Bronchus, Via Natural or Artificial Opening Endoscopic (ICD-10-PCS; 2021-10-28)
PROC: 0BC38ZZ Extirpation of Matter from Right Main Bronchus, Via Natural or Artificial Opening Endoscopic (ICD-10-PCS; 2021-10-28)
DX: I26.99 Other pulmonary embolism without acute cor pulmonale (principal); I50.33 Acute on chronic diastolic (congestive) heart failure; J18.9 Pneumonia, unspecified organism; J96.21 Acute and chronic respiratory failure with hypoxia; I16.1 Hypertensive emergency; N17.9 Acute kidney failure, unspecified; I13.0 Hypertensive heart and chronic kidney disease with heart failure and stage 1 through stage 4 chronic kidney disease, or unspecified chronic kidney disease; N18.4 Chronic kidney disease, stage 4 (severe); Z68.41 Body mass index [BMI] 40.0-44.9, adult; L03.115 Cellulitis of right lower limb; G93.49 Other encephalopathy; J98.11 Atelectasis; K56.7 Ileus, unspecified; I69.354 Hemiplegia and hemiparesis following cerebral infarction affecting left non-dominant side; Z51.5 Encounter for palliative care; E11.649 Type 2 diabetes mellitus with hypoglycemia without coma; D63.1 Anemia in chronic kidney disease; E11.51 Type 2 diabetes mellitus with diabetic peripheral angiopathy without gangrene; E11.22 Type 2 diabetes mellitus with diabetic chronic kidney disease; D50.9 Iron deficiency anemia, unspecified; E66.9 Obesity, unspecified; I77.811 Abdominal aortic ectasia; E78.5 Hyperlipidemia, unspecified; E78.00 Pure hypercholesterolemia, unspecified; Z20.822 Contact with and (suspected) exposure to COVID-19; R00.1 Bradycardia, unspecified; Z66 Do not resuscitate; Z88.5 Allergy status to narcotic agent; Z78.1 Physical restraint status; Z88.0 Allergy status to penicillin; Z90.49 Acquired absence of other specified parts of digestive tract; Z90.710 Acquired absence of both cervix and uterus; Z87.891 Personal history of nicotine dependence; Z79.899 Other long term (current) drug therapy; Z79.82 Long term (current) use of aspirin; Z79.02 Long term (current) use of antithrombotics/antiplatelets; Z79.4 Long term (current) use of insulin; Z83.3 Family history of diabetes mellitus; Z82.49 Family history of ischemic heart disease and other diseases of the circulatory system; Z95.820 Peripheral vascular angioplasty status with implants and grafts
CPT/HCPCS: 0240U; 31500; 36415; 36416; 36430; 36556; 36600; 70450; 71045; 71275; 80048; 80053; 80202; 81001; 81003; 81015; 82553; 82728; 82805; 83540; 83550; 83605; 83880; 84484; 85014; 85018; 85025; 85049; 85379; 85610; 85730; 86850; 86900; 86901; 87040; 87070; 87205; 93005; 93970; 94002; 94003; 94640; 96365; 96366; 96368; 96375; 96376; 99292; C9113; J0692; J0696; J1642; J1644; J1650; J1815; J1940; J2001; J2060; J2270; J2704; J2765; J2997; J3010; J3370; J3490; J7030; J7042; J7050; J7608; J7620; P9016; P9047; Q5105; Q9967; U0003; U0005

== ENCOUNTER 2021-11-05 12:52 | Inpatient (IN) | payer OTHER ==
[2021-11-05] MEDS ORDERED: Lorazepam 2 MG/ML VIAL SLOW IVP PRN (14:19)
[2021-11-05] MEDS ORDERED: Morphine 4 MG/ML VIAL SLOW IVP PRN (14:20)
[2021-11-05] MEDS ORDERED: Glycopyrrolate 0.4 MG/ 2 ML VIAL SLOW IVP PRN (14:28)
[2021-11-05] MEDS ORDERED: Lorazepam 2 MG/ML VIAL SLOW IVP SCH (14:30)
[2021-11-05] MEDS ORDERED: Morphine 4 MG/ML VIAL SLOW IVP SCH ×2 (14:30)
[2021-11-05] MEDS ORDERED: Glycopyrrolate 0.2 MG/ML 5 ML SYRINGE SLOW IVP PRN (17:00)
== END 2021-11-05 15:06 | disposition expired | DRG 951 ==
LOC: CCU 12:52
PROVIDERS: ADMIT Family Medicine; ATTEND Family Medicine
DX: Z51.5 Encounter for palliative care (principal); J96.01 Acute respiratory failure with hypoxia; I26.99 Other pulmonary embolism without acute cor pulmonale; I50.33 Acute on chronic diastolic (congestive) heart failure; I13.0 Hypertensive heart and chronic kidney disease with heart failure and stage 1 through stage 4 chronic kidney disease, or unspecified chronic kidney disease; I16.1 Hypertensive emergency; N17.9 Acute kidney failure, unspecified; N18.9 Chronic kidney disease, unspecified; E11.51 Type 2 diabetes mellitus with diabetic peripheral angiopathy without gangrene; E11.22 Type 2 diabetes mellitus with diabetic chronic kidney disease; D50.9 Iron deficiency anemia, unspecified; Z66 Do not resuscitate; E78.5 Hyperlipidemia, unspecified; Z88.5 Allergy status to narcotic agent; Z88.0 Allergy status to penicillin; Z86.73 Personal history of transient ischemic attack (TIA), and cerebral infarction without residual deficits; I25.2 Old myocardial infarction
CPT/HCPCS: J2270